=== PATIENT | male | born 1975 ===

== ENCOUNTER 2017-03-17 14:52 | Inpatient (IN) | payer OTHER ==
[2017-03-17 14:52] VITALS: BMI 38.8
[2017-03-17] MEDS ORDERED: Piperacillin/Tazobact 3.375 GM in Sodium Chloride 0.9% 100 ML IVPB STA (15:12)
[2017-03-17] MEDS ORDERED: Sodium Chloride 0.9% 1,000 ML IV STA ×2 (15:12→16:28)
--- NOTE | 2017-03-17 15:25 | ED PDOC ---
Lower Extremity Pain/Injury Time Seen by Provider: 03/17/17 15:01 Chief Complaint (Nursing): Lower Extremity Problem/Injury Chief Complaint (Provider): Left foot pain History Per: Patient History/Exam Limitations: no limitations Onset/Duration Of Symptoms: Worse Since (yesterday) Current Symptoms Are (Timing): Still Present Additional Complaint(s): Gucci is a 42 y/o male with a past medical history of diabetes and hypertension , who presents to the ED complaining of left foot pain, worsening since yesterday. Reports that he has had a wound to the bottom left foot for the past year but today noticed it became erythematous with associated swelling. Patient [facility] to be [facility] and has had multiple surgeries on his foot related to complications with diabetes. Admits that the last 2 weeks he has not had his diabetes medication because he ran out. Pain from the left foot radiates up to his left groin. Also complaining of polyuria and polydipsia, generalized weakness, fatigue, and excessive sleepiness. No associated fever, chills, or recent trauma. PMD: Unknown Past Medical History Reviewed: Historical Data, Nursing Documentation, Vital Signs Vital Signs: Last Vital Signs Temp 98.6 F 03/17/17 14:54 Pulse 89 03/17/17 14:54 Resp 19 03/17/17 14:54 BP 151/88 H 03/17/17 14:54 Pulse Ox 100 03/17/17 14:54 - Medical History PMH: Diabetes (type II, diabetic neuropathy w/in b/l feet, diabetic foot ulcers) , HTN, Hypercholesterolemia Denies: AMI-STEMI, Arthritis, CHF, COPD, CVA, Hepatitis, HIV, Hypothyroidism , Chronic Kidney Disease, Rheumatoid Arthritis, Seizures, Sexually Transmitted Disease Other PMH: diabetic neuropathy - Surgical History Surgical History: Denies: CABG Other surgeries: Foot surgery - Family History Family History: States: Diabetes, Hypertension - Social History Current smoker - smoking cessation education provided: No Alcohol: None Drugs: Denies - Immunization History Hx Tetanus Toxoid Vaccination: Yes - Home Medications Home Medications: Ambulatory Orders Medication Instructions Recorded MetFORMIN [glucoPHAGE] 1,000 mg PO BID 04/24/14 Glipizide 10 mg PO DAILY #30 tab 04/29/14 Atorvastatin [Lipitor] 20 mg PO DAILY 02/10/15 Lisinopril [Zestril] 5 mg PO DAILY 02/10/15 - Allergies Allergies/Adverse Reactions: Allergies Allergy/AdvReac Type Severity Reaction Status Date / Time No Known Allergies Allergy Verified 01/26/15 13:33 Review of Systems ROS Statement: Except As Marked, All Systems Reviewed And Found Negative (As per HPI) Constitutional: Positive for: Weakness (generalized), Other (Fatigue, sleepiness ). Negative for: Fever, Chills Gastrointestinal: Positive for: Other (Polyuria and polydipsia) Musculoskeletal: Positive for: Foot Pain (Left foot, radiating up to left groin , with erythema and swelling) Physical Exam - Reviewed Nursing Documentation Reviewed: Yes Vital Signs Reviewed: Yes - Physical Exam Appears: Positive for: Non-toxic, No Acute Distress Head Exam: Positive for: ATRAUMATIC, NORMOCEPHALIC Skin: Positive for: Warm, Dry Eye Exam: Positive for: EOMI, PERRL ENT: Positive for: Other (tacky muc membranes) Neck: Positive for: Painless ROM, Supple Cardiovascular/Chest: Positive for: Regular Rate, Rhythm, Chest Non Tender. Negative for: Murmur Respiratory: Positive for: Normal Breath Sounds. Negative for: Wheezing, Respiratory Distress Gastrointestinal/Abdominal: Positive for: Bowel Sounds, Soft. Negative for: Tenderness Back: Positive for: Normal Inspection. Negative for: Decreased ROM Extremity: Positive for: Calf Tenderness (LEFT), Swelling, Other (LEFT foot: open wound at plantar foot head of 5th metatarsal 1cm in depth, visible cartilage? (pale white tissue). Decreased light touch sentation bilateral feet.) Lymphatic: Negative for: Adenopathy Neurologic/Psych: Positive for: Alert. Negative for: Motor/Sensory Deficits - Laboratory Results Result Diagrams: 03/17/17 15:29 03/17/17 15:29 - ECG O2 Sat by Pulse Oximetry: 100 (RA) Pulse Ox Interpretation: Normal Medical Decision Making Medical Decision Making: Initial Impression: Diabetic foot ulceration, Hyperglycemia Differential also includes but not limited to: sepsis, DKA, electrolyte abnormality, osteomyelitis. Time: 15:02 Initial Plan: --CMP --Magnesium --Osmolality serum --Phosphorous --CBC --PTT --Prothrombin time --Blood and wound culture --Accucheck --VBG --NS IV 1000 ml at 1000 mls/hr --Vancomycin 1 gm IV --Zosyn IV --EKG --CXR one view --X-Ray Left Foot Pain --Pending reevaluation and disposition Labs demonstrate hyperglycemia with normal AG and VBG ph >7.30, elevated lactic acid, minimally elevated osmolality, normal WBC. IV insulin and additional IVF ordered. Does not meet sepsis criteria, but does have concerning glucose levels that require pt to be hospitalized and monitored. [facility] resident [facility] Pod[facility] resident [facility] pt findings. Time: 16:33 --Patient will be admitted to Inpatient Telemetry for Dehydration, Left foot diabetic foot ulceration and cellulitis, and Uncontrolled diabetes, under the care of Dr. Luz Maria Zapata Scribe Attestation: Documented by Cristina Jeffery, acting as a scribe for Natalia Henley MD Provider Scribe Attestation: All medical record entries made by the Scribe were at my direction and personally dictated by me. I have reviewed the chart and agree that the record accurately reflects my personal performance of the history, physical exam, medical decision making, and the department course for this patient. I have also personally directed, reviewed, and agree with the discharge instructions and disposition. Disposition - Clinical Impression Clinical Impression: Diabetic foot ulcer, Cellulitis of foot, Uncontrolled diabetes mellitus - Patient ED Disposition Is Patient to be Admitted: Yes - Disposition Disposition Time: 16:00 Condition: GUARDED - Pt Status Changed To: Hospital Disposition Of: Inpatient - Admit Certification Admit to Inpatient:: After my assessment, the patient will require hospitalization for at least two midnights. This is because of the severity of symptoms shown, intensity of services needed, and/or the medical risk in this patient being treated as an outpatient. - POA Present On Arrival: Poor Glycemic Control
[2017-03-17] MEDS ORDERED: Piperacillin/Tazobact 3.375 gm Inj IVPB ONE (15:27)
[2017-03-17 15:38] LABS: BASO # 0.1 K/uL (0.0-0.2); BASO % 0.8 % (0.0-2.0); EOS # 0.2 K/uL (0.0-0.7); HEMATOCRIT 41.3 % (35.0-51.0); LYMPH # 1.8 K/uL (1.0-4.3); LYMPH % 23.6 % (20.0-40.0); MEAN CELL VOLUME 84.9 fl (80.0-94.0); MEAN CORPUSCULAR HEMOGLOBIN 28.2 pg (27.0-31.0); MEAN CORPUSCULAR HGB CONC 33.2 g/dL (33.0-37.0); MEAN PLATELET VOLUME 10.9 fl (7.2-11.7); MONO # 0.5 K/uL (0.0-0.8); MONO % 7.2 % (0.0-10.0); NEUT % 65.4 % (50.0-75.0); NRBC % 0.2 % (0.0-0.0); RED CELL DISTRIBUTION WIDTH 13.6 % (11.5-14.5); WHITE BLOOD COUNT 7.6 K/uL (4.8-10.8)
[2017-03-17 15:48] LABS: VENOUS BLOOD GAS BASE EXCESS 2.4 mmol/L (0.0-2.0); VENOUS BLOOD GAS PCO2 60 mmHg (40-60); VENOUS BLOOD PH 7.31 (7.32-7.43)
[2017-03-17 15:49] LABS: PARTIAL THROMBOPLASTIN TIME 31.4 Seconds (25.6-37.1)
[2017-03-17 16:00] LABS: ALB/GLOB RATIO 1.1 (1.0-2.1); ALKALINE PHOSPHATASE 98 U/L (38-126); ALT/SGPT 117 U/L (21-72); AST/SGOT 58 U/L (17-59); BILIRUBIN,TOTAL 0.5 mg/dl (0.2-1.3); BLOOD UREA NITROGEN 17 mg/dl (9-20); CALCIUM 9.2 mg/dL (8.4-10.2); CARBON DIOXIDE 26 mmol/L (22-30); CHLORIDE 96 mmol/L (98-107); GFR AFRICAN-AMERICAN > 60; MAGNESIUM 1.5 MG/DL (1.6-2.3); PHOSPHOROUS 3.9 mg/dl (2.5-4.5); POTASSIUM 4.8 MMOL/L (3.6-5.0); SODIUM 134 mmol/l (132-148); TOTAL PROTEIN 7.5 G/DL (6.3-8.2)
[2017-03-17 16:10] LABS: GLUCOSE,RANDOM 614 mg/dL (75-110)
[2017-03-17] MEDS ORDERED: Insulin Regular 100 units/ml SC STA (16:11)
[2017-03-17] MEDS ORDERED: Insulin Regular 100 units/ml IVP STA ×2 (16:12→16:28)
[2017-03-17] MEDS ORDERED: Insulin Regular 100 units/ml ONE (16:30)
[2017-03-17] MEDS ORDERED: Vancomycin 1 g Inj ONE (16:56)
[2017-03-17] MEDS ORDERED: Magnesium Sulfate 2 gm/50 ml 2 GM/50 ML BAG IVPB ONE (17:10)
[2017-03-17 17:24] LABS: ABG ALLEN TEST YES; ARTERIAL BLOOD GAS HCO3 25.7 mmol/L (21-28); ARTERIAL BLOOD GAS PO2 80 mm/Hg (80-100)
--- NOTE | 2017-03-17 18:26 | CP.PCM.CON ---
History of Present Illness - History of Present Illness History of Present Illness: Podiatry consult note for Dr. Washington 42 y/o male with PMHx of DM, HTN, and hypercholestrolemia seen at bedside in ED for increased swelling and pain to his left foot. Patient states that he has had a wound on the bottom of the left foot for the past year but it has been open and getting worst for about 3 weeks now. 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 Patient states that he cleans the wound daily and changes the dressing. Patient states that he sees Dr. Gilmore but has not seen him over a year now. Patient states that the pain from his left foot is radiating up the leg. Patient denies of any other pedal complains at this time. Patient admits that he has not taken his diabetes medications for past couple of weeks because he ran out of them. Patient denies of any recent F/N/V/C/SOB/CP today. 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 Allergies: denies SHx: denies of smoking, drinking or any illicit drug usage Review of Systems - Constitutional Constitutional: As Per HPI Past Patient History - Infectious Disease Hx of Infectious Diseases: None - Tetanus Immunizations Tetanus Immunization: Unknown - Past Medical History & Family History Past Medical History?: Yes - Past Social History Alcohol: None Drugs: Denies - CARDIAC Hx Congestive Heart Failure: No Hx Hypercholesterolemia: Yes Hx Hypertension: Yes - PULMONARY Hx Chronic Obstructive Pulmonary Disease (COPD): No - NEUROLOGICAL Hx Seizures: No - HEENT Hx HEENT Problems: No - RENAL Hx Chronic Kidney Disease: No - ENDOCRINE/METABOLIC Hx Hypothyroidism: No - HEMATOLOGICAL/ONCOLOGICAL Hx Human Immunodeficiency Virus (HIV): No - INTEGUMENTARY Hx Dermatological Problems: No Hx Cellulitis: Yes - MUSCULOSKELETAL/RHEUMATOLOGICAL Hx Arthritis: No Hx Rheumatoid Arthritis: No - GASTROINTESTINAL Hx Gastrointestinal Disorders: No - GENITOURINARY/GYNECOLOGICAL Hx Sexually Transmitted Disorders: No - PSYCHIATRIC Hx Psychophysiologic Disorder: No Hx Substance Use: No - SURGICAL HISTORY Hx Coronary Artery Bypass Graft: No - ANESTHESIA Hx Anesthesia: Yes Hx Anesthesia Reactions: No Hx Malignant Hyperthermia: No Meds Allergies/Adverse Reactions: Allergies Allergy/AdvReac Type Severity Reaction Status Date / Time No Known Allergies Allergy Verified 01/26/15 13:33 Physical Exam - Constitutional Appears: Well, Non-toxic, No Acute Distress - Extremities Exam Additional comments: Bilateral LE exam" VASC: DP/PT pulses are palpable 2/4 b/l, PACU NURSE: < 3 sec to all digits, TG: warm to cool on right and warm to warm on left, non-pitting edema noted on the left foot DERM: Wound present measuring approximately 3.0 x 2.5 x 0.3 cm on the plantar lateral aspect submet head 5 on the left, wound base is approx. 70% granular and 30% fibrotic with haile-wound hyperkeratotic rim, minimal serous drainage noted from the wound bed, no foul odor, no probe to bone, no purulent drainage, no undermining, periwound erythema extending from lateral aspect of the left foot to the dorso-lateral aspect of the left foot NEURO: Protective sensation mildly diminished ORTHO: tenderness on palpation of the haile-wound area, 4th digit amputation on the left, rigit contracture of the digits noted on the right - Neurological Exam Neurological exam: Alert, Oriented x3 - Psychiatric Exam Psychiatric exam: Normal Affect, Normal Mood Results - Vital Signs Recent Vital Signs: Last Vital Signs Temp 98.9 F 03/17/17 17:59 Pulse 66 03/17/17 17:59 Resp 16 03/17/17 17:59 BP 143/80 03/17/17 17:59 Pulse Ox 95 03/17/17 17:59 - Labs Result Diagrams: 03/17/17 15:29 03/17/17 15:29 Labs: Laboratory Results - last 24 hr 03/17/17 17:15 pCO2 42 pO2 80 HCO3 25.7 ABG pH 7.40 ABG Total CO2 27.3 ABG O2 Saturation 96.1 ABG Base Excess 1.0 Vinicio Test Yes ABG Potassium 3.9 A-a O2 Difference 17.0 Sodium 132.0 Chloride 106.0 Glucose 363 H Lactate 2.2 H FiO2 21.0 Arterial Blood Potassium 3.9 Assessment & Plan - Assessment and Plan (Free Text) Assessment: 42 y/o male seen at bedside in ED for an 1). open wound 2). Cellulitis 3). 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 Washington Labs and vitals reviewed (afebrile; WBC @ 7.6, glucose level @ 614 mg/dL) Wound site cleaned using saline and dressed using syntal, DSD Cultures taken in ED X-rays taken/reviewed -diffuse radiodensity with radiolucency with mirtha fragmentation noted at the level of the midfoot possibly concerning charcot changes Patient to remain on strict non-weight bearing to left lower extremity while in the hospital Patient is to be admitted to control hyperglycemia Patient will be followed by podiatry while in-house - Thank you for the podiatry consult - Date & Time Date: 03/17/17 Time: 18:41
--- NOTE | 2017-03-17 19:27 | CP.PCM.HP ---
<Carline Llanos - Last Filed: 03/17/17 22:57> History of Present Illness - History of Present Illness History of Present Illness: 42 yo, m, PMhx/o DM, HTN, hypercholestrolemia present to ED c/o left foot ulcer noticed 2 weeks ago, associated with left leg pain started last night radiated up to the groin and redness of the foot dorsal area noticed today in the morning. He states he has had a ulcer on his foot the last year but it healed and now it opened again and got worse for the last 2 weeks. PAtient states that he sees Dr. Toro but has not seen him over a year. He also reports polyuria, polydipsia for the last week. He denies recent truma, fever, abdominal pain, headache, dizziness, confussion, chest pain, SOB. Patient has not been taking his diabetes medications for the last 2 weeks because his joi care 1 year ago. Last visit to [facility] 09/2015. PMD: Dr marni Johnson. 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 70% granular and 30% fibrotic with haile- wound hyperkeratotic rim, minimal serous drainage noted from the wound bed, no foul odor, no probe to bone, no purulent drainage, no undermining, periwound erythema extending from lateral aspect of the left foot to the dorso-lateral aspect of the left foot Labs CBc normal no leukocytosis. Blood sugar 614 AVG: PH 7.4 normal, serum osmolality 318. anion gap normal .lactate 2.8=> 1.7 , no SIRS criteria, no septic Imaging Left Foot:diffuse radiodensity with radiolucency with mirtha fragmentation noted at the level of the midfoot possibly concerning charcot changes Meds s/p Vanco 1 gm insulin 10 u Iv NS 2 liters Present on Admission - Present on Admission Any Indicators Present on Admission: No History of DVT/PE: No History of Uncontrolled Diabetes: No Urinary Catheter: No Decubitus Ulcer Present: No Review of Systems - Musculoskeletal Additional comments: left foot ulcer, left leg pain, left foot redness Past Patient History - Infectious Disease Hx of Infectious Diseases: None - Tetanus Immunizations Tetanus Immunization: Unknown - Past Medical History & Family History Past Medical History?: Yes - Past Social History Alcohol: None Drugs: Denies - CARDIAC Hx Congestive Heart Failure: No Hx Hypercholesterolemia: Yes Hx Hypertension: Yes - PULMONARY Hx Chronic Obstructive Pulmonary Disease (COPD): No - NEUROLOGICAL Hx Seizures: No - HEENT Hx HEENT Problems: No - RENAL Hx Chronic Kidney Disease: No - ENDOCRINE/METABOLIC Hx Hypothyroidism: No - HEMATOLOGICAL/ONCOLOGICAL Hx Human Immunodeficiency Virus (HIV): No - INTEGUMENTARY Hx Dermatological Problems: No Hx Cellulitis: Yes - MUSCULOSKELETAL/RHEUMATOLOGICAL Hx Arthritis: No Hx Rheumatoid Arthritis: No - GASTROINTESTINAL Hx Gastrointestinal Disorders: No - GENITOURINARY/GYNECOLOGICAL Hx Sexually Transmitted Disorders: No - PSYCHIATRIC Hx Psychophysiologic Disorder: No Hx Substance Use: No - SURGICAL HISTORY Hx Coronary Artery Bypass Graft: No - ANESTHESIA Hx Anesthesia: Yes Hx Anesthesia Reactions: No Hx Malignant Hyperthermia: No Meds Allergies/Adverse Reactions: Allergies Allergy/AdvReac Type Severity Reaction Status Date / Time No Known Allergies Allergy Verified 01/26/15 13:33 Physical Exam - Constitutional Appears: Non-toxic, No Acute Distress - Head Exam Head Exam: ATRAUMATIC, NORMOCEPHALIC - Eye Exam Eye Exam: Normal appearance - Respiratory Exam Respiratory Exam: Clear to Auscultation Bilateral. absent: Rales, Rhonchi, Wheezes - Cardiovascular Exam Cardiovascular Exam: REGULAR RHYTHM, +S1, +S2 - GI/Abdominal Exam GI & Abdominal Exam: Normal Bowel Sounds, Soft. absent: Tenderness - Extremities Exam Additional comments: left DP PT pulses faint - Expanded Lower Extremities Exam Left Foot/Toe exam: amputation ( fith toe amputation), erythema (dorsal surface foot) , swelling, tenderness - Neurological Exam Neurological exam: Alert, Oriented x3 - Psychiatric Exam Psychiatric exam: Normal Affect, Normal Mood Results - Vital Signs Recent Vital Signs: Last Vital Signs Temp 98.9 F 03/17/17 17:59 Pulse 66 03/17/17 17:59 Resp 16 03/17/17 17:59 BP 143/80 03/17/17 17:59 Pulse Ox 95 03/17/17 17:59 - Labs Result Diagrams: 03/17/17 15:29 03/17/17 15:29 Labs: Laboratory Results - last 24 hr 03/17/17 17:15 pCO2 42 pO2 80 HCO3 25.7 ABG pH 7.40 ABG Total CO2 27.3 ABG O2 Saturation 96.1 ABG Base Excess 1.0 Vinicio Test Yes ABG Potassium 3.9 A-a O2 Difference 17.0 Sodium 132.0 Chloride 106.0 Glucose 363 H Lactate 2.2 H FiO2 21.0 Arterial Blood Potassium 3.9 Assessment & Plan - Assessment and Plan (Free Text) Plan: 42 yo, m, PMhx/o DM, HTN, hypercholesterolemia present to ED c/o left foot ulcer noticed 2 weeks ago,associated with pain and erythema, admitted for left foot ulceration, cellulitis and uncotrolled diabetes. Assessment/Plan 1) Left foot ulcer with secondary cellulitis -vancomycin IV Q12h -Zosyn IV q6h -Podiatry consult appreciated Xr left foot: Left Foot:diffuse radiodensity with radiolucency with mirtha fragmentation noted at the level of the midfoot possibly concerning charcot changes -wound care done by podiatry 2) Type 2 DM uncontrolled -s/p ED insulin regular 10 u IV -Insulin sliding protocol -iv fluids NS 120 ml/h -hypoglycemic protocol -f/u [id number] -Diabetic diet - Metformin 1000 mg BID Home meds hold -Glipizide 5 mg BID 3) HTN controlled -lisinopril 10 mg po daily (by [facility]) 4) Hypercholesterolemia -f/u lipid panel -Atorvastatin 20 mg po daily (by [facility]) Hold ALT 117 5) DVT prophylaxis Lovenox 40 mg sc daily <Luz Maria Zapata - Last Filed: 03/18/17 07:21> Physical Exam - Skin Additional comments: CHART REVIEWED. CASE DISCUSSED AT LENGTH WITH RESIDENT. AGREE WITH INITIAL TREATMENT AND PLAN. Results - Vital Signs Recent Vital Signs: Last Vital Signs Temp 97.6 F 03/18/17 05:10 Pulse 54 L 03/18/17 05:10 Resp 20 03/18/17 05:10 BP 129/72 03/18/17 05:10 Pulse Ox 96 03/18/17 05:10 - Labs Result Diagrams: 03/18/17 04:25 03/18/17 04:25 Labs: Laboratory Results - last 24 hr 03/17/17 03/17/17 03/17/17 17:15 19:40 20:27 WBC RBC Hgb Hct MCV MCH MCHC RDW Plt Count pCO2 42 pO2 80 42 HCO3 25.7 ABG pH 7.40 ABG Total CO2 27.3 ABG O2 Saturation 96.1 ABG Base Excess 1.0 Vinicio Test Yes ABG Potassium 3.9 VBG pH 7.39 VBG pCO2 44 VBG HCO3 25.3 VBG Total CO2 28.0 VBG O2 Sat (Calc) 82.5 H VBG Base Excess 1.2 VBG Potassium 3.7 A-a O2 Difference 17.0 53.0 Sodium 132.0 132.0 Chloride 106.0 104.0 Glucose 363 H 314 H Lactate 2.2 H 1.7 FiO2 21.0 21.0 Crit Value Called To Erica hollis Crit Value Called By 23 Crit Value Read Back Y Blood Gas Notified Time 1946 Potassium Carbon Dioxide Anion Gap BUN Creatinine Est GFR ( Amer) Est GFR (Non-Af Amer) POC Glucose (mg/dL) 300 H Random Glucose Calcium Phosphorus Magnesium Total Bilirubin AST ALT Alkaline Phosphatase Total Protein Albumin Globulin Albumin/Globulin Ratio Triglycerides Cholesterol LDL Cholesterol Direct HDL Cholesterol Arterial Blood Potassium 3.9 Venous Blood Potassium 3.7 03/17/17 03/18/17 03/18/17 21:14 04:25 04:25 WBC 7.9 RBC 4.35 L Hgb 11.9 L Hct 36.9 MCV 84.7 MCH 27.4 MCHC 32.4 L RDW 13.7 Plt Count 187 pCO2 pO2 HCO3 ABG pH ABG Total CO2 ABG O2 Saturation ABG Base Excess Vinicio Test ABG Potassium VBG pH VBG pCO2 VBG HCO3 VBG Total CO2 VBG O2 Sat (Calc) VBG Base Excess VBG Potassium A-a O2 Difference Sodium 139 Chloride 103 Glucose Lactate FiO2 Crit Value Called To Crit Value Called By Crit Value Read Back Blood Gas Notified Time Potassium 4.2 Carbon Dioxide 28 Anion Gap 12 BUN 8 L Creatinine 0.6 L Est GFR ( Amer) > 60 Est GFR (Non-Af Amer) > 60 POC Glucose (mg/dL) 261 H Random Glucose 244 H Calcium 8.5 Phosphorus 3.2 Magnesium 1.7 Total Bilirubin 0.6 AST 58 ALT 100 H Alkaline Phosphatase 75 Total Protein 6.4 Albumin 3.3 L Globulin 3.1 Albumin/Globulin Ratio 1.1 Triglycerides 262 H D Cholesterol 141 LDL Cholesterol Direct 74 HDL Cholesterol 25 L Arterial Blood Potassium Venous Blood Potassium 03/18/17 05:22 WBC RBC Hgb Hct MCV MCH MCHC RDW Plt Count pCO2 pO2 HCO3 ABG pH ABG Total CO2 ABG O2 Saturation ABG Base Excess Vinicio Test ABG Potassium VBG pH VBG pCO2 VBG HCO3 VBG Total CO2 VBG O2 Sat (Calc) VBG Base Excess VBG Potassium A-a O2 Difference Sodium Chloride Glucose Lactate FiO2 Crit Value Called To Crit Value Called By Crit Value Read Back Blood Gas Notified Time Potassium Carbon Dioxide Anion Gap BUN Creatinine Est GFR ( Amer) Est GFR (Non-Af Amer) POC Glucose (mg/dL) 245 H Random Glucose Calcium Phosphorus Magnesium Total Bilirubin AST ALT Alkaline Phosphatase Total Protein Albumin Globulin Albumin/Globulin Ratio Triglycerides Cholesterol LDL Cholesterol Direct HDL Cholesterol Arterial Blood Potassium Venous Blood Potassium
[2017-03-17 19:52] LABS: VENOUS BLOOD GAS BASE EXCESS 1.2 mmol/L (0.0-2.0); VENOUS BLOOD GAS PCO2 44 mmHg (40-60); VENOUS BLOOD PH 7.39 (7.32-7.43)
[2017-03-17] MEDS ORDERED: Dextrose 50% SYRINGE Inj (50 ml) IV PRN (20:10)
[2017-03-17] MEDS ORDERED: Glucagon Recombinant 1 mg Inj IM PRN (20:10)
[2017-03-17] MEDS ORDERED: Piperacillin/Tazobact 3.375 GM in Sodium Chloride 0.9% 100 ML IVPB SCH (21:00)
[2017-03-17] MEDS ORDERED: Insulin Lispro (humaLOG) 100 Units/ml Inj SC SCH (22:00)
[2017-03-17] MEDS: Sodium Chloride 0.9% 1,000 ML IV SCH (22:38)
[2017-03-17] MEDS: Piperacillin/Tazobact 3.375 GM in Sodium Chloride 0.9% 100 ML IVPB SCH (22:38)
[2017-03-18] MEDS: Piperacillin/Tazobact 3.375 GM in Sodium Chloride 0.9% 100 ML IVPB SCH ×4 (03:38→21:44)
[2017-03-18 05:15] LABS: HEMATOCRIT 36.9 % (35.0-51.0); MEAN CELL VOLUME 84.7 fl (80.0-94.0); MEAN CORPUSCULAR HEMOGLOBIN 27.4 pg (27.0-31.0); MEAN CORPUSCULAR HGB CONC 32.4 g/dL (33.0-37.0); RED CELL DISTRIBUTION WIDTH 13.7 % (11.5-14.5); WHITE BLOOD COUNT 7.9 K/uL (4.8-10.8)
[2017-03-18 05:23] LABS: ALB/GLOB RATIO 1.1 (1.0-2.1); ALKALINE PHOSPHATASE 75 U/L (38-126); ALT/SGPT 100 U/L (21-72); AST/SGOT 58 U/L (17-59); BILIRUBIN,TOTAL 0.6 mg/dl (0.2-1.3); BLOOD UREA NITROGEN 8 mg/dl (9-20); CALCIUM 8.5 mg/dL (8.4-10.2); CARBON DIOXIDE 28 mmol/L (22-30); CHLORIDE 103 mmol/L (98-107); CHOLESTEROL 141 mg/dL (0-199); GFR AFRICAN-AMERICAN > 60; GLUCOSE,RANDOM 244 mg/dL (75-110); MAGNESIUM 1.7 MG/DL (1.6-2.3); PHOSPHOROUS 3.2 mg/dl (2.5-4.5); POTASSIUM 4.2 MMOL/L (3.6-5.0); SODIUM 139 mmol/l (132-148); TOTAL PROTEIN 6.4 G/DL (6.3-8.2)
[2017-03-18] MEDS: Sodium Chloride 0.9% 1,000 ML IV SCH ×2 (05:35→14:11)
--- NOTE | 2017-03-18 08:23 | CP.PCM.PN ---
Subjective - Date & Time of Evaluation Date of Evaluation: 03/18/17 Time of Evaluation: 08:21 - Subjective Subjective: Podiatry consult note for Dr. Washington 42 y/o male with PMHx of DM, HTN, and hypercholestrolemia seen at bedside for increased swelling and pain to his left foot with plantar ulceration at level of left fifth met head. Patient states that the pain from his left foot is radiating up the leg but decreased from yesterday. Patient denies of any other pedal complains at this time. Patient admits that he has not taken his diabetes medications for past couple of weeks because he ran out of them. Patient denies of any recent F/N/V/C/SOB/CP today. Objective - Vital Signs/Intake and Output Vital Signs (last 24 hours): Temp Pulse Resp BP Pulse Ox 97.6 F 54 L 20 129/72 96 03/18/17 05:10 03/18/17 05:10 03/18/17 05:10 03/18/17 05:10 03/18/17 05:10 - Medications Medications: Current Medications Collagenase (Santyl) 1 applic TOP DAILY [facility] Dextrose (Dextrose 50% Inj) 0 ml IV STAT PRN; Protocol PRN Reason: Hyglycemia Protocol Dextrose (Glutose 15) 0 gm PO ONCE PRN; Protocol PRN Reason: Hypoglycemia Protocol Enoxaparin Sodium (Lovenox) 40 mg SC DAILY [facility] PRN Reason: Protocol Glucagon (Glucagen Diagnostic Kit) 0 mg IM STAT PRN; Protocol PRN Reason: Hypoglycemia Protocol Vancomycin HCl 1 gm/ Sodium (Chloride) 250 mls @ 166.667 mls/hr IVPB Q12 [facility] Last Admin: 03/18/17 05:38 Dose: 166.667 mls/hr Sodium Chloride (Sodium Chloride 0.9%) 1,000 mls @ 120 mls/hr IV .Q8H20M [facility] Stop: 03/18/17 20:17 Last Admin: 03/18/17 05:35 Dose: Not Given Piperacillin Sod/Tazobactam (Sod 3.375 gm/ Sodium Chloride) 100 mls @ 100 mls/ hr IVPB Q6H [facility] Last Admin: 03/18/17 03:38 Dose: 100 mls/hr Insulin Human Lispro (Humalog) 0 units SC ACHS [facility] PRN Reason: Protocol Last Admin: 03/17/17 22:32 Dose: Not Given - Labs Labs: 03/18/17 04:25 03/18/17 04:25 PT 11.5 Seconds (9.8-13.1) 03/17/17 15:29 INR 1.1 (0.9-1.2) 03/17/17 15:29 APTT 31.4 Seconds (25.6-37.1) 03/17/17 15:29 - Constitutional Appears: Well, Non-toxic, No Acute Distress - Extremities Exam Additional comments: Bilateral LE exam VASC: DP/PT pulses are palpable 2/4 b/l no bounding pulses noted, MANAGER 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 open wound 2). Cellulitis 3). 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 Washington Labs and vitals reviewed (afebrile; WBC 7.9, glucose 244) Wound site cleaned using saline and dressed using santyl, DSD Wound cx pending X-rays taken/reviewed -diffuse radiodensity with radiolucency with mirtha fragmentation noted at the level of the midfoot possibly concerning charcot changes Patient to remain on strict non-weight bearing to left lower extremity while in the hospital Patient advised of importance to remaining nonweight bearing MRI ordered to determine OM vs Charcot Podiatry will continue to follow while patient in house
--- NOTE | 2017-03-18 08:44 | CP.PCM.PN ---
<Umu Perla - Last Filed: 03/18/17 13:52> Subjective - Date & Time of Evaluation Date of Evaluation: 03/18/17 Time of Evaluation: 07:40 - Subjective Subjective: No acute overnight events. Patient seen and examined bedside with senior resident. No complaints offered. Pain and erythema of left foot improved. Patients ulceration started 3 weeks ago after stepping on glass while wearing open sandals. but states it has been on and off for the past year. He states he ran out of his diabetes medications about two weeks ago. He admits to polyuria, no polydipsia/polyphagia. He was still taking his Lisinopril 10 mg. Was seeing a PCP in [place]. Last visit to [facility] was 09/2016. Objective - Vital Signs/Intake and Output Vital Signs (last 24 hours): Temp Pulse Resp BP Pulse Ox 97.6 F 51 L 18 146/82 96 03/18/17 08:00 03/18/17 08:00 03/18/17 08:00 03/18/17 08:00 03/18/17 08:00 - Medications Medications: Current Medications Collagenase (Santyl) 1 applic TOP DAILY [facility] Dextrose (Dextrose 50% Inj) 0 ml IV STAT PRN; Protocol PRN Reason: Hyglycemia Protocol Dextrose (Glutose 15) 0 gm PO ONCE PRN; Protocol PRN Reason: Hypoglycemia Protocol Enoxaparin Sodium (Lovenox) 40 mg SC DAILY [facility] PRN Reason: Protocol Glucagon (Glucagen Diagnostic Kit) 0 mg IM STAT PRN; Protocol PRN Reason: Hypoglycemia Protocol Vancomycin HCl 1 gm/ Sodium (Chloride) 250 mls @ 166.667 mls/hr IVPB Q12 [facility] Last Admin: 03/18/17 05:38 Dose: 166.667 mls/hr Sodium Chloride (Sodium Chloride 0.9%) 1,000 mls @ 120 mls/hr IV .Q8H20M [facility] Stop: 03/18/17 20:17 Last Admin: 03/18/17 05:35 Dose: Not Given Piperacillin Sod/Tazobactam (Sod 3.375 gm/ Sodium Chloride) 100 mls @ 100 mls/ hr IVPB Q6H [facility] Last Admin: 03/18/17 03:38 Dose: 100 mls/hr Insulin Human Lispro (Humalog) 0 units SC ACHS [facility] PRN Reason: Protocol Last Admin: 03/17/17 22:32 Dose: Not Given - Labs Labs: 03/18/17 04:25 03/18/17 04:25 PT 11.5 Seconds (9.8-13.1) 03/17/17 15:29 INR 1.1 (0.9-1.2) 03/17/17 15:29 APTT 31.4 Seconds (25.6-37.1) 03/17/17 15:29 - Constitutional Appears: Well (obese male ), No Acute Distress - Head Exam Head Exam: NORMAL INSPECTION - Eye Exam Eye Exam: Normal appearance - ENT Exam ENT Exam: Mucous Membranes Moist - Neck Exam Neck Exam: Normal Inspection - Respiratory Exam Respiratory Exam: Decreased Breath Sounds, NORMAL BREATHING PATTERN - Cardiovascular Exam Cardiovascular Exam: REGULAR RHYTHM, +S1, +S2 - GI/Abdominal Exam GI & Abdominal Exam: Soft, Normal Bowel Sounds. absent: Distended, Guarding, Tenderness - Extremities Exam Extremities Exam: absent: Pedal Edema - Back Exam Back Exam: NORMAL INSPECTION - Neurological Exam Neurological Exam: Alert, Awake, CN II-XII Intact, Oriented x3 - Psychiatric Exam Psychiatric exam: Normal Affect, Normal Mood - Skin Skin Exam: Dry Additional comments: incisional scar noted, healed. approx 3x2 cm open wound on lateral aspect on head of 5th digit on the left foot , no malodor, no drainage, no bleeding. gross sensation intact. DP/PT pulses barely palpable, lower extremity warm to touch. Assessment and Plan - Assessment and Plan (Free Text) Assessment: 42 year old male with PMH of DM, HTN, HLD presents to ED complaining of left foot ulcer noticed 3 weeks ago with associated with pain and erythema, admitted for diabetic wound infection with open ulceration and cellulitis, and hyperglycemia 2' to uncontrolled DM. Continue with IV antibiotics. Glucose control. #. Diabetic wound infection, open ulceration and cellulitis patient is afebrile, no leukocytosis -vancomycin IV Q12H, Zosyn IV Q6H -vancomycin is not weight based dosing. will follow vanco trough and adjust accordingly. -Podiatry consult appreciated -xray reviewed, MRI recommended. will d/w Podiatry. ESR 39. -wound care done by podiatry #.Uncontrolled Diabetes -HGA1C: 13.0 -Insulin sliding protocol -hypoglycemic protocol -Diabetic diet, diabetes education. will monitor BG, will likely need insulin. -Metformin 1000 mg BID. Glipizide 5 mg resumed #. HTN -controlled, one episode of BP: 151/81, pt had not been given his BP meds -lisinopril 10 mg po daily resumed #. HLD -ASCVD risk: 11.7% Lipid Panel: T, Total Chol: 141, LDL: 74, HDL : 25 -Atorvastatin 20 mg po daily resumed #. DVT prophylaxis Lovenox 40 mg sc daily <Luz Maria Zapata - Last Filed: 03/19/17 08:07> Objective - Vital Signs/Intake and Output Vital Signs (last 24 hours): Temp Pulse Resp BP Pulse Ox 97.5 F L 52 L 18 142/84 97 03/19/17 07:50 03/19/17 07:50 03/19/17 07:50 03/19/17 07:50 03/19/17 07:50 - Medications Medications: Current Medications Atorvastatin Calcium (Lipitor) 20 mg PO HS [facility] Last Admin: 03/18/17 22:40 Dose: 20 mg Collagenase (Santyl) 1 applic TOP DAILY [facility] Dextrose (Dextrose 50% Inj) 0 ml IV STAT PRN; Protocol PRN Reason: Hyglycemia Protocol Dextrose (Glutose 15) 0 gm PO ONCE PRN; Protocol PRN Reason: Hypoglycemia Protocol Enoxaparin Sodium (Lovenox) 40 mg SC DAILY [facility] PRN Reason: Protocol Last Admin: 03/18/17 10:02 Dose: 40 mg Glipizide (Glucotrol) 10 mg PO ACB [facility] Glucagon (Glucagen Diagnostic Kit) 0 mg IM STAT PRN; Protocol PRN Reason: Hypoglycemia Protocol Vancomycin HCl 1 gm/ Sodium (Chloride) 250 mls @ 166.667 mls/hr IVPB Q12 [facility] Last Admin: 03/18/17 20:15 Dose: 166.667 mls/hr Piperacillin Sod/Tazobactam (Sod 3.375 gm/ Sodium Chloride) 100 mls @ 100 mls/ hr IVPB Q6H [facility] Last Admin: 03/19/17 03:37 Dose: 100 mls/hr Insulin Human Lispro (Humalog) 0 units SC ACHS [facility] PRN Reason: Protocol Last Admin: 03/19/17 06:59 Dose: 3 units Lisinopril (Zestril) 10 mg PO DAILY [facility] Last Admin: 03/18/17 14:09 Dose: 10 mg Metformin HCl (Glucophage) 1,000 mg PO BIDWM [facility] Last Admin: 03/18/17 17:53 Dose: 1,000 mg - Labs Labs: 03/18/17 04:25 03/18/17 04:25 PT 11.5 Seconds (9.8-13.1) 03/17/17 15:29 INR 1.1 (0.9-1.2) 03/17/17 15:29 APTT 31.4 Seconds (25.6-37.1) 03/17/17 15:29 - Skin Additional comments: ADDENDUM ATTENDING NOTE PATIENT SEEN AND EXAMINED. CASE DISCUSSED WITH RESIDENT. AGREE WITH FINDINGS AND PLAN. CONTINUE GLUCOSE TREATMENT, IV ANTIBIOTICS, PODIATRY ON CONSULT.
--- NOTE | 2017-03-18 09:14 | RAD ---
PROCEDURE: CHEST RADIOGRAPH, 1 VIEW HISTORY: wewakness hyperglycemia COMPARISON: Portable chest 07/30/2015 FINDINGS: LUNGS: Inspiratory volume appears improved. No interval infiltrate appreciated. PLEURA: No pneumothorax or pleural fluid seen. CARDIOVASCULAR: Somewhat prominent cardiac silhouette to be a function of frontal technical magnification. Clinically correlate for potential cardiomegaly. . OSSEOUS STRUCTURES: No significant abnormalities. VISUALIZED UPPER ABDOMEN: Normal. OTHER FINDINGS: None. IMPRESSION: No interval infiltrate appreciated. No pleural effusion identified.
--- NOTE | 2017-03-18 09:36 | RAD ---
PROCEDURE: Left Foot Radiographs. HISTORY: LEFT foot wound COMPARISON: Prior left foot radiographs 06/01/2016 FINDINGS: BONES: Surgically absent 4th digit is again appreciated as well as partial indication of the 4th metatarsal bone appear residual bone or heterotopic bone is seen distal to the osteotomy site at the 4th metatarsal bone once again. Partial amputation of the 3rd metatarsal bone is also again identified. Interval moderate foreshortening of the 1st metatarsal bone is appreciated at its proximal segment with tremendous osteophytosis and irregular cortical articular change involving the articulation with the medial cuneiform bone. The lateral portion the medial cuneiform 1st metatarsal joint space appears widened. Osteomyelitis is including the differential diagnosis here though this is not definite. Emphysema soft tissue changes are seen underlying the plane of the 5th metatarsophalangeal joint region suspicious for a soft tissue ulcer. No accompanying bony erosion or production to suggest osteomyelitis. Follow-up MRI is advised. JOINTS: Advanced degenerative changes seen at the 2nd metatarsophalangeal joint in appear stable. Gross degenerative changes are appreciated at the medial cuneiform 1st metatarsal joint. SOFT TISSUES: As above. OTHER FINDINGS: None. IMPRESSION: Gross degenerative pattern at the 1st metatarsal articulates with the cuneiform bone may be on an infectious basis instead of advanced osteoarthritis in such a short time frame compared to prior radiograph series of the left foot 06/01/2016. An ulcer is suspected in soft tissues superficial to the 5th metatarsophalangeal joint as well. Follow-up MRI is advised to exclude osteomyelitis particularly at the 1st metatarsal bone. Prior 4th digit/partial 4th metatarsal amputation again evident. End dictation of the distal portion of the 3rd metatarsal bones also evident.
[2017-03-18] MEDS: Enoxaparin 40 mg Syringe SC SCH (10:02)
[2017-03-18] MEDS: Insulin Lispro (humaLOG) 100 Units/ml Inj SC SCH ×3 (14:10→22:15)
--- NOTE | 2017-03-18 21:53 | CARD ---
APPROVED REPORT EKG Measurement Heart [id number] <Conclusion> Normal sinus rhythm Normal ECG
[2017-03-19] MEDS: Piperacillin/Tazobact 3.375 GM in Sodium Chloride 0.9% 100 ML IVPB SCH ×2 (03:37→09:15)
--- NOTE | 2017-03-19 06:44 | CP.PCM.PN ---
<Umu Perla - Last Filed: 03/19/17 10:51> Subjective - Date & Time of Evaluation Date of Evaluation: 03/19/17 Time of Evaluation: 07:31 - Subjective Subjective: No acute overnight events. No complaints offered. Pt states he was seen by podiatry this morning, foot was cleaned and wrapped. No malodor. Patients blood glucose remains elevated, >245-300s on current medications. Will increase Glipizide to 10mg. MRI pending. Case d/w Podiatry. Will d/c zosyn. Continue with Vanco. Objective - Vital Signs/Intake and Output Vital Signs (last 24 hours): Temp Pulse Resp BP Pulse Ox 98.2 F 53 L 20 129/70 96 03/19/17 04:56 03/19/17 04:56 03/19/17 04:56 03/19/17 04:56 03/19/17 04:56 Intake and Output: 03/18/17 03/19/17 18:59 06:59 Intake Total 2000 Output Total 1200 Balance 800 - Medications Medications: Current Medications Atorvastatin Calcium (Lipitor) 20 mg PO HS [facility] Last Admin: 03/18/17 22:40 Dose: 20 mg Collagenase (Santyl) 1 applic TOP DAILY [facility] Dextrose (Dextrose 50% Inj) 0 ml IV STAT PRN; Protocol PRN Reason: Hyglycemia Protocol Dextrose (Glutose 15) 0 gm PO ONCE PRN; Protocol PRN Reason: Hypoglycemia Protocol Enoxaparin Sodium (Lovenox) 40 mg SC DAILY [facility] PRN Reason: Protocol Last Admin: 03/18/17 10:02 Dose: 40 mg Glipizide (Glucotrol) 10 mg PO ACB [facility] Glucagon (Glucagen Diagnostic Kit) 0 mg IM STAT PRN; Protocol PRN Reason: Hypoglycemia Protocol Vancomycin HCl 1 gm/ Sodium (Chloride) 250 mls @ 166.667 mls/hr IVPB Q12 [facility] Last Admin: 03/18/17 20:15 Dose: 166.667 mls/hr Piperacillin Sod/Tazobactam (Sod 3.375 gm/ Sodium Chloride) 100 mls @ 100 mls/ hr IVPB Q6H [facility] Last Admin: 03/19/17 03:37 Dose: 100 mls/hr Insulin Human Lispro (Humalog) 0 units SC ACHS [facility] PRN Reason: Protocol Last Admin: 03/18/17 22:15 Dose: Not Given Lisinopril (Zestril) 10 mg PO DAILY [facility] Last Admin: 03/18/17 14:09 Dose: 10 mg Metformin HCl (Glucophage) 1,000 mg PO BIDWM [facility] Last Admin: 03/18/17 17:53 Dose: 1,000 mg - Labs Labs: 03/18/17 04:25 03/18/17 04:25 PT 11.5 Seconds (9.8-13.1) 03/17/17 15:29 INR 1.1 (0.9-1.2) 03/17/17 15:29 APTT 31.4 Seconds (25.6-37.1) 03/17/17 15:29 - Constitutional Appears: Well, Non-toxic, No Acute Distress - Head Exam Head Exam: ATRAUMATIC, NORMAL INSPECTION, NORMOCEPHALIC - Eye Exam Eye Exam: EOMI, Normal appearance, PERRL - ENT Exam ENT Exam: Mucous Membranes Moist, Normal Exam - Respiratory Exam Respiratory Exam: NORMAL BREATHING PATTERN - Cardiovascular Exam Cardiovascular Exam: Bradycardia, REGULAR RHYTHM, +S1, +S2 - GI/Abdominal Exam GI & Abdominal Exam: Soft, Normal Bowel Sounds. absent: Distended, Guarding, Tenderness - Extremities Exam Extremities Exam: absent: Pedal Edema Additional comments: left foot wrapped in kerlix, clean and dry - Neurological Exam Neurological Exam: Alert, Awake, CN II-XII Intact, Oriented x3 - Psychiatric Exam Psychiatric exam: Normal Affect, Normal Mood - Skin Skin Exam: Dry, Intact, Normal Color, Warm Assessment and Plan - Assessment and Plan (Free Text) Assessment: 42 year old male with PMH of DM, HTN, HLD presents to ED complaining of left foot ulcer noticed 3 weeks ago with associated with pain and erythema, admitted for diabetic wound infection with open ulceration and cellulitis, and hyperglycemia 2' to uncontrolled DM. Day 2 of IV antibiotics. continue vanco, d/c zosyn #. Diabetic wound infection, open ulceration and cellulitis -cultures +staph aureus, sensitivities reviewed. -vancomycin IV Q12H, zosyn d/c -vancomycin is not weight based dosing. will follow vanco trough and adjust accordingly. -Podiatry consult appreciated, wound care as per podiatry team -MRI pending report #.Uncontrolled Diabetes -HGA1C: 13.0 -Insulin sliding protocol, received 10 units coverage 03/18, monitor BG and coverage scale. will likely need insulin -hypoglycemic protocol -Diabetic diet, diabetes education. -Metformin 1000 mg BID. d/c glipizide 5mg, start glipizide 10mg #. HTN -controlled -lisinopril 10 mg po daily #. HLD -ASCVD risk: 11.7% Lipid Panel: T, Total Chol: 141, LDL: 74, HDL : 25 -Atorvastatin 20 mg po daily resumed #. DVT prophylaxis Lovenox 40 mg sc daily <Luz Maria Zapata - Last Filed: 03/19/17 12:41> Objective - Vital Signs/Intake and Output Vital Signs (last 24 hours): Temp Pulse Resp BP Pulse Ox 98.6 F 65 18 123/78 98 03/19/17 12:00 03/19/17 12:00 03/19/17 12:00 03/19/17 12:00 03/19/17 12:00 - Medications Medications: Current Medications Atorvastatin Calcium (Lipitor) 20 mg PO HS [facility] Last Admin: 03/18/17 22:40 Dose: 20 mg Collagenase (Santyl) 1 applic TOP DAILY [facility] Last Admin: 03/19/17 09:19 Dose: 1 applic Dextrose (Dextrose 50% Inj) 0 ml IV STAT PRN; Protocol PRN Reason: Hyglycemia Protocol Dextrose (Glutose 15) 0 gm PO ONCE PRN; Protocol PRN Reason: Hypoglycemia Protocol Enoxaparin Sodium (Lovenox) 40 mg SC DAILY [facility] PRN Reason: Protocol Last Admin: 03/19/17 09:20 Dose: 40 mg Glipizide (Glucotrol) 10 mg PO ACB [facility] Last Admin: 03/19/17 09:18 Dose: 10 mg Glucagon (Glucagen Diagnostic Kit) 0 mg IM STAT PRN; Protocol PRN Reason: Hypoglycemia Protocol Vancomycin HCl 1 gm/ Sodium (Chloride) 250 mls @ 166.667 mls/hr IVPB Q12 [facility] Last Admin: 03/19/17 09:16 Dose: 166.667 mls/hr Insulin Human Lispro (Humalog) 0 units SC ACHS [facility] PRN Reason: Protocol Last Admin: 03/19/17 06:59 Dose: 3 units Lisinopril (Zestril) 10 mg PO DAILY [facility] Last Admin: 03/19/17 09:19 Dose: 10 mg Metformin HCl (Glucophage) 1,000 mg PO BIDWM [facility] Last Admin: 03/19/17 09:19 Dose: 1,000 mg - Labs Labs: 03/18/17 04:25 03/18/17 04:25 PT 11.5 Seconds (9.8-13.1) 03/17/17 15:29 INR 1.1 (0.9-1.2) 03/17/17 15:29 APTT 31.4 Seconds (25.6-37.1) 03/17/17 15:29 - Skin Additional comments: ADDENDUM ATTENDING NOTE PATIENT SEEN AND EXAMINED. CASE DISCUSSED WITH RESIDENT. AGREE WIT FINDINGS AND PLAN
[2017-03-19] MEDS: Insulin Lispro (humaLOG) 100 Units/ml Inj SC SCH ×4 (06:59→21:46)
[2017-03-19] MEDS: Santyl Collagenase OINTMENT TOP SCH (09:19)
[2017-03-19] MEDS: Enoxaparin 40 mg Syringe SC SCH (09:20)
--- NOTE | 2017-03-19 10:56 | CP.PCM.PN ---
Subjective - Date & Time of Evaluation Date of Evaluation: 03/19/17 Time of Evaluation: 10:54 - Subjective Subjective: Podiatry- Dr. Washington 42 y/o male with PMHx of DM, HTN, and hypercholestrolemia seen at bedside for increased swelling and pain to his left foot with plantar ulceration at level of left fifth met head. Patient states that the pain from his left foot is decreased from yesterday and no longer radiating up the leg. Patient denies of any other pedal complains at this time. Patient denies of any recent F/N/V/C/SOB /CP today. Objective - Vital Signs/Intake and Output Vital Signs (last 24 hours): Temp Pulse Resp BP Pulse Ox 97.5 F L 64 18 142/84 97 03/19/17 07:50 03/19/17 09:19 03/19/17 07:50 03/19/17 09:19 03/19/17 07:50 - Medications Medications: Current Medications Atorvastatin Calcium (Lipitor) 20 mg PO HS [facility] Last Admin: 03/18/17 22:40 Dose: 20 mg Collagenase (Santyl) 1 applic TOP DAILY [facility] Last Admin: 03/19/17 09:19 Dose: 1 applic Dextrose (Dextrose 50% Inj) 0 ml IV STAT PRN; Protocol PRN Reason: Hyglycemia Protocol Dextrose (Glutose 15) 0 gm PO ONCE PRN; Protocol PRN Reason: Hypoglycemia Protocol Enoxaparin Sodium (Lovenox) 40 mg SC DAILY [facility] PRN Reason: Protocol Last Admin: 03/19/17 09:20 Dose: 40 mg Glipizide (Glucotrol) 10 mg PO ACB [facility] Last Admin: 03/19/17 09:18 Dose: 10 mg Glucagon (Glucagen Diagnostic Kit) 0 mg IM STAT PRN; Protocol PRN Reason: Hypoglycemia Protocol Vancomycin HCl 1 gm/ Sodium (Chloride) 250 mls @ 166.667 mls/hr IVPB Q12 [facility] Last Admin: 03/19/17 09:16 Dose: 166.667 mls/hr Insulin Human Lispro (Humalog) 0 units SC ACHS [facility] PRN Reason: Protocol Last Admin: 03/19/17 06:59 Dose: 3 units Lisinopril (Zestril) 10 mg PO DAILY [facility] Last Admin: 03/19/17 09:19 Dose: 10 mg Metformin HCl (Glucophage) 1,000 mg PO BIDWM [facility] Last Admin: 03/19/17 09:19 Dose: 1,000 mg - Labs Labs: 03/18/17 04:25 03/18/17 04:25 PT 11.5 Seconds (9.8-13.1) 03/17/17 15:29 INR 1.1 (0.9-1.2) 03/17/17 15:29 APTT 31.4 Seconds (25.6-37.1) 03/17/17 15:29 - Constitutional Appears: Well, Non-toxic, No Acute Distress - Extremities Exam Additional comments: Bilateral LE exam VASC: DP/PT pulses are palpable 2/4 b/l no bounding pulses noted, 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 open wound 2). Cellulitis 3). 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 Washington Labs and vitals reviewed Wound site cleaned using saline and dressed using santyl, DSD Wound cx: Staph aureus X-rays taken/reviewed -diffuse radiodensity with radiolucency with mirtha fragmentation noted at the level of the midfoot possibly concerning charcot changes Patient to remain on strict non-weight bearing to left lower extremity while in the hospital Patient advised of importance to remaining nonweight bearing MRI ordered to determine OM vs Charcot- read pending Podiatry will continue to follow while patient in house
--- NOTE | 2017-03-19 15:40 | MRI ---
PROCEDURE: MRI of the left foot without contrast HISTORY: r/o osteomyelitis vs. charcot changes COMPARISON: Comparison is made to the previous x-ray of the left foot dated 03/13/2017 TECHNIQUE: Axial coronal and sagittal MRI images of the left foot were obtained without IV contrast administration. FINDINGS: There is abnormal in hyperintense T2 and hypointense T1 bone marrow signal seen at the distal 5th metatarsal bone and proximal phalanx of the 5th toe. There are small foci of cortical erosion at these bones. Findings suspicious for osteomyelitis. There is large deformity at the proximal and base of the 1st metatarsal bone likely represent advanced arthritic/Charcot arthropathy. There are also foci of bone marrow edema at the distal portion of the calcaneus bone as well as in the tarsal bone mainly at the middle and lateral cuneiform bones also likely due to severe Charcot arthropathy. Advanced arthritic changes are also noted at the metatarsophalangeal joints. There is mild diffuse soft tissue edema. No evidence of abscess formation or discrete fluid collection this noncontrast study. There are arthritic changes and deformity also seen at the 2nd metatarsophalangeal joint. IMPRESSION: Findings suspicious for osteomyelitis involving the distal 5th metatarsal bone and proximal phalanx of the 5th toe. Patchy bone marrow edema and arthritic changes at the tarsal and tarsometatarsal joints suggestive of advanced Charcot arthropathy Hyperintense bone marrow edema and deformity at the base and proximal 1st metatarsal bone also likely due to advanced Charcot arthropathy.
[2017-03-20] MEDS: Insulin Lispro (humaLOG) 100 Units/ml Inj SC SCH ×4 (06:43→21:46)
--- NOTE | 2017-03-20 08:25 | CP.PCM.PN ---
<Umu Perla - Last Filed: 03/20/17 12:39> Subjective - Date & Time of Evaluation Date of Evaluation: 03/20/17 Time of Evaluation: 07:30 - Subjective Subjective: No overnight events. Patient offered no complaints. Would like to go home but amenable to staying if needed for treatment. Patients wound wrapped, not visualized. He is currently being treated with vancomycin for staph aureus, day#3. FSG remains elevated, will start insulin today. For PICC line today. Denies headaches, chest pain, dyspnea, abdominal pain, nausea, vomiting, diarrhea, pedal edema or pain in left foot. Objective - Vital Signs/Intake and Output Vital Signs (last 24 hours): Temp Pulse Resp BP Pulse Ox 97.8 F 64 18 148/80 99 03/20/17 08:00 03/20/17 08:00 03/20/17 08:00 03/20/17 08:00 03/20/17 08:00 - Medications Medications: Current Medications Atorvastatin Calcium (Lipitor) 20 mg PO HS [facility] Last Admin: 03/19/17 21:45 Dose: 20 mg Collagenase (Santyl) 1 applic TOP DAILY [facility] Last Admin: 03/19/17 09:19 Dose: 1 applic Dextrose (Dextrose 50% Inj) 0 ml IV STAT PRN; Protocol PRN Reason: Hyglycemia Protocol Dextrose (Glutose 15) 0 gm PO ONCE PRN; Protocol PRN Reason: Hypoglycemia Protocol Enoxaparin Sodium (Lovenox) 40 mg SC DAILY [facility] PRN Reason: Protocol Last Admin: 03/19/17 09:20 Dose: 40 mg Glipizide (Glucotrol) 10 mg PO BIDAC [facility] Last Admin: 03/19/17 16:53 Dose: 10 mg Glucagon (Glucagen Diagnostic Kit) 0 mg IM STAT PRN; Protocol PRN Reason: Hypoglycemia Protocol Vancomycin HCl 1,500 mg/ (Sodium Chloride) 500 mls @ 250 mls/hr IVPB Q8H [facility] Insulin Human Lispro (Humalog) 0 units SC ACHS [facility] PRN Reason: Protocol Last Admin: 03/20/17 06:43 Dose: 3 units Lisinopril (Zestril) 10 mg PO DAILY [facility] Last Admin: 03/19/17 09:19 Dose: 10 mg Metformin HCl (Glucophage) 1,000 mg PO BIDWM [facility] Last Admin: 03/19/17 16:54 Dose: 1,000 mg - Labs Labs: 03/18/17 04:25 03/18/17 04:25 PT 11.5 Seconds (9.8-13.1) 03/17/17 15:29 INR 1.1 (0.9-1.2) 03/17/17 15:29 APTT 31.4 Seconds (25.6-37.1) 03/17/17 15:29 - Constitutional Appears: Well, Non-toxic, No Acute Distress - Head Exam Head Exam: ATRAUMATIC, NORMAL INSPECTION, NORMOCEPHALIC - Eye Exam Eye Exam: EOMI, Normal appearance, PERRL - ENT Exam ENT Exam: Mucous Membranes Moist, Normal Exam - Respiratory Exam Respiratory Exam: NORMAL BREATHING PATTERN - Cardiovascular Exam Cardiovascular Exam: REGULAR RHYTHM, +S1, +S2 - GI/Abdominal Exam GI & Abdominal Exam: Soft, Normal Bowel Sounds. absent: Distended, Guarding, Tenderness - Extremities Exam Additional comments: left foot wrapped with kerlix, no malodor, wound not visualized. - Neurological Exam Neurological Exam: Alert, Awake, CN II-XII Intact, Oriented x3 - Psychiatric Exam Psychiatric exam: Normal Affect, Normal Mood - Skin Skin Exam: Dry, Intact, Normal Color Assessment and Plan - Assessment and Plan (Free Text) Assessment: 42 year old male with PMH of DM, HTN, HLD admitted for diabetic wound infection with open ulceration and cellulitis with +MRSA and hyperglycemia 2' to uncontrolled DM. MRI suspicious for OM, has advanced charcot arthopathy. Case discussed with Podiatry, will need to go to OR for 5th metatarsal head / proximal phalanx base resection. Will also need PICC line for extended antibiotic treatment. Day 3 of IV Vancomycin, dose increased today. Trough in AM. BG remains uncontrolled. Will start Insulin NPH 5 units QAM/QPM. Monitor blood sugar closely. If hypoglycemia occurs, can cut down dose of glipizide. Follow labs: CBC, BMP, Vanco trough in AM. Pending medical optimization for surgical clearance. #. Diabetic wound infection, open ulceration and cellulitis -PICC line ordered today. -cultures +staph aureus, sensitivities reviewed. -vancomycin IV Q12H, dose adjusted. recheck vanco trough, monitor renal function. -Podiatry consult appreciated: continue abx tx and for OR this week -MRI reviewed: Findings suspicious for osteomyelitis involving the distal 5th metatarsal bone and proximal phalanx of the 5th toe. Advanced charcot arthropathy. #.Uncontrolled Diabetes -HGA1C: 13.0 -start NPH insulin 5units qAM/qPM -continue Metformin 1000 mg BID. glipizide 10mg BID -Insulin sliding protocol -hypoglycemic protocol -Diabetic diet, diabetes education #. HTN -controlled with lisinopril 10 mg po daily #. HLD -ASCVD risk: 11.7% Lipid Panel: T, Total Chol: 141, LDL: 74, HDL : 25 -Atorvastatin 20 mg po daily #. DVT prophylaxis Lovenox 40 mg sc daily <Luz Maria Zapata - Last Filed: 03/22/17 08:57> Objective - Vital Signs/Intake and Output Vital Signs (last 24 hours): Temp Pulse Resp BP Pulse Ox 97.8 F 59 L 20 150/86 93 L 03/22/17 08:46 03/22/17 08:46 03/22/17 08:46 03/22/17 08:46 03/22/17 08:46 - Medications Medications: Current Medications Atorvastatin Calcium (Lipitor) 20 mg PO HS [facility] Last Admin: 03/21/17 22:31 Dose: 20 mg Collagenase (Santyl) 1 applic TOP DAILY [facility] Last Admin: 03/21/17 09:11 Dose: Not Given Dextrose (Dextrose 50% Inj) 0 ml IV STAT PRN; Protocol PRN Reason: Hyglycemia Protocol Dextrose (Glutose 15) 0 gm PO ONCE PRN; Protocol PRN Reason: Hypoglycemia Protocol Enoxaparin Sodium (Lovenox) 40 mg SC DAILY [facility] PRN Reason: Protocol Last Admin: 03/21/17 12:46 Dose: Not Given Glipizide (Glucotrol) 10 mg PO BIDAC [facility] Last Admin: 03/22/17 08:19 Dose: Not Given Glucagon (Glucagen Diagnostic Kit) 0 mg IM STAT PRN; Protocol PRN Reason: Hypoglycemia Protocol Vancomycin HCl 1,500 mg/ (Sodium Chloride) 500 mls @ 250 mls/hr IVPB Q8H [facility] Last Admin: 03/22/17 07:19 Dose: 250 mls/hr Cefazolin Sodium 2 gm/ Sodium (Chloride) 100 mls @ 100 mls/hr IVPB Q8 [facility] Last Admin: 03/22/17 01:50 Dose: 100 mls/hr Lactated Ringer's (Lactated Ringer's) 1,000 mls @ 125 mls/hr IV .Q8H [facility] Last Admin: 03/22/17 00:11 Dose: 125 mls/hr Insulin Human Lispro (Humalog) 0 units SC ACHS [facility] PRN Reason: Protocol Last Admin: 03/22/17 07:51 Dose: 4 units Insulin Human NPH (Humulin N) 7 units SC Q12 [facility] Last Admin: 03/21/17 22:28 Dose: 7 u Lisinopril (Zestril) 20 mg PO DAILY [facility] Metformin HCl (Glucophage) 1,000 mg PO BIDWM [facility] Last Admin: 03/22/17 08:19 Dose: Not Given - Labs Labs: 03/21/17 05:00 03/21/17 05:00 PT 11.6 Seconds (9.8-13.1) 03/21/17 05:00 INR 1.1 (0.9-1.2) 03/21/17 05:00 APTT 33.5 Seconds (25.6-37.1) 03/21/17 05:00 - Skin Additional comments: ADDENDUM ATTENDING NOTE PATIENT SEEN AND EXAMINED. CASE DISCUSSED WITH RESIDENT. AGREE WITH FINDINGS AND PLAN.
--- NOTE | 2017-03-20 08:53 | CP.PCM.PN ---
Subjective - Date & Time of Evaluation Date of Evaluation: 03/20/17 Time of Evaluation: 07:51 - Subjective Subjective: Podiatry- Dr. Irizarry 42 y/o male with PMHx of DM, HTN, and hypercholestrolemia seen at bedside for increased swelling and pain to his left foot with plantar ulceration at level of left fifth met head. Patient states that the pain from his left foot is minimal and the same as yesterday and no longer radiating up the leg. Patient denies of any other pedal complains at this time. Patient denies of any recent F /N/V/C/SOB/CP today. Objective - Vital Signs/Intake and Output Vital Signs (last 24 hours): Temp Pulse Resp BP Pulse Ox 97.8 F 64 18 148/80 99 03/20/17 08:00 03/20/17 08:00 03/20/17 08:00 03/20/17 08:00 03/20/17 08:00 - Medications Medications: Current Medications Atorvastatin Calcium (Lipitor) 20 mg PO HS [facility] Last Admin: 03/19/17 21:45 Dose: 20 mg Collagenase (Santyl) 1 applic TOP DAILY [facility] Last Admin: 03/19/17 09:19 Dose: 1 applic Dextrose (Dextrose 50% Inj) 0 ml IV STAT PRN; Protocol PRN Reason: Hyglycemia Protocol Dextrose (Glutose 15) 0 gm PO ONCE PRN; Protocol PRN Reason: Hypoglycemia Protocol Enoxaparin Sodium (Lovenox) 40 mg SC DAILY [facility] PRN Reason: Protocol Last Admin: 03/19/17 09:20 Dose: 40 mg Glipizide (Glucotrol) 10 mg PO BIDAC [facility] Last Admin: 03/19/17 16:53 Dose: 10 mg Glucagon (Glucagen Diagnostic Kit) 0 mg IM STAT PRN; Protocol PRN Reason: Hypoglycemia Protocol Vancomycin HCl 1,500 mg/ (Sodium Chloride) 500 mls @ 250 mls/hr IVPB Q8H [facility] Insulin Human Lispro (Humalog) 0 units SC ACHS [facility] PRN Reason: Protocol Last Admin: 03/20/17 06:43 Dose: 3 units Lisinopril (Zestril) 10 mg PO DAILY [facility] Last Admin: 03/19/17 09:19 Dose: 10 mg Metformin HCl (Glucophage) 1,000 mg PO BIDWM [facility] Last Admin: 03/19/17 16:54 Dose: 1,000 mg - Labs Labs: 03/18/17 04:25 03/18/17 04:25 PT 11.5 Seconds (9.8-13.1) 03/17/17 15:29 INR 1.1 (0.9-1.2) 03/17/17 15:29 APTT 31.4 Seconds (25.6-37.1) 03/17/17 15:29 - Constitutional Appears: Well, Non-toxic, No Acute Distress - Extremities Exam Additional comments: Bilateral LE exam VASC: DP/PT pulses are palpable 2/4 b/l no bounding pulses noted, [employer]OR: < 3 sec to all digits, TG: warm to cool on right and warm to warm on left, non-pitting edema noted on the left foot DERM: Wound present measuring approximately 3.0 x 2.5 x 0.3 cm on the plantar lateral aspect submet head 5 on the left, wound base is approx. 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 open wound 2). Cellulitis 3). charcot changes to the left foot Plan: Patient seen and evaluated at bedside Charts, labs and vitals reviewed Plan discussed with attending Dr. Irizarry Ulcer dressed with betadine DSD MRI of foot (+) for OM of left fifth metatarsal head and proximal phalanx base as well as diffused chronic charcot changes to midfoot Patient scheduled to undergo left fifth metatarsal head resection, fifth proximal phalanx base resection and removal of all nonviable tissue/bone on Thursday 03/[address] Martínez ordered PICC line to be placed via [facility] Patient to start IV abx per ID rec Family [facility] to medically optimize patient and clear for surgery Podiatry will continue to follow while patient is in house
[2017-03-20] MEDS ORDERED: Vancomycin 500 mg Inj IVPB SCH (09:00)
[2017-03-20] MEDS: Santyl Collagenase OINTMENT TOP SCH (09:25)
[2017-03-20] MEDS: Enoxaparin 40 mg Syringe SC SCH (09:25)
[2017-03-20] MEDS ORDERED: Lidocaine 1% Inj (20ml) ONE (12:36)
--- NOTE | 2017-03-20 12:45 | PCM.SURG1 ---
Surgeon's Initial Post Op Note - Surgeon's Notes Surgeon: Edson Buitrago MD Emr Implementation Specialist: NONE Type of Anesthesia: Local Pre-Operative Diagnosis: Poor venous access Operative Findings: US showed patent right basilic vein Post-Operative Diagnosis: Poor venous access Operation Performed: Single lumen picc placement right basilic vein, 39 cm. Tip in the SVC. Specimen/Specimens Removed: none Estimated Blood Loss: EBL {In ML}: 2 Blood Products Given: N/A Drains Used: No Drains Post-Op Condition: Fair Date of Surgery/Procedure: 03/20/17 Time of Surgery/Procedure: 12:40
--- NOTE | 2017-03-20 13:26 | CP.PCM.CON ---
History of Present Illness - History of Present Illness History of Present Illness: 42 y/o male with PMHx of DM, HTN, and hypercholestrolemia seen at bedside for increased swelling and pain to his left foot with plantar ulceration at level of left fifth met head. Review of Systems - Constitutional Constitutional: As Per HPI - EENT Eyes: absent: As Per HPI, Blind Spots, Blurred Vision, Change in Vision, Decreased Night Vision, Diplopia, Discharge, Dry Eye, Exophthalmos, Floaters, Irritation, Itchy Eyes, Loss of Peripheral Vision, Pain, Photophobia, Requires Corrective Lenses, Sees Flashes, Spots in Vision, Tunnel Vision, Other Visual Disturbances, Loss of Vision, Other Ears: absent: As Per HPI, Decreased Hearing, Ear Discharge, Ear Pain, Tinnitus, Abnormal Hearing, Disequilibrium, Dizziness, Other Nose/Mouth/Throat: absent: As Per HPI, Epistaxis, Nasal Congestion, Nasal Discharge, Nasal Obstruction, Nasal Trauma, Nose Pain, Post Nasal Drip, Sinus Pain, Sinus Pressure, Bleeding Gums, Change in Voice, Dental Pain, Dry Mouth, Dysphagia, Halitosis, Hoarsness, Lip Swelling, Mouth Lesions, Mouth Pain, Odynophagia, Sore Throat, Throat Swelling, Tongue Swelling, Facial Pain, Neck Pain, Neck Mass, Other - Cardiovascular Cardiovascular: absent: As Per HPI, Acrocyanosis, Chest Pain, Chest Pain at Rest , Chest Pain with Activity, Claudication, Diaphoresis, Dyspnea, Dyspnea on Exertion, Edema, Irregular Heart Rhythm, Pain Radiating to Arm/Neck/Jaw, Leg Edema, Leg Ulcers, Lightheadedness, Orthopnea, Palpitations, Paroxysmal Nocturnal Dyspnea, Pedal Edema, Radiating Pain, Rapid Heart Rate, Slow Heart Rate, Syncope, Other - Respiratory Respiratory: absent: As Per HPI, Cough, Dyspnea, Hemoptysis, Dyspnea on Exertion , Wheezing, Snoring, Stridor, Pain on Inspiration, Chest Congestion, Excessive Mucous Production, Change in Mucous Color, Pain with Coughing, Other - Gastrointestinal Gastrointestinal: absent: As Per HPI, Abdominal Pain, Belching, Bloating, Change in Bowel Habits, Change in Stool Character, Coffee Ground Emesis, Constipation, Cramping, Diarrhea, Dyspepsia, Dysphagia, Early Satiety, Excessive Flatus, Fecal Incontinence, Heartburn, Hematemesis, Hematochezia, Loose Stools, Melena, Nausea, Odynophagia, Temesmus, Vomiting, Other - Genitourinary Genitourinary: absent: As Per HPI, Change in Urinary Stream, Difficulty Urinating, Dysuria, Flank Pain, Hematuria, Pyuria, Nocturia, Urinary Incontinence, Urinary Frequency, Urinary Hesitance, Urinary Urgency, Voiding Freq/Small Amts, Freq UTI, Hx Renal/Bladder Calculi, Hx /Renal Surgery, Bladder Distension, Other - Musculoskeletal Musculoskeletal: absent: As Per HPI, Abnormal Gait, Arthralgias, Atrophy, Back Pain, Deformity, Joint Swelling, Limited Range of Motion, Loss of Height, Muscle Cramps, Muscle Weakness, Myalgias, Neck Pain, Numbness, Radiating Pain into Limb, Stiffness, Tingling, Other - Integumentary Integumentary: As Per HPI, Skin Pain, Wounds - Neurological Neurological: absent: As Per HPI, Abnormal Gait, Abnormal Hearing, Abnormal Movements, Abnormal Speech, Behavioral Changes, Burning Sensations, Confusion, Convulsions, Disequilibrium, Dizziness, Numbness, Focal Weakness, Frequent Falls , Headaches, Lack of Coordination, Loss of Vision, Memory Loss, Paresthesias, Radicular Pain, Restless Legs, Sensory Deficit, Syncope, Tingling, Tremor, Vertigo, Weakness, Other Visual Disturbances, Other - Psychiatric Psychiatric: absent: As Per HPI, Abnormal Sleep Pattern, Anhedonia, Anxiety, Auditory Hallucinations, Behavioral Changes, Change in Appetite, Change in Libido, Confusion, Depression, Difficulty Concentrating, Hallucinations, Homicidal Ideation, Hopelessness, Irritability, Memory Loss, Mood Swings, Panic Attacks, Paranoia, Suicidal Ideation, Visual Hallucinations, Tactile Hallucinations, Other - Endocrine Endocrine: absent: As Per HPI, Change in Body Appearance, Change in Libido, Cold Intolorance, Deepening of Voice, Excessive Sweating, Fatigue, Flushing, Heat Intolorance, Increase in Ring/Shoe/Hat Size, Palpitations, Polydipsia, Polyphagia, Polyuria, Other Past Patient History - Infectious Disease Hx of Infectious Diseases: None - Tetanus Immunizations Tetanus Immunization: Unknown - Past Medical History & Family History Past Medical History?: Yes - Past Social History Alcohol: None Drugs: Denies - CARDIAC Hx Congestive Heart Failure: No Hx Hypercholesterolemia: Yes Hx Hypertension: Yes - PULMONARY Hx Chronic Obstructive Pulmonary Disease (COPD): No - NEUROLOGICAL Hx Seizures: No - HEENT Hx HEENT Problems: No - RENAL Hx Chronic Kidney Disease: No - ENDOCRINE/METABOLIC Hx Hypothyroidism: No - HEMATOLOGICAL/ONCOLOGICAL Hx Human Immunodeficiency Virus (HIV): No - INTEGUMENTARY Hx Dermatological Problems: No Hx Cellulitis: Yes - MUSCULOSKELETAL/RHEUMATOLOGICAL Hx Arthritis: No Hx Rheumatoid Arthritis: No - GASTROINTESTINAL Hx Gastrointestinal Disorders: No - GENITOURINARY/GYNECOLOGICAL Hx Sexually Transmitted Disorders: No - PSYCHIATRIC Hx Psychophysiologic Disorder: No Hx Substance Use: No - SURGICAL HISTORY Hx Coronary Artery Bypass Graft: No - ANESTHESIA Hx Anesthesia: Yes Hx Anesthesia Reactions: No Hx Malignant Hyperthermia: No Meds Allergies/Adverse Reactions: Allergies Allergy/AdvReac Type Severity Reaction Status Date / Time No Known Allergies Allergy Verified 01/26/15 13:33 - Medications Medications: Current Medications Atorvastatin Calcium (Lipitor) 20 mg PO HS [facility] Last Admin: 03/19/17 21:45 Dose: 20 mg Collagenase (Santyl) 1 applic TOP DAILY [facility] [place] Last Admin: 03/20/17 09:25 Dose: 1 applic Dextrose (Dextrose 50% Inj) 0 ml IV STAT PRN; Protocol PRN Reason: Hyglycemia Protocol Dextrose (Glutose 15) 0 gm PO ONCE PRN; Protocol PRN Reason: Hypoglycemia Protocol Enoxaparin Sodium (Lovenox) 40 mg SC DAILY [facility] PRN Reason: Protocol Last Admin: 03/20/17 09:25 Dose: 40 mg Glipizide (Glucotrol) 10 mg PO BIDAC [facility] [place] Last Admin: 03/20/17 09:23 Dose: 10 mg Glucagon (Glucagen Diagnostic Kit) 0 mg IM STAT PRN; Protocol PRN Reason: Hypoglycemia Protocol Vancomycin HCl 1,500 mg/ (Sodium Chloride) 500 mls @ 250 mls/hr IVPB Q8H [facility] [place] Last Admin: 03/20/17 09:22 Dose: 250 mls/hr Insulin Human Lispro (Humalog) 0 units SC ACHS [facility] PRN Reason: Protocol Last Admin: 03/20/17 06:43 Dose: 3 units Insulin Human NPH (Humulin N) 5 units SC Q12 [facility] Lisinopril (Zestril) 10 mg PO DAILY [facility] [place] Last Admin: 03/20/17 09:23 Dose: 10 mg Metformin HCl (Glucophage) 1,000 mg PO BIDWM [facility] [place] Last Admin: 03/20/17 09:24 Dose: 1,000 mg Physical Exam - Constitutional Appears: Non-toxic - Head Exam Head Exam: ATRAUMATIC, NORMOCEPHALIC - Eye Exam Eye Exam: PERRL - ENT Exam ENT Exam: Mucous Membranes Dry, Normal External Ear Exam - Neck Exam Neck exam: Negative for: Lymphadenopathy - Respiratory Exam Respiratory Exam: Decreased Breath Sounds, Rhonchi - Cardiovascular Exam Cardiovascular Exam: REGULAR RHYTHM, +S1, +S2 - GI/Abdominal Exam GI & Abdominal Exam: Diminished Bowel Sounds, Soft. absent: Tenderness - Rectal Exam Rectal Exam: Deferred - Exam Exam: NORMAL INSPECTION - Extremities Exam Extremities exam: Negative for: calf tenderness Additional comments: Bilateral LE exam VASC: DP/PT pulses are palpable 2/4 b/l no bounding pulses noted, ACCESS NURSE: < 3 sec to all digits, TG: warm to cool on right and warm to warm on left, non-pitting edema noted on the left foot DERM: Wound present measuring approximately 3.0 x 2.5 x 0.3 cm on the plantar lateral aspect submet head 5 on the left, wound base is approx. 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, rigit contracture of the digits noted on the right - Back Exam Back exam: absent: CVA tenderness (L), CVA tenderness (R) - Neurological Exam Neurological exam: Alert, CN II-XII Intact, Oriented x3, Reflexes Normal - Psychiatric Exam Psychiatric exam: Normal Mood - Skin Skin Exam: Dry, Intact Results - Vital Signs Recent Vital Signs: Last Vital Signs Temp 97.8 F 03/20/17 12:48 Pulse 80 03/20/17 12:48 Resp 18 03/20/17 12:48 BP 178/88 H 03/20/17 12:48 Pulse Ox 99 03/20/17 12:48 - Labs Result Diagrams: 03/18/17 04:25 03/18/17 04:25 Labs: Laboratory Results - last 24 hr 03/19/17 03/19/1717 16:36 19:50 21:16 POC Glucose (mg/dL) 195 H 263 H Vancomycin Trough < 5.0 L 03/20/17 05:37 POC Glucose (mg/dL) 236 H Vancomycin Trough Assessment & Plan (1) Cellulitis of foot Status: Acute (2) Diabetic foot ulcer Status: Acute (3) Uncontrolled diabetes mellitus Status: Acute (4) Cellulitis Status: Acute Priority: High Onset Date: 04/24/14 (5) Diabetes Status: Acute Priority: Low - Assessment and Plan (Free Text) Assessment: 42 y/o male seen at bedside in ED for an 1). open wound 2). Cellulitis 3). charcot changes to the left foot MRI of foot (+) for OM of left fifth metatarsal head and proximal phalanx base as well as diffused chronic charcot changes to midfoot Patient scheduled to undergo left fifth metatarsal head resection, fifth proximal phalanx base resection and removal of all nonviable tissue/bone on Thursday 03/22 await OR cultures cont iv antibiotics
--- NOTE | 2017-03-20 14:58 | RAD ---
HISTORY: preop COMPARISON: Comparison chest dated 03/17/2017 TECHNIQUE: Chest PA and lateral FINDINGS: LUNGS: Previously noted crowded bronchovascular markings on due to poor inspiration low lung volumes improved. No focal consolidation. There may be some minor linear atelectasis and or scarring left CP angle region. PLEURA: No significant pleural effusion identified. No pneumothorax apparent. CARDIOVASCULAR: Normal. OSSEOUS STRUCTURES: No significant abnormalities. VISUALIZED UPPER ABDOMEN: Normal. OTHER FINDINGS: None. IMPRESSION: Previously noted crowded bronchovascular markings on due to poor inspiration low lung volumes improved. No focal consolidation. There may be some minor linear atelectasis and or scarring left CP angle region.
[2017-03-20] MEDS: ceFAZolin 2 GM in Sodium Chloride 0.9% 100 ML IVPB SCH (17:25)
[2017-03-20] MEDS ORDERED: Insulin NPH Human 100 Units/ml Inj SC SCH (21:00)
[2017-03-21] MEDS: ceFAZolin 2 GM in Sodium Chloride 0.9% 100 ML IVPB SCH ×3 (01:55→17:00)
--- NOTE | 2017-03-21 06:39 | CP.PCM.PN ---
Subjective - Date & Time of Evaluation Date of Evaluation: 03/21/17 Time of Evaluation: 07:05 - Subjective Subjective: No acute events overnight. Patient denies any pain of of his left foot or sacral area. Lying in bed sleeping comfortably. PICC line in right arm, clean dry and intact dressing. Left foot wrapped in dressing that is clean dry, no malodor. Remains hyperglyemic, increase NPH insulin. Patient denies any fever, chills, chest pain, cough, abdominal pain, nausea, vomiting, diarrhea, pedal edema. Patient scheduled for OR on 03/22. He is medically optimized for surgical procedure. NPO after midnight. Lovenox held. Objective - Vital Signs/Intake and Output Vital Signs (last 24 hours): Temp Pulse Resp BP Pulse Ox 97.6 F 58 L 18 149/79 97 03/21/17 04:52 03/21/17 04:52 03/21/17 04:52 03/21/17 04:52 03/21/17 04:52 - Medications Medications: Current Medications Atorvastatin Calcium (Lipitor) 20 mg PO HS [facility] Last Admin: 03/20/17 21:47 Dose: 20 mg Collagenase (Santyl) 1 applic TOP DAILY [facility] Last Admin: 03/20/17 09:25 Dose: 1 applic Dextrose (Dextrose 50% Inj) 0 ml IV STAT PRN; Protocol PRN Reason: Hyglycemia Protocol Dextrose (Glutose 15) 0 gm PO ONCE PRN; Protocol PRN Reason: Hypoglycemia Protocol Enoxaparin Sodium (Lovenox) 40 mg SC DAILY [facility] PRN Reason: Protocol Last Admin: 03/20/17 09:25 Dose: 40 mg Glipizide (Glucotrol) 10 mg PO BIDAC [facility] Last Admin: 03/20/17 17:26 Dose: 10 mg Glucagon (Glucagen Diagnostic Kit) 0 mg IM STAT PRN; Protocol PRN Reason: Hypoglycemia Protocol Vancomycin HCl 1,500 mg/ (Sodium Chloride) 500 mls @ 250 mls/hr IVPB Q8H [facility] Last Admin: 03/20/17 22:00 Dose: 250 mls/hr Cefazolin Sodium 2 gm/ Sodium (Chloride) 100 mls @ 100 mls/hr IVPB Q8 [facility] Last Admin: 03/21/17 01:55 Dose: 100 mls/hr Insulin Human Lispro (Humalog) 0 units SC ACHS [facility] PRN Reason: Protocol Last Admin: 03/20/17 21:46 Dose: Not Given Insulin Human NPH (Humulin N) 5 units SC Q12 [facility] Last Admin: 03/20/17 21:44 Dose: 5 units Lisinopril (Zestril) 10 mg PO DAILY [facility] Last Admin: 03/20/17 09:23 Dose: 10 mg Metformin HCl (Glucophage) 1,000 mg PO BIDWM [facility] Last Admin: 03/20/17 17:26 Dose: 1,000 mg - Labs Labs: 03/18/17 04:25 03/18/17 04:25 PT 11.5 Seconds (9.8-13.1) 03/17/17 15:29 INR 1.1 (0.9-1.2) 03/17/17 15: APTT 31.4 Seconds (25.6-37.1) 03/17/17 15:29 - Constitutional Appears: Well - Head Exam Head Exam: ATRAUMATIC, NORMAL INSPECTION, NORMOCEPHALIC - Eye Exam Eye Exam: EOMI, Normal appearance, PERRL - ENT Exam ENT Exam: Mucous Membranes Moist, Normal Exam - Respiratory Exam Respiratory Exam: Clear to Ausculation Bilateral, NORMAL BREATHING PATTERN - Cardiovascular Exam Cardiovascular Exam: REGULAR RHYTHM, +S1, +S2 - GI/Abdominal Exam GI & Abdominal Exam: Soft, Normal Bowel Sounds. absent: Distended, Guarding, Tenderness - Extremities Exam Extremities Exam: absent: Pedal Edema Additional comments: lateral left foot ulceration: 3x2 no purulence, erythema, malodor noted. dressing clean dry and intact - Neurological Exam Neurological Exam: Alert, Awake, CN II-XII Intact, Oriented x3 - Psychiatric Exam Psychiatric exam: Normal Affect, Normal Mood - Skin Skin Exam: Dry, Normal Color, Warm Assessment and Plan - Assessment and Plan (Free Text) Assessment: 42 year old male with PMH of DM, HTN, HLD admitted for diabetic wound infection with open ulceration and cellulitis with +staph aureus and hyperglycemia 2' to uncontrolled DM. MRI suspicious for OM, has advanced charcot arthopathy. Patient is s/p PICC line on 03/20/17. He is scheduled for OR for 5th metatarsal head / proximal phalanx base resection on 03/22. Day 4 of IV Vancomycin, repeat trough remains low, follow next trough in PM and adjust dosing accordingly. Day 2 on Ancef. BG remains uncontrolled. Increase Insulin NPH to 7 units Q12, monitor and adjust accordingly. If hypoglycemia occurs, can cut down dose of glipizide. Medically optimized for surgical procedure. #. Diabetic wound infection, open ulceration and cellulitis -cultures +staph aureus, sensitivities reviewed, antibiotics as above -MRI reviewed: Findings suspicious for osteomyelitis involving the distal 5th metatarsal bone and proximal phalanx of the 5th toe. Advanced charcot arthropathy. ID : Dr. Martínez Podiatry: Dr. Irizarry #.Uncontrolled Diabetes -HGA1C: 13.0 -start NPH insulin 7 units this AM, continue q12 -continue Metformin 1000 mg BID. glipizide 10mg BID -Insulin sliding protocol -hypoglycemic protocol -Diabetic diet, diabetes education #. HTN -BP increased yesterday during PICC line placement. -if remains elevated can increase lisinopril or add HCTZ -controlled with lisinopril 10 mg po daily #. HLD -ASCVD risk: 11.7% Lipid Panel: T, Total Chol: 141, LDL: 74, HDL : 25 -Atorvastatin 20 mg po daily #. DVT prophylaxis Lovenox 40 mg sc daily
[2017-03-21 06:57] LABS: HEMATOCRIT 42.6 % (35.0-51.0); MEAN CELL VOLUME 82.9 fl (80.0-94.0); MEAN CORPUSCULAR HGB CONC 33.8 g/dL (33.0-37.0); RED CELL DISTRIBUTION WIDTH 13.8 % (11.5-14.5); WHITE BLOOD COUNT 6.2 K/uL (4.8-10.8)
[2017-03-21 07:02] LABS: BLOOD UREA NITROGEN 9 mg/dl (9-20); CALCIUM 9.3 mg/dL (8.4-10.2); CARBON DIOXIDE 28 mmol/L (22-30); CHLORIDE 101 mmol/L (98-107); GFR AFRICAN-AMERICAN > 60; GLUCOSE,RANDOM 216 mg/dL (75-110); POTASSIUM 3.8 MMOL/L (3.6-5.0); SODIUM 139 mmol/l (132-148)
[2017-03-21 07:31] LABS: PARTIAL THROMBOPLASTIN TIME 33.5 Seconds (25.6-37.1)
--- NOTE | 2017-03-21 08:03 | CP.PCM.PN ---
Subjective - Date & Time of Evaluation Date of Evaluation: 03/21/17 Time of Evaluation: 08:00 - Subjective Subjective: Podiatry- Dr. Irizarry 42 y/o male with PMHx of DM, HTN, and hypercholestrolemia seen at bedside for increased swelling and pain to his left foot with plantar ulceration at level of left fifth met head. Patient states that the pain from his left foot is minimal and the same as yesterday and no longer radiating up the leg. He also states that he feels as thought the redness of his foot has decreased since yesterday. He says that the PICC line placement that occurred yesterday went well. Patient denies of any other pedal complains at this time. Patient denies of any recent F/N/V/C/SOB/CP today. Objective - Vital Signs/Intake and Output Vital Signs (last 24 hours): Temp Pulse Resp BP Pulse Ox 97.6 F 58 L 18 149/79 97 03/21/17 04:52 03/21/17 04:52 03/21/17 04:52 03/21/17 04:52 03/21/17 04:52 - Medications Medications: Current Medications Atorvastatin Calcium (Lipitor) 20 mg PO HS [facility] Last Admin: 03/20/17 21:47 Dose: 20 mg Collagenase (Santyl) 1 applic TOP DAILY [facility] Last Admin: 03/20/17 09:25 Dose: 1 applic Dextrose (Dextrose 50% Inj) 0 ml IV STAT PRN; Protocol PRN Reason: Hyglycemia Protocol Dextrose (Glutose 15) 0 gm PO ONCE PRN; Protocol PRN Reason: Hypoglycemia Protocol Enoxaparin Sodium (Lovenox) 40 mg SC DAILY [facility] PRN Reason: Protocol Last Admin: 03/20/17 09:25 Dose: 40 mg Glipizide (Glucotrol) 10 mg PO BIDAC [facility] Last Admin: 03/20/17 17:26 Dose: 10 mg Glucagon (Glucagen Diagnostic Kit) 0 mg IM STAT PRN; Protocol PRN Reason: Hypoglycemia Protocol Vancomycin HCl 1,500 mg/ (Sodium Chloride) 500 mls @ 250 mls/hr IVPB Q8H [facility] Last Admin: 03/20/17 22:00 Dose: 250 mls/hr Cefazolin Sodium 2 gm/ Sodium (Chloride) 100 mls @ 100 mls/hr IVPB Q8 [facility] Last Admin: 03/21/17 01:55 Dose: 100 mls/hr Insulin Human Lispro (Humalog) 0 units SC ACHS [facility] PRN Reason: Protocol Last Admin: 03/20/17 21:46 Dose: Not Given Insulin Human NPH (Humulin N) 7 units SC Q12 [facility] Lisinopril (Zestril) 10 mg PO DAILY [facility] Last Admin: 03/20/17 09:23 Dose: 10 mg Metformin HCl (Glucophage) 1,000 mg PO BIDWM [facility] Last Admin: 03/20/17 17:26 Dose: 1,000 mg - Labs Labs: 03/21/17 05:00 03/21/17 05:00 PT 11.6 Seconds (9.8-13.1) 03/21/17 05:00 INR 1.1 (0.9-1.2) 03/21/17 05:00 APTT 33.5 Seconds (25.6-37.1) 03/21/17 05:00 - Constitutional Appears: Well, Non-toxic, No Acute Distress - Extremities Exam Additional comments: Bilateral LE exam VASC: DP/PT pulses are palpable 2/4 b/l no bounding pulses noted, [employer]: < 3 sec to all digits, TG: warm to cool on right and warm to warm on left, non-pitting edema noted on the left foot DERM: Wound present measuring approximately 3.0 x 2.5 x 0.3 cm on the plantar lateral aspect submet head 5 on the left, wound base is approx. 70% granular and 30% fibrotic with haile-wound hyperkeratotic rim, minimal serous drainage noted from the wound bed, no foul odor, no probe to bone, no purulent drainage, no undermining, periwound erythema extending from lateral aspect of the left foot to the dorso-lateral aspect of the left foot decreased from yesterday NEURO: Protective sensation mildly diminished ORTHO: tenderness on palpation of the haile-wound area, 4th digit amputation on the left, rigit contracture of the digits noted on the right - Neurological Exam Neurological Exam: Alert, Awake, Oriented x3 - Psychiatric Exam Psychiatric exam: Normal Affect, Normal Mood Assessment and Plan - Assessment and Plan (Free Text) Assessment: 42 y/o male seen at bedside in ED for an 1). open wound 2). Cellulitis 3). charcot changes to the left foot Plan: Patient seen and evaluated at bedside Charts, labs and vitals reviewed Plan discussed with attending Dr. Irizarry Ulcer dressed with betadine DSD MRI of foot (+) for OM of left fifth metatarsal head and proximal phalanx base as well as diffused chronic charcot changes to midfoot Patient scheduled to undergo left fifth metatarsal head resection, fifth proximal phalanx base resection and removal of all nonviable tissue/bone on Thursday 03/22 PICC line placed yesterday; patient tolerated well Patient to start IV abx per ID rec Family med to medically optimize patient and clear for surgery Podiatry will continue to follow while patient is in house
[2017-03-21] MEDS: Insulin Lispro (humaLOG) 100 Units/ml Inj SC SCH ×4 (08:47→22:26)
[2017-03-21] MEDS: Insulin NPH Human 100 Units/ml Inj SC SCH ×2 (08:57→22:28)
[2017-03-21] MEDS: Santyl Collagenase OINTMENT TOP SCH (09:11)
[2017-03-21] MEDS: Enoxaparin 40 mg Syringe SC SCH (12:46)
[2017-03-22] MEDS: Lactated Ringer's 1,000 ML IV SCH ×3 (00:11→17:15)
[2017-03-22] MEDS: ceFAZolin 2 GM in Sodium Chloride 0.9% 100 ML IVPB SCH ×3 (01:50→17:14)
--- NOTE | 2017-03-22 07:20 | CP.PCM.PN ---
Subjective - Date & Time of Evaluation Date of Evaluation: 03/22/17 Time of Evaluation: 14:30 - Subjective Subjective: 42 y/o male seen at bedside prior to operative intervention for L foot OM of distal 5th metatarsal and proximal phalanx. Pt confirms NPO status past midnight last night. All questions answered to patient's satisfaction. Pt denies any F/C/N/V/SOB. Objective - Vital Signs/Intake and Output Vital Signs (last 24 hours): Temp Pulse Resp BP Pulse Ox 98 F 56 L 18 156/85 H 97 03/22/17 00:30 03/22/17 00:30 03/22/17 00:30 03/22/17 00:30 03/22/17 00:30 - Medications Medications: Current Medications Atorvastatin Calcium (Lipitor) 20 mg PO HS [facility] Last Admin: 03/21/17 22:31 Dose: 20 mg Collagenase (Santyl) 1 applic TOP DAILY [facility] Last Admin: 03/21/17 09:11 Dose: Not Given Dextrose (Dextrose 50% Inj) 0 ml IV STAT PRN; Protocol PRN Reason: Hyglycemia Protocol Dextrose (Glutose 15) 0 gm PO ONCE PRN; Protocol PRN Reason: Hypoglycemia Protocol Enoxaparin Sodium (Lovenox) 40 mg SC DAILY [facility] PRN Reason: Protocol Last Admin: 03/21/17 12:46 Dose: Not Given Glipizide (Glucotrol) 10 mg PO BIDAC [facility] Last Admin: 03/21/17 16:55 Dose: 10 mg Glucagon (Glucagen Diagnostic Kit) 0 mg IM STAT PRN; Protocol PRN Reason: Hypoglycemia Protocol Vancomycin HCl 1,500 mg/ (Sodium Chloride) 500 mls @ 250 mls/hr IVPB Q8H [facility] Last Admin: 03/21/17 23:01 Dose: 250 mls/hr Cefazolin Sodium 2 gm/ Sodium (Chloride) 100 mls @ 100 mls/hr IVPB Q8 [facility] Last Admin: 03/22/17 01:50 Dose: 100 mls/hr Lactated Ringer's (Lactated Ringer's) 1,000 mls @ 125 mls/hr IV .Q8H [facility] Last Admin: 03/22/17 00:11 Dose: 125 mls/hr Insulin Human Lispro (Humalog) 0 units SC ACHS [facility] PRN Reason: Protocol Last Admin: 03/21/17 22:26 Dose: Not Given Insulin Human NPH (Humulin N) 7 units SC Q12 [facility] Last Admin: 03/21/17 22:28 Dose: 7 u Lisinopril (Zestril) 20 mg PO DAILY [facility] Metformin HCl (Glucophage) 1,000 mg PO BIDWM [facility] Last Admin: 03/21/17 16:55 Dose: 1,000 mg - Labs Labs: 03/21/17 05:00 03/21/17 05:00 PT 11.6 Seconds (9.8-13.1) 03/21/17 05:00 INR 1.1 (0.9-1.2) 03/21/17 05:00 APTT 33.5 Seconds (25.6-37.1) 03/21/17 05:00 - Constitutional Appears: Well, Non-toxic, No Acute Distress - Extremities Exam Additional comments: Dressing to left foot clean, dry and intact - Neurological Exam Neurological Exam: Alert, Awake, Oriented x3 - Psychiatric Exam Psychiatric exam: Normal Affect, Normal Mood Assessment and Plan - Assessment and Plan (Free Text) Assessment: 42 y/o male seen at bedside for left foot 5th digit and metatarsal head osteomyelitis secondary to DM Plan: Pt seen and evaluated at bedside Pt to go to OR at 4pm for resection of 5th digit proximal phalanx and metatarsal head Pt confirms NPO status Pt's questions answered Pt will remain in house following surgery and podiatry will continue to follow
[2017-03-22] MEDS: Insulin Lispro (humaLOG) 100 Units/ml Inj SC SCH ×4 (07:51→21:35)
--- NOTE | 2017-03-22 09:23 | CP.PCM.PN ---
Subjective - Date & Time of Evaluation Date of Evaluation: 03/22/17 Time of Evaluation: 07:15 - Subjective Subjective: Patient was seen and examined in MedSurg floor today Patient alert, awake, and oriented X 3 patient feels well this morning, and denies chills, Cp, SOB, N/V, abdominal pain Pt is urinating w/o difficulty and having regular and nomrla BM Afebrile, still with slight elevated BP Objective - Vital Signs/Intake and Output Vital Signs (last 24 hours): Temp Pulse Resp BP Pulse Ox 97.8 F 59 L 20 150/86 93 L 03/22/17 08:46 03/22/17 08:46 03/22/17 08:46 03/22/17 08:46 03/22/17 08:46 - Medications Medications: Current Medications Atorvastatin Calcium (Lipitor) 20 mg PO HS [facility] Last Admin: 03/21/17 22:31 Dose: 20 mg Collagenase (Santyl) 1 applic TOP DAILY [facility] Last Admin: 03/21/17 09:11 Dose: Not Given Dextrose (Dextrose 50% Inj) 0 ml IV STAT PRN; Protocol PRN Reason: Hyglycemia Protocol Dextrose (Glutose 15) 0 gm PO ONCE PRN; Protocol PRN Reason: Hypoglycemia Protocol Enoxaparin Sodium (Lovenox) 40 mg SC DAILY [facility] PRN Reason: Protocol Last Admin: 03/21/17 12:46 Dose: Not Given Glipizide (Glucotrol) 10 mg PO BIDAC [facility] Last Admin: 03/22/17 08:19 Dose: Not Given Glucagon (Glucagen Diagnostic Kit) 0 mg IM STAT PRN; Protocol PRN Reason: Hypoglycemia Protocol Vancomycin HCl 1,500 mg/ (Sodium Chloride) 500 mls @ 250 mls/hr IVPB Q8H [facility] Last Admin: 03/22/17 07:19 Dose: 250 mls/hr Cefazolin Sodium 2 gm/ Sodium (Chloride) 100 mls @ 100 mls/hr IVPB Q8 [facility] Last Admin: 03/22/17 01:50 Dose: 100 mls/hr Lactated Ringer's (Lactated Ringer's) 1,000 mls @ 125 mls/hr IV .Q8H [facility] Last Admin: 03/22/17 00:11 Dose: 125 mls/hr Insulin Human Lispro (Humalog) 0 units SC ACHS [facility] PRN Reason: Protocol Last Admin: 03/22/17 07:51 Dose: 4 units Insulin Human NPH (Humulin N) 7 units SC Q12 [facility] Last Admin: 03/21/17 22:28 Dose: 7 u Lisinopril (Zestril) 20 mg PO DAILY [facility] Metformin HCl (Glucophage) 1,000 mg PO BIDWM [facility] Last Admin: 03/22/17 08:19 Dose: Not Given - Labs Labs: 03/21/17 05:00 03/21/17 05:00 PT 11.6 Seconds (9.8-13.1) 03/21/17 05:00 INR 1.1 (0.9-1.2) 03/21/17 05:00 APTT 33.5 Seconds (25.6-37.1) 03/21/17 05:00 - Constitutional Appears: No Acute Distress - ENT Exam ENT Exam: Mucous Membranes Moist - Respiratory Exam Respiratory Exam: Clear to Ausculation Bilateral, NORMAL BREATHING PATTERN - Cardiovascular Exam Cardiovascular Exam: REGULAR RHYTHM, +S1, +S2 - GI/Abdominal Exam GI & Abdominal Exam: Soft, Normal Bowel Sounds. absent: Tenderness - Extremities Exam Extremities Exam: Normal Inspection. absent: Calf Tenderness, Pedal Edema - Neurological Exam Neurological Exam: Alert, Awake, Oriented x3 - Skin Skin Exam: Dry, Intact, Normal Color Assessment and Plan - Assessment and Plan (Free Text) Assessment: 42 year old male with PMH of DM, HTN, HLD admitted for diabetic wound infection with open ulceration and cellulitis with +staph aureus and hyperglycemia 2' to uncontrolled DM. MRI suspicious for OM, has advanced charcot arthopathy. Plan: Diabetic wound infection, open ulceration and cellulitis s/p PICC line on 03/20/17 for alf IV abx Day 5 of IV Vancomycin, repeat trough on 03/21/17 was 14.1,c/w same abx dose Day 3 on Ancef NPO for OR today IV fluids while NPO OR for 5th metatarsal head / proximal phalanx base resection f/u ID, Dr. Martínez recommendations MRI suspicious for OM, has advanced charcot arthopathy. Uncontrolled Diabetes -HGA1C: 13.0 -c/w NPH insulin 7 units this AM, continue q12 -continue Metformin 1000 mg BID. glipizide 10mg BID -Insulin sliding protocol -hypoglycemic protocol -Diabetic diet, diabetes education HTN -BP still increased -if remains elevated can increase lisinopril or add HCTZ -Lisinopril increased to 20 mg daily f/u BP HLD -ASCVD risk: 11.7% Lipid Panel: T, Total Chol: 141, LDL: 74, HDL : 25 -Atorvastatin 20 mg po daily DVT prophylaxis Held Lovenox 40 mg sc due to OR today
[2017-03-22] MEDS: Santyl Collagenase OINTMENT TOP SCH (09:59)
--- NOTE | 2017-03-22 11:26 | VASCULAR ---
PROCEDURE: Date of procedure: 03/20/2017 Procedure: 1. Placement of a right arm PICC with ultrasound and fluoroscopic guidance, CPT 51403 2. PICC tip confirmation with spot radiograph and is in the superior vena cava Medications:3cc 1 percent lidocaine Total Fluoro time: 4 seconds Radiation: 2 mGy EBL: 2 cc HISTORY: Infection requiring long-term IV antibiotics TECHNIQUE: Following informed consent and procedure time-out, the patient was placed supine on the interventional table and the right arm prepped and draped in the usual sterile fashion. Ultrasound showed a patent and compressible right basilic vein. After the skin was anesthetized with lidocaine, the basilic vein was accessed with micro micropuncture technique using ultrasound guidance. A guidewire was then advanced under fluoroscopic guidance into the superior vena cava. An image documenting ultrasound guidance for vascular access was permanently saved. The length of the single-lumen 4 Kis[place]ili PICC was trimmed to 39 centimeters and advanced through a peel-away sheath. The PICC was position with tip of PICC confirm a spot radiograph the superior vena cava. The PICC was secured to the patient's skin. The PICC was flushed. A biopatch and sterile dressing was applied. IMPRESSION: Placement of a single-lumen 4 Kisw[place]ili PICC trimmed to 39 centimeters via right basilic vein. The tip of the PICC is confirmed with spot radiograph and is in the superior vena cava.
--- NOTE | 2017-03-22 11:54 | CP.PCM.PN ---
Subjective - Date & Time of Evaluation Date of Evaluation: 03/22/17 Time of Evaluation: 08:00 - Subjective Subjective: has large left 5th met ulcer- no pus left 4th toe amputation site noted decreaseed sensation iv rx renewed for or Objective - Vital Signs/Intake and Output Vital Signs (last 24 hours): Temp Pulse Resp BP Pulse Ox 97.8 F 59 L 20 150/86 93 L 03/22/17 08:46 03/22/17 08:46 03/22/17 08:46 03/22/17 08:46 03/22/17 08:46 - Medications Medications: Current Medications Atorvastatin Calcium (Lipitor) 20 mg PO HS [facility] Last Admin: 03/21/17 22:31 Dose: 20 mg Collagenase (Santyl) 1 applic TOP DAILY [facility] Last Admin: 03/22/17 09:59 Dose: Not Given Dextrose (Dextrose 50% Inj) 0 ml IV STAT PRN; Protocol PRN Reason: Hyglycemia Protocol Dextrose (Glutose 15) 0 gm PO ONCE PRN; Protocol PRN Reason: Hypoglycemia Protocol Enoxaparin Sodium (Lovenox) 40 mg SC DAILY [facility] PRN Reason: Protocol Last Admin: 03/21/17 12:46 Dose: Not Given Glipizide (Glucotrol) 10 mg PO BIDAC [facility] Last Admin: 03/22/17 08:19 Dose: Not Given Glucagon (Glucagen Diagnostic Kit) 0 mg IM STAT PRN; Protocol PRN Reason: Hypoglycemia Protocol Vancomycin HCl 1,500 mg/ (Sodium Chloride) 500 mls @ 250 mls/hr IVPB Q8H [facility] Last Admin: 03/22/17 07:19 Dose: 250 mls/hr Cefazolin Sodium 2 gm/ Sodium (Chloride) 100 mls @ 100 mls/hr IVPB Q8 [facility] Last Admin: 03/22/17 10:07 Dose: 100 mls/hr Lactated Ringer's (Lactated Ringer's) 1,000 mls @ 125 mls/hr IV .Q8H [facility] Last Admin: 03/22/17 10:08 Dose: 125 mls/hr Insulin Human Lispro (Humalog) 0 units SC ACHS [facility] PRN Reason: Protocol Last Admin: 03/22/17 07:51 Dose: 4 units Insulin Human NPH (Humulin N) 7 units SC Q12 [facility] Last Admin: 08/31/17 22:28 Dose: 7 u Lisinopril (Zestril) 20 mg PO DAILY [facility] Last Admin: 03/22/17 10:07 Dose: 20 mg Metformin HCl (Glucophage) 1,000 mg PO BIDWM [facility] Last Admin: 03/22/17 08:19 Dose: Not Given - Labs Labs: 03/21/17 05:00 03/21/17 05:00 PT 11.6 Seconds (9.8-13.1) 03/21/17 05:00 INR 1.1 (0.9-1.2) 03/21/17 05:00 APTT 33.5 Seconds (25.6-37.1) 03/21/17 05:00 Assessment and Plan (1) Cellulitis of foot Status: Acute (2) Diabetic foot ulcer Status: Acute (3) Uncontrolled diabetes mellitus Status: Acute (4) Cellulitis Status: Acute (5) Diabetes Status: Acute
[2017-03-22] MEDS ORDERED: Bupivacaine 0.5% Inj(30mL) IJ ONE (14:09)
[2017-03-22] MEDS ORDERED: Lidocaine 1% Inj (20ml) IJ ONE ×2 (14:09→16:41)
[2017-03-22] MEDS ORDERED: ceFAZolin 1 GM in Sodium Chloride 0.9% 100 ML IVPB ONE (14:09)
[2017-03-22] MEDS ORDERED: Sodium Chloride 0.9% 1,000 ML IV SCH ×2 (14:15→18:00)
[2017-03-22] MEDS ORDERED: Lidocaine 1% Inj (20ml) ONE (15:14)
[2017-03-22] MEDS ORDERED: Bupivacaine 0.5% Inj(30mL) ONE (15:15)
[2017-03-22] MEDS ORDERED: Midazolam 2 MG/2 ML VIAL ONE (16:22)
[2017-03-22] MEDS ORDERED: Propofol 10 mg/ml Inj (20 ML) ONE (16:22)
[2017-03-22] MEDS ORDERED: Sodium Chloride 0.9% 1,000 ML IV ONE (16:24)
[2017-03-22] MEDS ORDERED: Bupivacaine 0.5% 50 ML IJ ONE (16:41)
[2017-03-22] MEDS ORDERED: HYDROmorphone 0.5 mg/0.5 ml ISec IVP PRN (17:50)
--- NOTE | 2017-03-22 17:50 | PCM.SURG1 ---
Surgeon's Initial Post Op Note - Surgeon's Notes Surgeon: Dr. Christian Gilmore Insurance Account Specialist: Dr. Hannah PGY-1, Dr. Keith PGY-1, Dr. Cardenas PGY-2 Type of Anesthesia: IV Sedation, Local Anesthesia Administered By: Dr. Lucia Pre-Operative Diagnosis: left foot 5th digit proximal phalanx base and metatarsal head osteomyelitis Operative Findings: see operative report. I: 18cc 1:1 mix Lidocaine 1% plain and 0.5% Marcaine plain. M: 2-0 Vicryl, 4-0 Vicryl, 4-0 Prolene. Tourniquet time: 55 min Post-Operative Diagnosis: same Operation Performed: resection of 5th proximal phalangeal base and metatarsal head Specimen/Specimens Removed: left foot 5th metatarsal bone Estimated Blood Loss: EBL {In ML}: 5 Blood Products Given: N/A Drains Used: No Drains Post-Op Condition: Good Date of Surgery/Procedure: 03/22/17 Time of Surgery/Procedure: 16:45
[2017-03-22] MEDS ORDERED: Oxycodone/Acetaminophen 5/325 mg Tab PO PRN ×2 (17:52)
--- NOTE | 2017-03-22 18:52 | RAD ---
PROCEDURE: Left Foot Radiographs. HISTORY: s/p left foot surgery COMPARISON: 03/17/2017 FINDINGS: BONES: The patient is status post amputation of the distal aspect of the 5th metatarsal. There has been prior amputation of the distal aspect of the 4th and 3rd metatarsals. This is unchanged from prior examination. Postsurgical changes are seen in the soft tissues about the 5th digit with subcutaneous gas. There is extensive degenerative change noted about the 2nd metatarsal phalangeal articulation unchanged from prior. There is severe remodeling of the 1st CMC articulation with broadening of the base of the 1st metatarsal and apparent destructive change of the articular surface at the base of the 1st metatarsal suggestive of osteomyelitis. However, the medial cuneiform articular surface appears intact. JOINTS: As above SOFT TISSUES: As above OTHER FINDINGS: None. IMPRESSION: Interval surgical resection distal aspect 5th metatarsal. No other significant interval change. Additional findings as above.
--- NOTE | 2017-03-22 19:09 | CP.PCM.PN ---
Subjective - Date & Time of Evaluation Date of Evaluation: 03/22/17 Time of Evaluation: 18:30 - Subjective Subjective: Pt. with left foot osteomylitis seen s/p resection of 5th proximal phalangeal base and metatarsal head POD #0 in PACU. Pt. is AAOx3 in no distress. Pt. tolerated procedure well. Pt. states pain is well controlled. Pt. denies any fever, chills, nausea, vomiting, shortness of breath, or chest pain. Objective - Vital Signs/Intake and Output Vital Signs (last 24 hours): Temp Pulse Resp BP Pulse Ox 97.7 F 62 18 142/51 L 99 03/22/17 18:50 03/22/17 18:50 03/22/17 18:50 03/22/17 18:50 03/22/17 18:50 Intake and Output: 03/22/17 03/23/17 18:59 06:59 Intake Total 300 Balance 300 - Medications Medications: Current Medications Acetaminophen (Tylenol 325mg Tab) 650 mg PO Q4 PRN PRN Reason: Pain, Mild (1-3) Atorvastatin Calcium (Lipitor) 20 mg PO HS [facility] Last Admin: 03/21/17 22:31 Dose: 20 mg Collagenase (Santyl) 1 applic TOP DAILY [facility] Last Admin: 03/22/17 09:59 Dose: Not Given Dextrose (Dextrose 50% Inj) 0 ml IV STAT PRN; Protocol PRN Reason: Hyglycemia Protocol Dextrose (Glutose 15) 0 gm PO ONCE PRN; Protocol PRN Reason: Hypoglycemia Protocol Enoxaparin Sodium (Lovenox) 40 mg SC DAILY [facility] PRN Reason: Protocol Last Admin: 03/21/17 12:46 Dose: Not Given Glipizide (Glucotrol) 10 mg PO BIDAC [facility] Last Admin: 03/22/17 17:14 Dose: Not Given Glucagon (Glucagen Diagnostic Kit) 0 mg IM STAT PRN; Protocol PRN Reason: Hypoglycemia Protocol Hydromorphone HCl (Dilaudid) 0.5 mg IVP Q15M PRN PRN Reason: Pain, moderate (4-7) Vancomycin HCl 1,500 mg/ (Sodium Chloride) 500 mls @ 250 mls/hr IVPB Q8H [facility] Last Admin: 03/22/17 15:45 Dose: Not Given Cefazolin Sodium 2 gm/ Sodium (Chloride) 100 mls @ 100 mls/hr IVPB Q8 [facility] Last Admin: 03/22/17 17:14 Dose: Not Given Lactated Ringer's (Lactated Ringer's) 1,000 mls @ 125 mls/hr IV .Q8H [facility] Last Admin: 03/22/17 17:15 Dose: Not Given Sodium Chloride (Sodium Chloride 0.9%) 1,000 mls @ 1,000 mls/hr IV .Q1H [facility] Stop: 03/23/17 14:10 Sodium Chloride (Sodium Chloride 0.9%) 1,000 mls @ 100 mls/hr IV .Q10H [facility] Insulin Human Lispro (Humalog) 0 units SC ACHS [facility] PRN Reason: Protocol Last Admin: 03/22/17 17:15 Dose: Not Given Insulin Human NPH (Humulin N) 7 units SC Q12 [facility] Last Admin: 03/21/17 22:28 Dose: 7 u Lisinopril (Zestril) 20 mg PO DAILY [facility] Last Admin: 03/22/17 10:07 Dose: 20 mg Metformin HCl (Glucophage) 1,000 mg PO BIDWM [facility] Last Admin: 03/22/17 17:14 Dose: Not Given Oxycodone/Acetaminophen (Percocet 5/325 Mg Tab) 1 tab PO Q6 PRN PRN Reason: Pain, moderate (4-7) Stop: 03/25/17 17:53 Oxycodone/Acetaminophen (Percocet 5/325 Mg Tab) 2 tab PO Q6 PRN PRN Reason: Pain, severe (8-10) Stop: 03/25/17 17:53 - Labs Labs: 03/21/17 05:00 03/21/17 05:00 PT 11.6 Seconds (9.8-13.1) 03/21/17 05:00 INR 1.1 (0.9-1.2) 03/21/17 05:00 APTT 33.5 Seconds (25.6-37.1) 03/21/17 05:00 - Constitutional Appears: No Acute Distress - Eye Exam Eye Exam: Normal appearance. absent: Scleral icterus - ENT Exam ENT Exam: Mucous Membranes Moist - Neck Exam Neck Exam: Full ROM - Respiratory Exam Respiratory Exam: Clear to Ausculation Bilateral - Cardiovascular Exam Cardiovascular Exam: REGULAR RHYTHM, +S1, +S2 - GI/Abdominal Exam GI & Abdominal Exam: Soft, Tenderness - Extremities Exam Extremities Exam: Normal Capillary Refill, Normal Inspection Additional comments: Left foot dressing clean,dry, intact strength 5/5 full ROM Assessment and Plan - Assessment and Plan (Free Text) Assessment: 42 y.o. male s/p resection of 5th proximal phalangeal base and metatarsal head due to osteomyelitis. Continue current management. Will resume diet, lovenox and Insulin. PT evaluation.
[2017-03-22] MEDS: Insulin NPH Human 100 Units/ml Inj SC SCH (21:36)
[2017-03-22] MEDS ORDERED: Insulin NPH Human 100 Units/ml Inj SC SCH (22:00)
[2017-03-23] MEDS: ceFAZolin 2 GM in Sodium Chloride 0.9% 100 ML IVPB SCH ×3 (01:48→16:05)
[2017-03-23 06:04] LABS: HEMATOCRIT 38.8 % (35.0-51.0); MEAN CELL VOLUME 84.5 fl (80.0-94.0); MEAN CORPUSCULAR HEMOGLOBIN 27.2 pg (27.0-31.0); MEAN CORPUSCULAR HGB CONC 32.2 g/dL (33.0-37.0); RED CELL DISTRIBUTION WIDTH 13.5 % (11.5-14.5); WHITE BLOOD COUNT 7.1 K/uL (4.8-10.8)
--- NOTE | 2017-03-23 06:39 | OP ---
PROCEDURE DATE: 03/22/2017 PREOPERATIVE DIAGNOSIS: Left fifth digit proximal phalanx base and metatarsal head osteomyelitis. POSTOPERATIVE DIAGNOSIS: Left fifth digit proximal phalanx base and metatarsal head osteomyelitis. NAME OF PROCEDURE: Resection of the proximal phalanx base and metatarsal. SURGEON: Christian Toro DPM ASSISTANTS: 1. Jose C Hannah DPM, PGY1. 2. William Keith DPM, PGY1. 3. Dr. Cardenas, PGY2. TYPE OF ANESTHESIA: IV sedation with local. ANESTHESIA ADMINISTERED BY: Davis Lucia MD INDICATIONS: The patient is a 42-year-old male with the above diagnosis. The patient has exhausted all conservative treatment at this time and now request surgical intervention. The patient signed to consent. After careful explanation of risks, benefits, and complications and alternatives for these procedure. No guarantees were given nor implied. N.p.o. status was confirmed prior to placing the patient to the OR. DESCRIPTION OF PROCEDURE: The patient was brought into the operating room and placed on to a operating room table in a supine position. A time-out was performed for identification of the correct patient and procedure. The patient received a total of 18 mL of 1:1 mixture of 1% lidocaine plain and 0.5% Marcaine plain in the local block fashion to left portion. Next, tourniquet was applied to the left ankle and was started 250 mmHg pressure. Local anesthesia was achieved of the left foot and was then prepared and draped in normal sterile manner and the procedure begun. Esmarch was used to exsanguinate and tourniquet was inflated. Attention was driven to the patient's left foot with the using a #15-blade a linear incision was made just lateral to the fifth metatarsal head and distal shaft and shaved down to the bone. Care was taken to avoid any neurovascular structure. Next, utilizing the Berclair elevator all periosteum tissue was carefully resected off the fifth metatarsal head. At this time, utilizing a sagittal saw, the fifth metatarsal head was resected. All devitalized tissue and bone were then passed from the operative site. Base of the proximal phalanx at the fifth digit was also resected using a rongeur. At this time, the wound was then flushed with copious amounts sterile normal saline. Subcutaneous tissue was then reapproximated with 2-0 Vicryl to the incision site. Next, 4-0 Vicryl was used to perform subcutaneous closure. Next, 3-0 nylon was used to reapproximate the skin with simple suture technique. Surgical sites were then dressed with Xeroform, 4 x 4, gauze and Kerlix. Tourniquet was deflated for 55 minutes. POSTOPERATIVE CONDITIONS: The patient tolerated the anesthesia and procedure well. He was escorted to recovery room with vital signs stable and neurovascular status intact to the left foot. The patient will follow up with Dr. [facility] as an outpatient and discharged from the floor. Jose C Hannah DPM Christian Toro DPM
[2017-03-23 06:44] LABS: BLOOD UREA NITROGEN 10 mg/dl (9-20); CALCIUM 8.7 mg/dL (8.4-10.2); CARBON DIOXIDE 27 mmol/L (22-30); CHLORIDE 101 mmol/L (98-107); GFR AFRICAN-AMERICAN > 60; GLUCOSE,RANDOM 290 mg/dL (75-110); POTASSIUM 3.8 MMOL/L (3.6-5.0); SODIUM 138 mmol/l (132-148)
--- NOTE | 2017-03-23 08:36 | CP.PCM.PN ---
Objective - Vital Signs/Intake and Output Vital Signs (last 24 hours): Temp Pulse Resp BP Pulse Ox 98.7 F 61 19 142/71 96 03/23/17 07:52 03/23/17 07:52 03/23/17 07:52 03/23/17 07:52 03/23/17 07:52 - Medications Medications: Current Medications Acetaminophen (Tylenol 325mg Tab) 650 mg PO Q4 PRN PRN Reason: Pain, Mild (1-3) Atorvastatin Calcium (Lipitor) 20 mg PO HS [facility] Last Admin: 03/22/17 21:39 Dose: 20 mg Collagenase (Santyl) 1 applic TOP DAILY [facility] Last Admin: 03/22/17 09:59 Dose: Not Given Dextrose (Dextrose 50% Inj) 0 ml IV STAT PRN; Protocol PRN Reason: Hyglycemia Protocol Dextrose (Glutose 15) 0 gm PO ONCE PRN; Protocol PRN Reason: Hypoglycemia Protocol Enoxaparin Sodium (Lovenox) 40 mg SC DAILY [facility] PRN Reason: Protocol Glipizide (Glucotrol) 10 mg PO BIDAC [facility] Last Admin: 03/22/17 17:14 Dose: Not Given Glucagon (Glucagen Diagnostic Kit) 0 mg IM STAT PRN; Protocol PRN Reason: Hypoglycemia Protocol Hydromorphone HCl (Dilaudid) 0.5 mg IVP Q15M PRN PRN Reason: Pain, moderate (4-7) Vancomycin HCl 1,500 mg/ (Sodium Chloride) 500 mls @ 250 mls/hr IVPB Q8H [facility] Last Admin: 03/23/17 07:26 Dose: 250 mls/hr Cefazolin Sodium 2 gm/ Sodium (Chloride) 100 mls @ 100 mls/hr IVPB Q8 [facility] Last Admin: 03/23/17 01:48 Dose: 100 mls/hr Sodium Chloride (Sodium Chloride 0.9%) 1,000 mls @ 100 mls/hr IV .Q10H [facility] Insulin Human Lispro (Humalog) 0 units SC ACHS [facility] PRN Reason: Protocol Last Admin: 03/22/17 21:35 Dose: Not Given Insulin Human NPH (Humulin N) 7 units SC Q12 [facility] Last Admin: 03/22/17 21:36 Dose: 7 units Lisinopril (Zestril) 20 mg PO DAILY [facility] Last Admin: 03/22/17 10:07 Dose: 20 mg Metformin HCl (Glucophage) 1,000 mg PO BIDWM [facility] Last Admin: 03/22/17 17:14 Dose: Not Given Oxycodone/Acetaminophen (Percocet 5/325 Mg Tab) 1 tab PO Q6 PRN PRN Reason: Pain, moderate (4-7) Stop: 03/25/17 17:53 Last Admin: 03/22/17 23:52 Dose: 1 tab Oxycodone/Acetaminophen (Percocet 5/325 Mg Tab) 2 tab PO Q6 PRN PRN Reason: Pain, severe (8-10) Stop: 03/25/17 17:53 Last Admin: 03/23/17 06:09 Dose: 2 tab - Labs Labs: 03/23/17 06:01 03/23/17 06:01 PT 11.6 Seconds (9.8-13.1) 03/21/17 05:00 INR 1.1 (0.9-1.2) 03/21/17 05:00 APTT 33.5 Seconds (25.6-37.1) 03/21/17 05:00
[2017-03-23] MEDS: Insulin Lispro (humaLOG) 100 Units/ml Inj SC SCH ×4 (08:53→21:41)
[2017-03-23] MEDS: Insulin NPH Human 100 Units/ml Inj SC SCH ×2 (08:54→21:35)
[2017-03-23] MEDS: Enoxaparin 40 mg Syringe SC SCH (08:54)
[2017-03-23] MEDS: Santyl Collagenase OINTMENT TOP SCH (13:06)
--- NOTE | 2017-03-23 17:45 | CP.PCM.PN ---
Subjective - Date & Time of Evaluation Date of Evaluation: 03/23/17 Time of Evaluation: 08:55 - Subjective Subjective: Patient seen and examined at bedside this morning Patient feels well, still c/o intermittent left foot pain, however well controlled with medications Denies Cp, SOB, N/V, abdominal pain, diarrheas afebrile, BP improving Objective - Vital Signs/Intake and Output Vital Signs (last 24 hours): Temp Pulse Resp BP Pulse Ox 98.2 F 67 19 120/67 95 03/23/17 15:36 03/23/17 15:36 03/23/17 15:36 03/23/17 15:36 03/23/17 15:36 - Medications Medications: Current Medications Acetaminophen (Tylenol 325mg Tab) 650 mg PO Q4 PRN PRN Reason: Pain, Mild (1-3) Atorvastatin Calcium (Lipitor) 20 mg PO HS [facility] Last Admin: 03/22/17 21:39 Dose: 20 mg Collagenase (Santyl) 1 applic TOP DAILY [facility] Last Admin: 03/23/17 13:06 Dose: Not Given Dextrose (Dextrose 50% Inj) 0 ml IV STAT PRN; Protocol PRN Reason: Hyglycemia Protocol Dextrose (Glutose 15) 0 gm PO ONCE PRN; Protocol PRN Reason: Hypoglycemia Protocol Enoxaparin Sodium (Lovenox) 40 mg SC DAILY [facility] PRN Reason: Protocol Last Admin: 03/23/17 08:54 Dose: 40 mg Glipizide (Glucotrol) 10 mg PO BIDAC [facility] Last Admin: 03/23/17 16:30 Dose: 10 mg Glucagon (Glucagen Diagnostic Kit) 0 mg IM STAT PRN; Protocol PRN Reason: Hypoglycemia Protocol Hydromorphone HCl (Dilaudid) 0.5 mg IVP Q15M PRN PRN Reason: Pain, moderate (4-7) Vancomycin HCl 1,500 mg/ (Sodium Chloride) 500 mls @ 250 mls/hr IVPB Q8H [facility] Last Admin: 03/23/17 15:58 Dose: 250 mls/hr Cefazolin Sodium 2 gm/ Sodium (Chloride) 100 mls @ 100 mls/hr IVPB Q8 [facility] Last Admin: 03/23/17 16:05 Dose: 100 mls/hr Sodium Chloride (Sodium Chloride 0.9%) 1,000 mls @ 100 mls/hr IV .Q10H [facility] Insulin Human Lispro (Humalog) 0 units SC ACHS [facility] PRN Reason: Protocol Last Admin: 03/23/17 16:30 Dose: 2 units Insulin Human NPH (Humulin N) 7 units SC Q12 [facility] Last Admin: 03/23/17 08:54 Dose: 7 units Lisinopril (Zestril) 20 mg PO DAILY [facility] Last Admin: 03/23/17 08:55 Dose: 20 mg Metformin HCl (Glucophage) 1,000 mg PO BIDWM [facility] Last Admin: 03/23/17 16:30 Dose: 1,000 mg Oxycodone/Acetaminophen (Percocet 5/325 Mg Tab) 1 tab PO Q6 PRN PRN Reason: Pain, moderate (4-7) Stop: 03/25/17 17:53 Last Admin: 03/22/17 23:52 Dose: 1 tab Oxycodone/Acetaminophen (Percocet 5/325 Mg Tab) 2 tab PO Q6 PRN PRN Reason: Pain, severe (8-10) Stop: 03/25/17 17:53 Last Admin: 03/23/17 06:09 Dose: 2 tab - Labs Labs: 03/23/17 06:01 03/23/17 06:01 PT 11.6 Seconds (9.8-13.1) 03/21/17 05:00 INR 1.1 (0.9-1.2) 03/21/17 05:00 APTT 33.5 Seconds (25.6-37.1) 03/21/17 05:00 - Constitutional Appears: No Acute Distress - ENT Exam ENT Exam: Mucous Membranes Moist - Respiratory Exam Respiratory Exam: Clear to Ausculation Bilateral, NORMAL BREATHING PATTERN - Cardiovascular Exam Cardiovascular Exam: REGULAR RHYTHM, +S1, +S2 - GI/Abdominal Exam GI & Abdominal Exam: Soft, Normal Bowel Sounds. absent: Distended, Firm, Guarding, Rigid, Tenderness - Extremities Exam Extremities Exam: Normal Inspection. absent: Calf Tenderness, Pedal Edema - Neurological Exam Neurological Exam: Alert, Awake, Oriented x3 - Skin Skin Exam: Dry, Intact, Normal Color Assessment and Plan - Assessment and Plan (Free Text) Assessment: 42 year old male with PMH of DM, HTN, HLD admitted for diabetic wound infection with open ulceration and cellulitis with +staph aureus and hyperglycemia 2' to uncontrolled DM. 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 Podiatry team will set up appointment for outpatient f/u f/u ID, Dr. Martínez recommendations MRI suspicious for OM, has advanced charcot arthopathy. Uncontrolled Diabetes improving BSL -HGA1C: 13.0 -c/w NPH insulin 7 units this AM, continue q12 -continue Metformin 1000 mg BID. glipizide 10mg BID -Insulin sliding protocol -hypoglycemic protocol -Diabetic diet, diabetes education HTN -improving -c/w Lisinopril 20 mg daily f/u BP HLD -ASCVD risk: 11.7% Lipid Panel: T, Total Chol: 141, LDL: 74, HDL : 25 -Atorvastatin 20 mg po daily DVT prophylaxis Lovenox 40 mg sc
--- NOTE | 2017-03-23 18:59 | CP.PCM.PN ---
Subjective - Date & Time of Evaluation Date of Evaluation: 03/23/17 Time of Evaluation: 16:00 - Subjective Subjective: Podiatry Progress Note - Dr. Toro 42 year old male patient seen at bedside POD #1 left foot resection of 5th proximal phalangeal base and metatarsal head. Patient is seen resting comfortably, AAOx3 and NAD. Patient states he has mild pain to the surgical site , but only experiences it when ambulating. Patient states he has been weight bearing to his left heel only, and only ambulates to and from the bathroom with the assistance of crutches. Patient denies N/V/F/D/C/SOB/calf pain. No other pedal complaints at this time. Objective - Vital Signs/Intake and Output Vital Signs (last 24 hours): Temp Pulse Resp BP Pulse Ox 98.2 F 67 19 120/67 95 03/23/17 15:36 03/23/17 15:36 03/23/17 15:36 03/23/17 15:36 03/23/17 15:36 - Medications Medications: Current Medications Acetaminophen (Tylenol 325mg Tab) 650 mg PO Q4 PRN PRN Reason: Pain, Mild (1-3) Atorvastatin Calcium (Lipitor) 20 mg PO HS [facility] Last Admin: 03/22/17 21:39 Dose: 20 mg Collagenase (Santyl) 1 applic TOP DAILY [facility] Last Admin: 03/23/17 13:06 Dose: Not Given Dextrose (Dextrose 50% Inj) 0 ml IV STAT PRN; Protocol PRN Reason: Hyglycemia Protocol Dextrose (Glutose 15) 0 gm PO ONCE PRN; Protocol PRN Reason: Hypoglycemia Protocol Enoxaparin Sodium (Lovenox) 40 mg SC DAILY [facility] PRN Reason: Protocol Last Admin: 03/23/17 08:54 Dose: 40 mg Glipizide (Glucotrol) 10 mg PO BIDAC [facility] Last Admin: 03/23/17 16:30 Dose: 10 mg Glucagon (Glucagen Diagnostic Kit) 0 mg IM STAT PRN; Protocol PRN Reason: Hypoglycemia Protocol Hydromorphone HCl (Dilaudid) 0.5 mg IVP Q15M PRN PRN Reason: Pain, moderate (4-7) Vancomycin HCl 1,500 mg/ (Sodium Chloride) 500 mls @ 250 mls/hr IVPB Q8H [facility] Last Admin: 03/23/17 15:58 Dose: 250 mls/hr Cefazolin Sodium 2 gm/ Sodium (Chloride) 100 mls @ 100 mls/hr IVPB Q8 [facility] Last Admin: 03/23/17 16:05 Dose: 100 mls/hr Sodium Chloride (Sodium Chloride 0.9%) 1,000 mls @ 100 mls/hr IV .Q10H [facility] Insulin Human Lispro (Humalog) 0 units SC ACHS [facility] PRN Reason: Protocol Last Admin: 03/23/17 16:30 Dose: 2 units Insulin Human NPH (Humulin N) 7 units SC Q12 [facility] Last Admin: 03/23/17 08:54 Dose: 7 units Lisinopril (Zestril) 20 mg PO DAILY [facility] Last Admin: 03/23/17 08:55 Dose: 20 mg Metformin HCl (Glucophage) 1,000 mg PO BIDWM [facility] Last Admin: 03/23/17 16:30 Dose: 1,000 mg Oxycodone/Acetaminophen (Percocet 5/325 Mg Tab) 1 tab PO Q6 PRN PRN Reason: Pain, moderate (4-7) Stop: 03/25/17 17:53 Last Admin: 03/22/17 23:52 Dose: 1 tab Oxycodone/Acetaminophen (Percocet 5/325 Mg Tab) 2 tab PO Q6 PRN PRN Reason: Pain, severe (8-10) Stop: 03/25/17 17:53 Last Admin: 03/23/17 06:09 Dose: 2 tab - Labs Labs: 03/23/17 06:01 03/23/17 06:01 PT 11.6 Seconds (9.8-13.1) 03/21/17 05:00 INR 1.1 (0.9-1.2) 03/21/17 05:00 APTT 33.5 Seconds (25.6-37.1) 03/21/17 05:00 - Constitutional Appears: Well, Non-toxic, No Acute Distress - Extremities Exam Additional comments: LLE focused physical exam Dressing appears clean/dry/intact VASC: DP/PT pulses are palpable 2/4, [employer]: < 3 sec to all digits, TG: warm to warm; non-pitting edema noted to dorsum of forefoot DERM: Wound present measuring approximately 3.0 x 2.5 x 0.3 cm on the plantar lateral aspect submet head 5 on the left, wound base is approx. 70% granular and 30% fibrotic with haile-wound hyperkeratotic rim, no drainage noted from the wound bed, no foul odor, no probe to bone, no purulent drainage, no undermining , periwound erythema extending from lateral aspect of 5th metatarsal shaft to the base of the 5th digit, decreased from yesterday. Surgical incision noted to dorsal 5th metatarsal appears to be well-coapted with sutures intact and no wound dehiscence noted. NEURO: Protective sensation mildly diminished ORTHO: tenderness on palpation of the haile-wound area, 4th digit amputation on the left, rigit contracture of the digits noted on the right - Neurological Exam Neurological Exam: Alert, Awake, Oriented x3 - Psychiatric Exam Psychiatric exam: Normal Affect, Normal Mood Assessment and Plan - Assessment and Plan (Free Text) Assessment: 42 year old male POD#1 resection of 5th proximal phalangeal base and metatarsal head; left foot 5th digit proximal phalanx bas and metatarsal head osteomyelitis Plan: Patient seen and evaluated at bedside Discussed with attending, Dr. Toro Chart, vitals, labs reviewed = afebrile, WBC WNL @ 7.1 LLE dressed with DSD Continue abx per ID = Vancomycin, Cefazolin Per ID, patient will be discharged on IV Rocephin 2g daily, pending bone culture report F/U infusion center for outpatient IV abx Patient is stable to be discharged from podiatry standpoint Will schedule wound care appointment with Dr. Toro Podiatry will continue to follow while in house
[2017-03-24] MEDS: ceFAZolin 2 GM in Sodium Chloride 0.9% 100 ML IVPB SCH ×2 (00:21→09:20)
[2017-03-24 06:39] LABS: BLOOD UREA NITROGEN 9 mg/dl (9-20); CALCIUM 8.6 mg/dL (8.4-10.2); CARBON DIOXIDE 29 mmol/L (22-30); CHLORIDE 104 mmol/L (98-107); GFR AFRICAN-AMERICAN > 60; GLUCOSE,RANDOM 97 mg/dL (75-110); POTASSIUM 3.5 MMOL/L (3.6-5.0); SODIUM 142 mmol/l (132-148)
[2017-03-24] MEDS: Insulin Lispro (humaLOG) 100 Units/ml Inj SC SCH ×4 (09:21→21:26)
[2017-03-24] MEDS: Enoxaparin 40 mg Syringe SC SCH (09:22)
[2017-03-24] MEDS: Insulin NPH Human 100 Units/ml Inj SC SCH ×2 (09:22→21:25)
[2017-03-24] MEDS: Santyl Collagenase OINTMENT TOP SCH (09:23)
--- NOTE | 2017-03-24 09:26 | CP.PCM.PN ---
Subjective - Date & Time of Evaluation Date of Evaluation: 03/24/17 Time of Evaluation: 10:05 - Subjective Subjective: Podiatry Progress Note - Dr. Toro 42 year old male patient seen at bedside POD #2 left foot resection of 5th proximal phalangeal base and metatarsal head. Patient is seen resting comfortably, AAOx3 and NAD. Patient states he has mild pain to the surgical site , decreased since yesterday. Patient states he has been weight bearing to his left heel only, and only ambulates to and from the bathroom with the assistance of crutches. Patient denies N/V/F/D/C/SOB/calf pain. No other pedal complaints at this time. Objective - Vital Signs/Intake and Output Vital Signs (last 24 hours): Temp Pulse Resp BP Pulse Ox 97.9 F 62 18 173/88 H 94 L 03/24/17 07:44 03/24/17 07:44 03/24/17 07:44 03/24/17 07:44 03/24/17 07:44 - Medications Medications: Current Medications Acetaminophen (Tylenol 325mg Tab) 650 mg PO Q4 PRN PRN Reason: Pain, Mild (1-3) Atorvastatin Calcium (Lipitor) 20 mg PO HS [facility] Last Admin: 03/23/17 21:34 Dose: 20 mg Collagenase (Santyl) 1 applic TOP DAILY [facility] Last Admin: 03/24/17 09:23 Dose: Not Given Dextrose (Dextrose 50% Inj) 0 ml IV STAT PRN; Protocol PRN Reason: Hyglycemia Protocol Dextrose (Glutose 15) 0 gm PO ONCE PRN; Protocol PRN Reason: Hypoglycemia Protocol Enoxaparin Sodium (Lovenox) 40 mg SC DAILY [facility] PRN Reason: Protocol Last Admin: 03/24/17 09:22 Dose: 40 mg Glipizide (Glucotrol) 10 mg PO BIDAC [facility] Last Admin: 03/24/17 09:21 Dose: 10 mg Glucagon (Glucagen Diagnostic Kit) 0 mg IM STAT PRN; Protocol PRN Reason: Hypoglycemia Protocol Hydromorphone HCl (Dilaudid) 0.5 mg IVP Q15M PRN PRN Reason: Pain, moderate (4-7) Vancomycin HCl 1,500 mg/ (Sodium Chloride) 500 mls @ 250 mls/hr IVPB Q8H [facility] Last Admin: 03/24/17 07:04 Dose: 250 mls/hr Cefazolin Sodium 2 gm/ Sodium (Chloride) 100 mls @ 100 mls/hr IVPB Q8 [facility] Last Admin: 03/24/17 09:20 Dose: 100 mls/hr Sodium Chloride (Sodium Chloride 0.9%) 1,000 mls @ 100 mls/hr IV .Q10H [facility] Last Admin: 03/24/17 07:06 Dose: 100 mls/hr Insulin Human Lispro (Humalog) 0 units SC ACHS [facility] PRN Reason: Protocol Last Admin: 03/24/17 09:21 Dose: Not Given Insulin Human NPH (Humulin N) 7 units SC Q12 [facility] Last Admin: 03/24/17 09:22 Dose: 7 units Lisinopril (Zestril) 20 mg PO DAILY [facility] Last Admin: 03/23/17 08:55 Dose: 20 mg Metformin HCl (Glucophage) 1,000 mg PO BIDWM [facility] Last Admin: 03/24/17 09:21 Dose: 1,000 mg Oxycodone/Acetaminophen (Percocet 5/325 Mg Tab) 1 tab PO Q6 PRN PRN Reason: Pain, moderate (4-7) Stop: 03/25/17 17:53 Last Admin: 03/22/17 23:52 Dose: 1 tab Oxycodone/Acetaminophen (Percocet 5/325 Mg Tab) 2 tab PO Q6 PRN PRN Reason: Pain, severe (8-10) Stop: 03/25/17 17:53 Last Admin: 03/23/17 06:09 Dose: 2 tab - Labs Labs: 03/23/17 06:01 03/24/17 06:15 PT 11.6 Seconds (9.8-13.1) 03/21/17 05:00 INR 1.1 (0.9-1.2) 03/21/17 05:00 APTT 33.5 Seconds (25.6-37.1) 03/21/17 05:00 - Constitutional Appears: Well, Non-toxic, No Acute Distress - Extremities Exam Additional comments: LLE focused physical exam Dressing appears clean/dry/intact with no strikethrough noted VASC: DP/PT pulses are palpable 2/4, TEACHER MUSIC: < 3 sec to all digits, TG: warm to warm; non-pitting edema noted to dorsum of forefoot DERM: Wound present measuring approximately 3.0 x 2.5 x 0.3 cm on the plantar lateral aspect submet head 5 on the left, wound base is approx. 50% granular and 50% fibrotic with hyperkeratotic rim, serosanguinous drainage noted from the wound bed, no foul odor, no probe to bone, no purulent drainage, no undermining, mild periwound erythema extending from lateral aspect of dorsal 5th metatarsal shaft to the base of the 5th digit. Surgical incision noted to dorsal 5th metatarsal appears to be well-coapted with sutures intact and no wound dehiscence noted. NEURO: Protective sensation mildly diminished ORTHO: tenderness on palpation of the haile-wound area, 4th digit amputation on the left, contracture of the digits - Neurological Exam Neurological Exam: Alert, Awake, Oriented x3 - Psychiatric Exam Psychiatric exam: Normal Affect, Normal Mood Assessment and Plan - Assessment and Plan (Free Text) Assessment: 42 year old male POD#2 resection of 5th proximal phalangeal base and metatarsal head; left foot 5th digit proximal phalanx base and metatarsal head osteomyelitis Plan: Patient seen and evaluated at bedside Discussed with attending, Dr. Toro Chart, vitals, labs reviewed = afebrile LLE dressed with xeroform and DSD Continue abx per ID = Vancomycin, Cefazolin Per ID, patient will be discharged on IV Rocephin 2g daily, pending bone culture report Per family medicine, awaiting bone culture report prior to discharge on outpt IV abx Patient is stable to be discharged from podiatry standpoint Will schedule wound care appointment with Dr. Toro Podiatry will continue to follow while in house
--- NOTE | 2017-03-24 10:02 | CP.PCM.PN ---
Subjective - Date & Time of Evaluation Date of Evaluation: 03/24/17 Time of Evaluation: 07:30 - Subjective Subjective: Pt seen and examined at bedside. Appears comfortable, denies any overnight problems, complaints, or pain. Denies fevers/chills, n/v/d, chest pain, SOB, dyspnea, cough, or abdominal pain. Objective - Vital Signs/Intake and Output Vital Signs (last 24 hours): Temp Pulse Resp BP Pulse Ox 97.9 F 62 18 173/88 H 94 L 03/24/17 07:44 03/24/17 09:29 03/24/17 07:44 03/24/17 09:29 03/24/17 07:44 - Medications Medications: Current Medications Acetaminophen (Tylenol 325mg Tab) 650 mg PO Q4 PRN PRN Reason: Pain, Mild (1-3) Atorvastatin Calcium (Lipitor) 20 mg PO HS [facility] Last Admin: 03/23/17 21:34 Dose: 20 mg Collagenase (Santyl) 1 applic TOP DAILY [facility] Last Admin: 03/24/17 09:23 Dose: Not Given Dextrose (Dextrose 50% Inj) 0 ml IV STAT PRN; Protocol PRN Reason: Hyglycemia Protocol Dextrose (Glutose 15) 0 gm PO ONCE PRN; Protocol PRN Reason: Hypoglycemia Protocol Enoxaparin Sodium (Lovenox) 40 mg SC DAILY [facility] PRN Reason: Protocol Last Admin: 03/24/17 09:22 Dose: 40 mg Glipizide (Glucotrol) 10 mg PO BIDAC [facility] Last Admin: 03/24/17 09:21 Dose: 10 mg Glucagon (Glucagen Diagnostic Kit) 0 mg IM STAT PRN; Protocol PRN Reason: Hypoglycemia Protocol Hydromorphone HCl (Dilaudid) 0.5 mg IVP Q15M PRN PRN Reason: Pain, moderate (4-7) Vancomycin HCl 1,500 mg/ (Sodium Chloride) 500 mls @ 250 mls/hr IVPB Q8H [facility] Last Admin: 03/24/17 07:04 Dose: 250 mls/hr Cefazolin Sodium 2 gm/ Sodium (Chloride) 100 mls @ 100 mls/hr IVPB Q8 [facility] Last Admin: 03/24/17 09:20 Dose: 100 mls/hr Sodium Chloride (Sodium Chloride 0.9%) 1,000 mls @ 100 mls/hr IV .Q10H [facility] Last Admin: 03/24/17 07:06 Dose: 100 mls/hr Insulin Human Lispro (Humalog) 0 units SC ACHS [facility] PRN Reason: Protocol Last Admin: 03/24/17 09:21 Dose: Not Given Insulin Human NPH (Humulin N) 7 units SC Q12 [facility] Last Admin: 03/24/17 09:22 Dose: 7 units Lisinopril (Zestril) 20 mg PO DAILY [facility] Last Admin: 03/24/17 09:29 Dose: 20 mg Metformin HCl (Glucophage) 1,000 mg PO BIDWM [facility] Last Admin: 03/24/17 09:21 Dose: 1,000 mg Oxycodone/Acetaminophen (Percocet 5/325 Mg Tab) 1 tab PO Q6 PRN PRN Reason: Pain, moderate (4-7) Stop: 03/25/17 17:53 Last Admin: 03/22/17 23:52 Dose: 1 tab Oxycodone/Acetaminophen (Percocet 5/325 Mg Tab) 2 tab PO Q6 PRN PRN Reason: Pain, severe (8-10) Stop: 03/25/17 17:53 Last Admin: 03/23/17 06:09 Dose: 2 tab - Labs Labs: 03/23/17 06:01 03/24/17 06:15 PT 11.6 Seconds (9.8-13.1) 03/21/17 05:00 INR 1.1 (0.9-1.2) 03/21/17 05:00 APTT 33.5 Seconds (25.6-37.1) 03/21/17 05:00 - Constitutional Appears: Non-toxic, No Acute Distress - Head Exam Head Exam: ATRAUMATIC, NORMOCEPHALIC - Eye Exam Eye Exam: EOMI - Respiratory Exam Respiratory Exam: Clear to Ausculation Bilateral, NORMAL BREATHING PATTERN - Cardiovascular Exam Cardiovascular Exam: REGULAR RHYTHM, +S1, +S2 - GI/Abdominal Exam GI & Abdominal Exam: Soft, Normal Bowel Sounds. absent: Tenderness - Extremities Exam Extremities Exam: absent: Tenderness Additional comments: minimal edema of L foot - Neurological Exam Neurological Exam: Alert, Oriented x3 - Skin Skin Exam: Dry, Intact, Normal Color, Warm Assessment and Plan - Assessment and Plan (Free Text) Plan: 42 year old male with PMH of DM, HTN, HLD admitted for diabetic wound infection with open ulceration and cellulitis with +staph aureus and hyperglycemia 2' to uncontrolled DM. 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 IV abx Ceftriaxone 2g IVPB Daily; for 6 weeks w weekly CBC, CMP, ESR, CRP as per ID -Vancomycin Day 7 given; d/c'ed -Ancef Day 5 given; d/c'ed c/w wound care by Podiatry team, pt will f/u at podiatry clinic after DC will need daily appointments at infusion center 2) Uncontrolled Diabetes FS 180s-250s -HGA1C: 13.0 -c/w NPH 7 units Q12 -Metformin 1000 mg BID -Glipizide 10mg BID -Insulin sliding protocol -hypoglycemic protocol -Diabetic diet, diabetes education 3) HTN -improving -Lisinopril 20 mg daily -added Norvasc 5mg f/u BP 4) HLD -ASCVD risk: 11.7% Lipid Panel: T, Total Chol: 141, LDL: 74, HDL : 25 -Atorvastatin 20 mg po daily 5) DVT prophylaxis Lovenox 40 mg SC
--- NOTE | 2017-03-24 12:52 | CP.PCM.PN ---
Subjective - Date & Time of Evaluation Date of Evaluation: 03/24/17 Time of Evaluation: 08:00 - Subjective Subjective: iv rx in progress possible d/c home Objective - Vital Signs/Intake and Output Vital Signs (last 24 hours): Temp Pulse Resp BP Pulse Ox 97.9 F 62 18 173/88 H 94 L 03/24/17 07:44 03/24/17 09:29 03/24/17 07:44 03/24/17 09:29 03/24/17 07:44 - Medications Medications: Current Medications Acetaminophen (Tylenol 325mg Tab) 650 mg PO Q4 PRN PRN Reason: Pain, Mild (1-3) Atorvastatin Calcium (Lipitor) 20 mg PO HS [facility] Last Admin: 03/23/17 21:34 Dose: 20 mg Collagenase (Santyl) 1 applic TOP DAILY [facility] Last Admin: 03/24/17 09:23 Dose: Not Given Dextrose (Dextrose 50% Inj) 0 ml IV STAT PRN; Protocol PRN Reason: Hyglycemia Protocol Dextrose (Glutose 15) 0 gm PO ONCE PRN; Protocol PRN Reason: Hypoglycemia Protocol Enoxaparin Sodium (Lovenox) 40 mg SC DAILY [facility] PRN Reason: Protocol Last Admin: 03/24/17 09:22 Dose: 40 mg Glipizide (Glucotrol) 10 mg PO BIDAC [facility] Last Admin: 03/24/17 09:21 Dose: 10 mg Glucagon (Glucagen Diagnostic Kit) 0 mg IM STAT PRN; Protocol PRN Reason: Hypoglycemia Protocol Ceftriaxone Sodium 2 gm/ (Sodium Chloride) 100 mls @ 100 mls/hr IVPB DAILY [facility] Insulin Human Lispro (Humalog) 0 units SC ACHS [facility] PRN Reason: Protocol Last Admin: 03/24/17 11:33 Dose: 4 units Insulin Human NPH (Humulin N) 7 units SC Q12 [facility] Last Admin: 03/24/17 09:22 Dose: 7 units Lisinopril (Zestril) 20 mg PO DAILY [facility] Last Admin: 03/24/17 09:29 Dose: 20 mg Metformin HCl (Glucophage) 1,000 mg PO BIDWM [facility] Last Admin: 03/24/17 09:21 Dose: 1,000 mg Oxycodone/Acetaminophen (Percocet 5/325 Mg Tab) 1 tab PO Q6 PRN PRN Reason: Pain, moderate (4-7) Stop: 03/25/17 17:53 Last Admin: 03/22/17 23:52 Dose: 1 tab Oxycodone/Acetaminophen (Percocet 5/325 Mg Tab) 2 tab PO Q6 PRN PRN Reason: Pain, severe (8-10) Stop: 03/25/17 17:53 Last Admin: 03/23/17 06:09 Dose: 2 tab - Labs Labs: 03/23/17 06:01 03/24/17 06:15 PT 11.6 Seconds (9.8-13.1) 03/21/17 05:00 INR 1.1 (0.9-1.2) 03/21/17 05:00 APTT 33.5 Seconds (25.6-37.1) 03/21/17 05:00 - Constitutional Appears: Non-toxic, Chronically Ill - Head Exam Head Exam: NORMOCEPHALIC - Eye Exam Eye Exam: absent: Scleral icterus - ENT Exam ENT Exam: Mucous Membranes Dry - Neck Exam Neck Exam: absent: Lymphadenopathy - Respiratory Exam Respiratory Exam: Decreased Breath Sounds, Clear to Ausculation Bilateral - Cardiovascular Exam Cardiovascular Exam: REGULAR RHYTHM - GI/Abdominal Exam GI & Abdominal Exam: Distended, Soft Assessment and Plan (1) Cellulitis of foot Status: Acute (2) Diabetic foot ulcer Status: Acute (3) Uncontrolled diabetes mellitus Status: Acute (4) Cellulitis Status: Acute (5) Diabetes Status: Acute
[2017-03-24] MEDS: cefTRIAXone 2 GM in Sodium Chloride 0.9% 100 ML IVPB SCH (17:01)
[2017-03-25] MEDS: Insulin Lispro (humaLOG) 100 Units/ml Inj SC SCH ×4 (06:50→21:52)
[2017-03-25] MEDS: Enoxaparin 40 mg Syringe SC SCH (08:37)
[2017-03-25] MEDS: Insulin NPH Human 100 Units/ml Inj SC SCH ×2 (08:43→21:53)
[2017-03-25] MEDS: cefTRIAXone 2 GM in Sodium Chloride 0.9% 100 ML IVPB SCH (08:50)
--- NOTE | 2017-03-25 09:12 | CP.PCM.PN ---
Subjective - Date & Time of Evaluation Date of Evaluation: 03/25/17 Time of Evaluation: 08:05 - Subjective Subjective: Patient seen and examined this morning Pt feels well, pain is well controlled with meds Denies Cp, SOB, cough, chills, N/V, abdominal pain, diarrheas Tolerating PO, and tolerating ambulation Afebrile Objective - Vital Signs/Intake and Output Vital Signs (last 24 hours): Temp Pulse Resp BP Pulse Ox 98 F 60 20 153/80 H 96 03/25/17 08:20 03/25/17 08:51 03/25/17 08:42 03/25/17 08:51 03/25/17 08:20 - Medications Medications: Current Medications Acetaminophen (Tylenol 325mg Tab) 650 mg PO Q4 PRN PRN Reason: Pain, Mild (1-3) Amlodipine Besylate (Norvasc) 5 mg PO DAILY [facility] Last Admin: 03/25/17 08:51 Dose: 5 mg Atorvastatin Calcium (Lipitor) 20 mg PO HS [facility] Last Admin: 03/24/17 21:25 Dose: 20 mg Collagenase (Santyl) 1 applic TOP DAILY [facility] Last Admin: 03/24/17 09:23 Dose: Not Given Dextrose (Dextrose 50% Inj) 0 ml IV STAT PRN; Protocol PRN Reason: Hyglycemia Protocol Dextrose (Glutose 15) 0 gm PO ONCE PRN; Protocol PRN Reason: Hypoglycemia Protocol Enoxaparin Sodium (Lovenox) 40 mg SC DAILY [facility] PRN Reason: Protocol Last Admin: 03/25/17 08:37 Dose: 40 mg Glipizide (Glucotrol) 10 mg PO BIDAC [facility] Last Admin: 03/25/17 08:42 Dose: 10 mg Glucagon (Glucagen Diagnostic Kit) 0 mg IM STAT PRN; Protocol PRN Reason: Hypoglycemia Protocol Ceftriaxone Sodium 2 gm/ (Sodium Chloride) 100 mls @ 100 mls/hr IVPB DAILY [facility] Last Admin: 03/25/17 08:50 Dose: 100 mls/hr Insulin Human Lispro (Humalog) 0 units SC ACHS [facility] PRN Reason: Protocol Last Admin: 03/25/17 06:50 Dose: Not Given Insulin Human NPH (Humulin N) 7 units SC Q12 [facility] Last Admin: 03/25/17 08:43 Dose: 7 units Lisinopril (Zestril) 20 mg PO DAILY [facility] Last Admin: 03/25/17 08:41 Dose: 20 mg Metformin HCl (Glucophage) 1,000 mg PO BIDWM [facility] Last Admin: 03/25/17 08:42 Dose: 1,000 mg Oxycodone/Acetaminophen (Percocet 5/325 Mg Tab) 1 tab PO Q6 PRN PRN Reason: Pain, moderate (4-7) Stop: 03/25/17 17:53 Last Admin: 03/22/17 23:52 Dose: 1 tab Oxycodone/Acetaminophen (Percocet 5/325 Mg Tab) 2 tab PO Q6 PRN PRN Reason: Pain, severe (8-10) Stop: 03/25/17 17:53 Last Admin: 03/23/17 06:09 Dose: 2 tab - Labs Labs: 03/23/17 06:01 03/24/17 06:15 PT 11.6 Seconds (9.8-13.1) 03/21/17 05:00 INR 1.1 (0.9-1.2) 03/21/17 05:00 APTT 33.5 Seconds (25.6-37.1) 03/21/17 05:00 - Constitutional Appears: No Acute Distress - ENT Exam ENT Exam: Mucous Membranes Moist - Respiratory Exam Respiratory Exam: Clear to Ausculation Bilateral, NORMAL BREATHING PATTERN - Cardiovascular Exam Cardiovascular Exam: REGULAR RHYTHM, +S1, +S2 - GI/Abdominal Exam GI & Abdominal Exam: Soft, Normal Bowel Sounds. absent: Distended, Guarding, Rigid, Tenderness - Extremities Exam Extremities Exam: Normal Inspection. absent: Calf Tenderness, Pedal Edema - Neurological Exam Neurological Exam: Alert, Awake, Oriented x3 Assessment and Plan - Assessment and Plan (Free Text) Assessment: 42 year old male with PMH of DM, HTN, HLD admitted for diabetic wound infection with open ulceration and cellulitis with +staph aureus and hyperglycemia 2' to uncontrolled DM. 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 IV abx c/w Ceftriaxone 2g IVPB Daily; for 6 weeks w weekly CBC, CMP, ESR, CRP as per ID c/w wound care by Podiatry team, pt will f/u at podiatry clinic after DC will need daily appointments at infusion center waiting for case management coordinator to set up outpatient IV antibiotic x 6 weeks as per ID recommendations Uncontrolled Diabetes FS 180s-250s -HGA1C: 13.0 -c/w NPH 7 units Q12 -Metformin 1000 mg BID -Glipizide 10mg BID -Insulin sliding protocol -hypoglycemic protocol -Diabetic diet, diabetes education HTN -improving -c/w Lisinopril 20 mg PO daily -c/w Norvasc 5mg PO daily f/u BP HLD -ASCVD risk: 11.7% Lipid Panel: T, Total Chol: 141, LDL: 74, HDL : 25 -Atorvastatin 20 mg po daily DVT prophylaxis Lovenox 40 mg SC
[2017-03-25] MEDS: Santyl Collagenase OINTMENT TOP SCH (10:56)
--- NOTE | 2017-03-25 12:38 | CP.PCM.PN ---
Subjective - Date & Time of Evaluation Date of Evaluation: 03/25/17 Time of Evaluation: 10:15 - Subjective Subjective: Podiatry Progress Note - Dr. Toro 42 year old male patient seen at bedside POD #3 left foot resection of 5th proximal phalangeal base and metatarsal head. Patient is seen resting comfortably, AAOx3 and NAD. Patient states he has little pain to surgical site. Patient states he has been weight bearing to his left heel only, and only ambulates to and from the bathroom with the assistance of crutches. Patient states he has been ambulating more frequently. Patient denies N/V/F/D/C/SOB/ calf pain. No other pedal complaints at this time. Objective - Vital Signs/Intake and Output Vital Signs (last 24 hours): Temp Pulse Resp BP Pulse Ox 98 F 60 20 153/80 H 96 03/25/17 08:20 03/25/17 08:51 03/25/17 08:42 03/25/17 08:51 03/25/17 08:20 - Medications Medications: Current Medications Acetaminophen (Tylenol 325mg Tab) 650 mg PO Q4 PRN PRN Reason: Pain, Mild (1-3) Amlodipine Besylate (Norvasc) 5 mg PO DAILY [facility] Last Admin: 03/25/17 08:51 Dose: 5 mg Atorvastatin Calcium (Lipitor) 20 mg PO HS [facility] Last Admin: 03/24/17 21:25 Dose: 20 mg Collagenase (Santyl) 1 applic TOP DAILY [facility] Last Admin: 03/24/17 09:23 Dose: Not Given Dextrose (Dextrose 50% Inj) 0 ml IV STAT PRN; Protocol PRN Reason: Hyglycemia Protocol Dextrose (Glutose 15) 0 gm PO ONCE PRN; Protocol PRN Reason: Hypoglycemia Protocol Enoxaparin Sodium (Lovenox) 40 mg SC DAILY [facility] PRN Reason: Protocol Last Admin: 03/25/17 08:37 Dose: 40 mg Glipizide (Glucotrol) 10 mg PO BIDAC [facility] Last Admin: 03/25/17 08:42 Dose: 10 mg Glucagon (Glucagen Diagnostic Kit) 0 mg IM STAT PRN; Protocol PRN Reason: Hypoglycemia Protocol Ceftriaxone Sodium 2 gm/ (Sodium Chloride) 100 mls @ 100 mls/hr IVPB DAILY [facility] Last Admin: 03/25/17 08:50 Dose: 100 mls/hr Insulin Human Lispro (Humalog) 0 units SC ACHS [facility] PRN Reason: Protocol Last Admin: 03/25/17 06:50 Dose: Not Given Insulin Human NPH (Humulin N) 7 units SC Q12 [facility] Last Admin: 03/25/17 08:43 Dose: 7 units Lisinopril (Zestril) 20 mg PO DAILY [facility] Last Admin: 03/25/17 08:41 Dose: 20 mg Metformin HCl (Glucophage) 1,000 mg PO BIDWM [facility] Last Admin: 03/25/17 08:42 Dose: 1,000 mg Oxycodone/Acetaminophen (Percocet 5/325 Mg Tab) 1 tab PO Q6 PRN PRN Reason: Pain, moderate (4-7) Stop: 03/25/17 17:53 Last Admin: 03/22/17 23:52 Dose: 1 tab Oxycodone/Acetaminophen (Percocet 5/325 Mg Tab) 2 tab PO Q6 PRN PRN Reason: Pain, severe (8-10) Stop: 03/25/17 17:53 Last Admin: 03/23/17 06:09 Dose: 2 tab - Labs Labs: 03/23/17 06:01 03/24/17 06:15 PT 11.6 Seconds (9.8-13.1) 03/21/17 05:00 INR 1.1 (0.9-1.2) 03/21/17 05:00 APTT 33.5 Seconds (25.6-37.1) 03/21/17 05:00 - Constitutional Appears: Well, Non-toxic, No Acute Distress - Extremities Exam Additional comments: LLE focused physical exam Dressing appears clean/dry/intact with no strikethrough noted VASC: DP/PT pulses are palpable 2/4, [employer]ESPERSON [employer] NEEDS: < 3 sec to all digits, TG: warm to warm; non-pitting edema noted to dorsum of forefoot DERM: Wound present measuring approximately 3.0 x 2.5 x 0.3 cm on the plantar lateral aspect submet head 5 on the left, wound base is approx. 50% granular and 50% fibrotic with hyperkeratotic rim, mild serosanguinous drainage noted from the wound bed, no foul odor, no probe to bone, no purulent drainage, no undermining, mild periwound erythema extending from lateral aspect of dorsal 5th metatarsal shaft to the base of the 5th digit. Surgical incision noted to dorsal 5th metatarsal appears to be well-coapted with sutures intact and no wound dehiscence noted. NEURO: Protective sensation mildly diminished ORTHO: No tenderness on palpation of the haile-wound area, 4th digit amputation on the left, contracture of the digits - Neurological Exam Neurological Exam: Alert, Awake, Oriented x3 - Psychiatric Exam Psychiatric exam: Normal Affect, Normal Mood Assessment and Plan - Assessment and Plan (Free Text) Assessment: 42 year old male POD#3 resection of 5th proximal phalangeal base and metatarsal head; left foot 5th digit proximal phalanx base and metatarsal head osteomyelitis Plan: Patient seen and evaluated at bedside Discussed with attending, Dr. Toro Chart, vitals, labs reviewed = afebrile LLE dressed with xeroform and DSD Continue abx per ID = d/c Vancomycin, d/c Cefazolin; c/w Ceftriaxone 2g IVPB for 6 weeks Per family medicine, awaiting bone culture report prior to discharge Patient is stable to be discharged from podiatry standpoint Will schedule wound care appointment with Dr. Toro Podiatry will continue to follow while in house
[2017-03-25] MEDS ORDERED: Sodium Chloride 0.9% 1,000 ML IV SCH (15:30)
[2017-03-26] MEDS: Insulin Lispro (humaLOG) 100 Units/ml Inj SC SCH ×2 (06:53→12:15)
[2017-03-26 08:06] VITALS: BP 138/80; PULSE 55; RESP 18; TEMP 98.5; O2SAT 94
--- NOTE | 2017-03-26 08:12 | CP.PCM.PN ---
Subjective - Date & Time of Evaluation Date of Evaluation: 03/26/17 Time of Evaluation: 08:07 - Subjective Subjective: Podiatry Progress Note - Dr. Toro 42 y/o male patient seen at bedside 4 days s/p L foot resection of 5th proximal phalanx base and 5th metatarsal head. Patient is seen resting comfortably, AAOx3 and NAD. Patient denies having any significant pain in his left foot. Pt has been using crutches at all times when he is out of bed. Patient states he has been ambulating more frequently and is feeling more comfortable with the crutches, putting weight down only on his heel if necessary. Patient denies F/C/ N/V/D/SOB/calf pain. No other pedal complaints at this time. Objective - Vital Signs/Intake and Output Vital Signs (last 24 hours): Temp Pulse Resp BP Pulse Ox 98.5 F 55 L 18 138/80 94 L 03/26/17 08:06 03/26/17 08:06 03/26/17 08:06 03/26/17 08:06 03/26/17 08:06 - Medications Medications: Current Medications Acetaminophen (Tylenol 325mg Tab) 650 mg PO Q4 PRN PRN Reason: Pain, Mild (1-3) Amlodipine Besylate (Norvasc) 5 mg PO DAILY [facility] Last Admin: 03/25/17 08:51 Dose: 5 mg Atorvastatin Calcium (Lipitor) 20 mg PO HS [facility] Last Admin: 03/25/17 21:52 Dose: 20 mg Collagenase (Santyl) 1 applic TOP DAILY [facility] Last Admin: 03/25/17 10:56 Dose: 1 applic Dextrose (Dextrose 50% Inj) 0 ml IV STAT PRN; Protocol PRN Reason: Hyglycemia Protocol Dextrose (Glutose 15) 0 gm PO ONCE PRN; Protocol PRN Reason: Hypoglycemia Protocol Enoxaparin Sodium (Lovenox) 40 mg SC DAILY [facility] PRN Reason: Protocol Last Admin: 03/25/17 08:37 Dose: 40 mg Glipizide (Glucotrol) 10 mg PO BIDAC [facility] Last Admin: 03/26/17 06:52 Dose: 10 mg Glucagon (Glucagen Diagnostic Kit) 0 mg IM STAT PRN; Protocol PRN Reason: Hypoglycemia Protocol Ceftriaxone Sodium 2 gm/ (Sodium Chloride) 100 mls @ 100 mls/hr IVPB DAILY [facility] Last Admin: 03/25/17 08:50 Dose: 100 mls/hr Insulin Human Lispro (Humalog) 0 units SC ACHS [facility] PRN Reason: Protocol Last Admin: 03/26/17 06:53 Dose: Not Given Insulin Human NPH (Humulin N) 7 units SC Q12 [facility] Last Admin: 03/25/17 21:53 Dose: 7 units Lisinopril (Zestril) 20 mg PO DAILY [facility] Last Admin: 03/25/17 08:41 Dose: 20 mg Metformin HCl (Glucophage) 1,000 mg PO BIDWM [facility] Last Admin: 03/25/17 16:58 Dose: 1,000 mg - Labs Labs: 03/23/17 06:01 03/24/17 06:15 PT 11.6 Seconds (9.8-13.1) 03/21/17 05:00 INR 1.1 (0.9-1.2) 03/21/17 05:00 APTT 33.5 Seconds (25.6-37.1) 03/21/17 05:00 - Constitutional Appears: Well, Non-toxic, No Acute Distress - Extremities Exam Additional comments: LLE focused examination: Upon visit this morning, dressing is clean/dry/intact with no strikethrough noted VASC: DP/PT pulses are palpable 2/4. CFT< 3 sec to all digits. Temperature gradient warm to warm. Non-pitting edema noted to dorsum of forefoot DERM: Surgical incision noted to dorsolateral 5th metatarsal appears well- coapted with sutures intact and no wound dehiscence noted. Wound present to the plantar lateral aspect sub met 5 measuring approximately 3.0 x 2.5 x 0.3 cm. Wound base is approx. 50% granular and 50% fibrotic with hyperkeratotic rim. Mild serosanguinous drainage noted from the wound bed. No malodor, no probe to bone, no purulent drainage, no undermining. Mild periwound erythema extending from lateral aspect of dorsal 5th metatarsal shaft to the base of the 5th digit. NEURO: Protective sensation slightly diminished ORTHO: No tenderness on palpation of the haile-wound area or surgical site - Neurological Exam Neurological Exam: Alert, Awake, Oriented x3 - Psychiatric Exam Psychiatric exam: Normal Affect, Normal Mood Assessment and Plan - Assessment and Plan (Free Text) Assessment: 42 y/o male 4 days s/p L foot resection of 5th proximal phalangeal base and metatarsal head following 5th digit proximal phalanx base and metatarsal head osteomyelitis Plan: Patient seen and evaluated at bedside Discussed with attending, Dr. Toro Chart, vitals, labs reviewed = afebrile LLE dressed with xeroform and DSD Continue abx per ID - continue Ceftriaxone 2g IVPB for 6 weeks Per family medicine, awaiting bone culture report prior to discharge Patient stable for D/C from podiatry standpoint Will schedule wound care appointment with Dr. Toro Podiatry will continue to follow while in house
[2017-03-26] MEDS: Enoxaparin 40 mg Syringe SC SCH (08:18)
[2017-03-26] MEDS: Insulin NPH Human 100 Units/ml Inj SC SCH (08:20)
[2017-03-26] MEDS: cefTRIAXone 2 GM in Sodium Chloride 0.9% 100 ML IVPB SCH (08:21)
[2017-03-26] MEDS: Santyl Collagenase OINTMENT TOP SCH (08:22)
--- NOTE | 2017-03-26 13:36 | CP.PCM.DIS ---
Provider - Provider Date of Admission: 03/17/17 16:33 Attending physician: Luz Maria Zapata MD Consults: Podiatry consulted, Dr. Felix BRIDGES consulted, Dr. Martínez Time Spent in preparation of Discharge (in minutes): 30 Diagnosis - Discharge Diagnosis (1) Diabetic foot ulcer with osteomyelitis Status: Acute Priority: High Comment: c/w ceftriaaxone x 6 weeks. F/U with Podiatry clinic and PMD (2) Uncontrolled diabetes mellitus Status: Chronic Priority: High Comment: improving.C/W current treatment (3) HTN (hypertension) Status: Chronic Priority: Medium Comment: controlled (4) HLD (hyperlipidemia) Status: Chronic (5) PICC (peripherally inserted central catheter) in place Status: Acute Comment: Single lumen picc placement right basilic vein, 39 cm. Tip in the SVC as per IR doctor. Hospital Course - Lab Results Lab Results: Micro Results 03/17/17 17:43 Blood Blood Culture - Final NO GROWTH AFTER 5 DAYS 03/17/17 17:43 Blood Gram Stain - Final TEST NOT PERFORMED Most Recent Lab Values WBC 7.1 K/uL (4.8-10.8) 03/23/17 06:01 RBC 4.59 Mil/uL (4.40-5.90) 03/23/17 06:01 Hgb 12.5 g/dL (12.0-18.0) 03/23/17 06:01 Hct 38.8 % (35.0-51.0) 03/23/17 06:01 MCV 84.5 fl (80.0-94.0) 03/23/17 06:01 MCH 27.2 pg (27.0-31.0) 03/23/17 06:01 MCHC 32.2 g/dL (33.0-37.0) L 03/23/17 06:01 RDW 13.5 % (11.5-14.5) 03/23/17 06:01 Plt Count 190 K/uL (130-400) 03/23/17 06:01 MPV 10.9 fl (7.2-11.7) 03/17/17 15:29 Neut % (Auto) 65.4 % (50.0-75.0) 03/17/17 15:29 Lymph % (Auto) 23.6 % (20.0-40.0) 03/17/17 15:29 [place] % (Auto) 7.2 % (0.0-10.0) 03/17/17 15:29 Eos % (Auto) 3.0 % (0.0-4.0) 03/17/17 15:29 Baso % (Auto) 0.8 % (0.0-2.0) 03/17/17 15:29 Neut # 5.0 K/uL (1.8-7.0) 03/17/17 15:29 Lymph # 1.8 K/uL (1.0-4.3) 03/17/17 15:29 [place] # 0.5 K/uL (0.0-0.8) 03/17/17 15: Eos # 0.2 K/uL (0.0-0.7) 03/17/17 15: Baso # 0.1 K/uL (0.0-0.2) 03/17/17 15:29 ESR 39 mm/hr (0-15) H 03/18/17 10:00 PT 11.6 Seconds (9.8-13.1) 03/21/17 05:00 INR 1.1 (0.9-1.2) 03/21/17 05:00 APTT 33.5 Seconds (25.6-37.1) 03/21/17 05:00 pCO2 42 mm/Hg (35-45) 03/17/17 17:15 pO2 42 mm/Hg (30-55) 03/17/17 19:40 HCO3 25.7 mmol/L (21-28) 03/17/17 17:15 ABG pH 7.40 (7.35-7.45) 03/17/17 17:15 ABG Total CO2 27.3 mmol/L (22-28) 03/17/17 17:15 ABG O2 Saturation 96.1 % (95-98) 03/17/17 17:15 ABG Base Excess 1.0 mmol/L (-2.0-3.0) 03/17/17 17:15 Vinicio Test Yes 03/17/17 17:15 ABG Potassium 3.9 mmol/L (3.6-5.2) 03/17/17 17:15 VBG pH 7.39 (7.32-7.43) 03/17/17 19:40 VBG pCO2 44 mmHg (40-60) 03/17/17 19:40 VBG HCO3 25.3 mmol/L 03/17/17 19:40 VBG Total CO2 28.0 mmol/L (22-28) 03/17/17 19:40 VBG O2 Sat (Calc) 82.5 % (40-65) H 03/17/17 19:40 VBG Base Excess 1.2 mmol/L (0.0-2.0) 03/17/17 19:40 VBG Potassium 3.7 mmol/L (3.6-5.2) 03/17/17 19:40 A-a O2 Difference 53.0 mm/Hg 03/17/17 19:40 Sodium 132.0 mmol/L (132-148) 03/17/17 19:40 Chloride 104.0 mmol/L (98-107) 03/17/17 19:40 Glucose 314 mg/dL (75-110) H 03/17/17 19:40 Lactate 1.7 mmol/L (0.7-2.1) 03/17/17 19:40 FiO2 21.0 % 03/17/17 19:40 Crit Value Called To Erica hollis 03/17/17 19:40 Crit Value Called By 23 03/17/17 19:40 Crit Value Read Back Y 03/17/17 19:40 Blood Gas Notified Time 194603/17/17 19:40 Sodium 142 mmol/l (132-148) 03/24/17 06:15 Potassium 3.5 MMOL/L (3.6-5.0) L 03/24/17 06:15 Chloride 104 mmol/L (98-107) 03/24/17 06:15 Carbon Dioxide 29 mmol/L (22-30) 03/24/17 06:15 Anion Gap 13 (10-20) 03/24/17 06:15 BUN 9 mg/dl (9-20) 03/24/17 06:15 Creatinine 0.5 mg/dL (0.8-1.5) L 03/24/17 06:15 Est GFR ( Amer) > 60 03/24/17 06:15 Est GFR (Non-Af Amer) > 60 03/24/17 06:15 POC Glucose (mg/dL) 227 mg/dL (65-110) H 03/26/17 10:58 Random Glucose 97 mg/dL (75-110) 03/24/17 06:15 Hemoglobin A1c 13.0 % (4.2-6.5) H D 03/18/17 04:25 Serum Osmolality 318 mosm/kg (272-300) H 03/17/17 15:29 Calcium 8.6 mg/dL (8.4-10.2) 03/24/17 06:15 Phosphorus 3.2 mg/dl (2.5-4.5) 03/18/17 04:25 Magnesium 1.7 MG/DL (1.6-2.3) 03/18/17 04:25 Total Bilirubin 0.6 mg/dl (0.2-1.3) 03/18/17 04:25 AST 58 U/L (17-59) 03/18/17 04:25 ALT 100 U/L (21-72) H 03/18/17 04:25 Alkaline Phosphatase 75 U/L (38-126) 03/18/17 04:25 Total Protein 6.4 G/DL (6.3-8.2) 03/18/17 04:25 Albumin 3.3 g/dL (3.5-5.0) L 03/18/17 04:25 Globulin 3.1 gm/dL (2.2-3.9) 03/18/17 04:25 Albumin/Globulin Ratio 1.1 (1.0-2.1) 03/18/17 04:25 Triglycerides 262 mg/DL (0-149) H D 03/18/17 04:25 Cholesterol 141 mg/dL (0-199) 03/18/17 04:25 LDL Cholesterol Direct 74 mg/dL (0-129) 03/18/17 04:25 HDL Cholesterol 25 MG/DL (30-70) L 03/18/17 04:25 Arterial Blood Potassium 3.9 mmol/L (3.6-5.2) 03/17/17 17:15 Venous Blood Potassium 3.7 mmol/L (3.6-5.2) 03/17/17 19:40 Vancomycin Trough 9.1 ug/mL (5.0-10.0) 03/24/17 06:15 - Hospital Course Hospital Course: 42 yo, m, PMhx/o DM, HTN, hypercholesterolemia admitted initially for left foot ulceration, cellulitis and uncontrolled diabetes mellitus. During admission MRI was done and showed suspicious findings of OM, advanced charcot arthopathy. Patient is now s/p resection of left foot 5th proximal phalangeal base and metatarsal head on POD #4 (03/22/17). During admission ID was consulted for IV antibiotics recommendations for OM management. Initially patient - Date & Time of H&P Date of H&P: 03/17/17 Time of H&P: 13:00 Discharge Exam - Head Exam Head Exam: ATRAUMATIC, NORMOCEPHALIC - Eye Exam Eye Exam: Normal appearance - ENT Exam ENT Exam: Mucous Membranes Moist - Respiratory Exam Respiratory Exam: Clear to PA & Lateral, NORMAL BREATHING PATTERN - Cardiovascular Exam Cardiovascular Exam: REGULAR RHYTHM, +S1, +S2 - GI/Abdominal Exam GI & Abdominal Exam: Normal Bowel Sounds, Soft. absent: Distended, Guarding, Tenderness - Extremities Exam Extremities exam: normal inspection Additional comments: no calves tenderness, no edema in lower extremities noted - Neurological Exam Neurological exam: Alert, Normal Gait, Oriented x3 - Psychiatric Exam Psychiatric exam: Normal Affect, Normal Mood - Skin Skin Exam: Dry, Intact, Normal Color Discharge Plan - Discharge Medications Prescriptions: amLODIPine [Norvasc] 5 mg PO DAILY #30 tab Atorvastatin [Lipitor] 20 mg PO HS #30 tab Ceftriaxone Sodium [Ceftriaxone] 2 gm IV DAILY #42 vial.port GlipiZIDE [Glucotrol] 10 mg PO BIDAC #60 tab Insulin Human NPH [Humulin N] 7 units SC Q12 #1 vial Lisinopril [Zestril] 20 mg PO DAILY #30 tab - Follow Up Plan Condition: GOOD Disposition: HOME/ ROUTINE Patient education suggested?: Yes Instructions: Cellulitis (DC), Diabetic Foot Care (DC), Diabetes Mellitus Type 2 in Adults (DC), Peripherally Inserted Central Catheters and Midline Catheters (DC) Additional Instructions: terell en la clinica en [place] el 15 septiembre a las 3pm. Referrals: [facility] [place] [Outside] [facility] [Outside]
--- NOTE | 2017-03-26 20:39 | CP.PCM.DIS ---
Provider - Provider Date of Admission: 03/17/17 16:33 Attending physician: Luz Maria Zapata MD Consults: Podiatry consulted, Dr. Felix BRIDGES consulted, Dr. Martínez Time Spent in preparation of Discharge (in minutes): 30 Diagnosis - Discharge Diagnosis (1) Diabetic foot ulcer with osteomyelitis Status: Acute Priority: High Comment: c/w ceftriaxone x 6 weeks. F/U with Podiatry clinic and PMD (2) PICC (peripherally inserted central catheter) in place Status: Acute Comment: Single lumen picc placement right basilic vein, 39 cm. Tip in the SVC as per IR doctor. (3) Uncontrolled diabetes mellitus Status: Chronic Priority: High Comment: improving.C/W current treatment (4) HTN (hypertension) Status: Chronic Priority: Medium Comment: controlled (5) HLD (hyperlipidemia) Status: Chronic Hospital Course - Lab Results Lab Results: Micro Results 03/17/17 17:43 Blood Blood Culture - Final NO GROWTH AFTER 5 DAYS 03/17/17 17:43 Blood Gram Stain - Final TEST NOT PERFORMED Most Recent Lab Values WBC 7.1 K/uL (4.8-10.8) 03/23/17 06:01 RBC 4.59 Mil/uL (4.40-5.90) 03/23/17 06:01 Hgb 12.5 g/dL (12.0-18.0) 03/23/17 06:01 Hct 38.8 % (35.0-51.0) 03/23/17 06:01 MCV 84.5 fl (80.0-94.0) 03/23/17 06:01 MCH 27.2 pg (27.0-31.0) 03/23/17 06:01 MCHC 32.2 g/dL (33.0-37.0) L 03/23/17 06:01 RDW 13.5 % (11.5-14.5) 03/23/17 06:01 Plt Count 190 K/uL (130-400) 03/23/17 06:01 MPV 10.9 fl (7.2-11.7) 03/17/17 15:29 Neut % (Auto) 65.4 % (50.0-75.0) 03/17/17 15:29 Lymph % (Auto) 23.6 % (20.0-40.0) 03/17/17 15:29 [place] % (Auto) 7.2 % (0.0-10.0) 03/17/17 15:29 Eos % (Auto) 3.0 % (0.0-4.0) 03/17/17 15:29 Baso % (Auto) 0.8 % (0.0-2.0) 03/17/17 15:29 Neut # 5.0 K/uL (1.8-7.0) 03/17/17 15:29 Lymph # 1.8 K/uL (1.0-4.3) 03/17/17 15: [place] # 0.5 K/uL (0.0-0.8) 03/17/17 15: Eos # 0.2 K/uL (0.0-0.7) 03/17/17 15: Baso # 0.1 K/uL (0.0-0.2) 03/17/17 15: ESR 39 mm/hr (0-15) H 03/18/17 10:00 PT 11.6 Seconds (9.8-13.1) 03/21/17 05:00 INR 1.1 (0.9-1.2) 03/21/17 05:00 APTT 33.5 Seconds (25.6-37.1) 03/21/17 05:00 pCO2 42 mm/Hg (35-45) 03/17/17 17:15 pO2 42 mm/Hg (30-55) 03/17/17 19:40 HCO3 25.7 mmol/L (21-28) 03/17/17 17:15 ABG pH 7.40 (7.35-7.45) 03/17/17 17:15 ABG Total CO2 27.3 mmol/L (22-28) 03/17/17 17:15 ABG O2 Saturation 96.1 % (95-98) 03/17/17 17:15 ABG Base Excess 1.0 mmol/L (-2.0-3.0) 03/17/17 17:15 Vinicio Test Yes 03/17/17 17:15 ABG Potassium 3.9 mmol/L (3.6-5.2) 03/17/17 17:15 VBG pH 7.39 (7.32-7.43) 03/17/17 19:40 VBG pCO2 44 mmHg (40-60) 03/17/17 19:40 VBG HCO3 25.3 mmol/L 03/17/17 19:40 VBG Total CO2 28.0 mmol/L (22-28) 03/17/17 19:40 VBG O2 Sat (Calc) 82.5 % (40-65) H 03/17/17 19:40 VBG Base Excess 1.2 mmol/L (0.0-2.0) 03/17/17 19:40 VBG Potassium 3.7 mmol/L (3.6-5.2) 03/17/17 19:40 A-a O2 Difference 53.0 mm/Hg 03/17/17 19:40 Sodium 132.0 mmol/L (132-148) 03/17/17 19:40 Chloride 104.0 mmol/L (98-107) 03/17/17 19:40 Glucose 314 mg/dL (75-110) H 03/17/17 19:40 Lactate 1.7 mmol/L (0.7-2.1) 03/17/17 19:40 FiO2 21.0 % 03/17/17 19:40 Crit Value Called To Erica hollis 03/17/17 19:40 Crit Value Called By 23 03/17/17 19:40 Crit Value Read Back Y 03/17/17 19:40 Blood Gas Notified Time 194603/17/17 19:40 Sodium 142 mmol/l (132-148) 03/24/17 06:15 Potassium 3.5 MMOL/L (3.6-5.0) L 03/24/17 06:15 Chloride 104 mmol/L (98-107) 03/24/17 06:15 Carbon Dioxide 29 mmol/L (22-30) 03/24/17 06:15 Anion Gap 13 (10-20) 03/24/17 06:15 BUN 9 mg/dl (9-20) 03/24/17 06:15 Creatinine 0.5 mg/dL (0.8-1.5) L 03/24/17 06:15 Est GFR ( Amer) > 60 03/24/17 06:15 Est GFR (Non-Af Amer) > 60 03/24/17 06:15 POC Glucose (mg/dL) 227 mg/dL (65-110) H 03/26/17 10:58 Random Glucose 97 mg/dL (75-110) 03/24/17 06:15 Hemoglobin A1c 13.0 % (4.2-6.5) H D 03/18/17 04:25 Serum Osmolality 318 mosm/kg (272-300) H 03/17/17 15:29 Calcium 8.6 mg/dL (8.4-10.2) 03/24/17 06:15 Phosphorus 3.2 mg/dl (2.5-4.5) 03/18/17 04:25 Magnesium 1.7 MG/DL (1.6-2.3) 03/18/17 04:25 Total Bilirubin 0.6 mg/dl (0.2-1.3) 03/18/17 04:25 AST 58 U/L (17-59) 03/18/17 04:25 ALT 100 U/L (21-72) H 03/18/17 04:25 Alkaline Phosphatase 75 U/L (38-126) 03/18/17 04:25 Total Protein 6.4 G/DL (6.3-8.2) 03/18/17 04:25 Albumin 3.3 g/dL (3.5-5.0) L 03/18/17 04:25 Globulin 3.1 gm/dL (2.2-3.9) 03/18/17 04:25 Albumin/Globulin Ratio 1.1 (1.0-2.1) 03/18/17 04:25 Triglycerides 262 mg/DL (0-149) H D 03/18/17 04:25 Cholesterol 141 mg/dL (0-199) 03/18/17 04:25 LDL Cholesterol Direct 74 mg/dL (0-129) 03/18/17 04:25 HDL Cholesterol 25 MG/DL (30-70) L 03/18/17 04:25 Arterial Blood Potassium 3.9 mmol/L (3.6-5.2) 03/17/17 17:15 Venous Blood Potassium 3.7 mmol/L (3.6-5.2) 03/17/17 19:40 Vancomycin Trough 9.1 ug/mL (5.0-10.0) 03/24/17 06:15 - Hospital Course Hospital Course: 42 yo, m, PMhx/o DM, HTN, hypercholesterolemia admitted initially for left foot ulceration, cellulitis and uncontrolled diabetes mellitus. During admission MRI was done and showed suspicious findings of OM, advanced charcot arthopathy. Patient is now s/p resection of left foot 5th proximal phalangeal base and metatarsal head on POD #4 (03/22/17). During admission ID was consulted for IV antibiotics recommendations for OM management. Initially patient was managed with Vancomycin and Ancef as per ID recommendation. PICC line was placed in right arm by IR doctor. Patient tolerated surgery and PICCline placement well, and without reported complications. Patient is going to be discharge today in IV Ceftriaxone 2 GM daily for 6 weeks as per ID. [employer] site manager set up infusion center for IV abx. Also during admission daily wound care was provided by Podiatry team, and they will make an appointment for Podiatry clinic for f/u as outpatient. Patient was noted to have uncontrolled DM, with elevated HgbA1C, home meds were re-assumed, frequency was adjusted, and insulin NPH was started. BSL improved and no hypoglycemic events were reported. Patient will f/u with PMD at [facility] on 04/05/17 and with Podiatry clinic for schedule wound care. Home medications amLODIPine [Norvasc] 5 mg PO DAILY Atorvastatin [Lipitor] 20 mg PO HS Ceftriaxone Sodium [Ceftriaxone] 2 gm IV DAILY for 6 weeks GlipiZIDE [Glucotrol] 10 mg PO BID AC Insulin Human NPH [Humulin N] 7 units SC Q12 Lisinopril [Zestril] 20 mg PO DAILY Tylenol 650 mg Q 4-6 hours PRN Metformin 1000 mg PO BID PICC line to be removed after last dose of IV antibiotic. Prescription given Prescription for weekly labs given as ID recommendation: CBC, CMP, CPR, ESR Prescription with alcohol pads, insulin syringes, lancets, and strips given - Date & Time of H&P Date of H&P: 03/17/17 Time of H&P: 19:25 Discharge Exam - Head Exam Head Exam: ATRAUMATIC, NORMOCEPHALIC - Additional Findings Additional findings: Head Exam Head Exam: ATRAUMATIC, NORMOCEPHALIC - Eye Exam Eye Exam: Normal appearance - ENT Exam ENT Exam: Mucous Membranes Moist - Respiratory Exam Respiratory Exam: Clear to PA & Lateral, NORMAL BREATHING PATTERN - Cardiovascular Exam Cardiovascular Exam: REGULAR RHYTHM, +S1, +S2 - GI/Abdominal Exam GI & Abdominal Exam: Normal Bowel Sounds, Soft. absent: Distended, Guarding, Tenderness - Extremities Exam Extremities exam: normal inspection Additional comments: no calves tenderness, no edema in lower extremities noted - Neurological Exam Neurological exam: Alert, Normal Gait, Oriented x3 - Psychiatric Exam Psychiatric exam: Normal Affect, Normal Mood - Skin Skin Exam: Dry, Intact, Normal Color Discharge Plan - Discharge Medications Prescriptions: amLODIPine [Norvasc] 5 mg PO DAILY #30 tab Atorvastatin [Lipitor] 20 mg PO HS #30 tab Ceftriaxone Sodium [Ceftriaxone] 2 gm IV DAILY #42 vial.port GlipiZIDE [Glucotrol] 10 mg PO BIDAC #60 tab Insulin Human NPH [Humulin N] 7 units SC Q12 #1 vial Lisinopril [Zestril] 20 mg PO DAILY #30 tab - Follow Up Plan Condition: GOOD Disposition: HOME/ ROUTINE Instructions: Cellulitis (DC), Diabetic Foot Care (DC), Diabetes Mellitus Type 2 in Adults (DC), Peripherally Inserted Central Catheters and Midline Catheters (DC) Additional Instructions: terell en la clinica en [place] el 15 septiembre a las 3pm. Referrals: [facility] [place] [Outside] [facility] [Outside]
== END 2017-03-26 15:18 | disposition home or self-care (01) | DRG 565 ==
LOC: H.ER 14:52 → H.ERHOLD 16:33 → H.TEL 21:11 → H.MEDSURG1 03-21 20:14 → UNDODISIN 03-25 16:40
PROVIDERS: ADMIT Emergency Medicine; ATTEND Emergency Medicine
PROC: 02HV33Z Insertion of Infusion Device into Superior Vena Cava, Percutaneous Approach (ICD-10-PCS; 2017-03-20)
PROC: B518ZZA Fluoroscopy of Superior Vena Cava, Guidance (ICD-10-PCS; 2017-03-20)
PROC: B548ZZA Ultrasonography of Superior Vena Cava, Guidance (ICD-10-PCS; 2017-03-20)
PROC: 0QBP0ZZ Excision of Left Metatarsal, Open Approach (ICD-10-PCS; principal; 2017-03-22 15:00)
DX: E11.69 Type 2 diabetes mellitus with other specified complication (principal); M86.172 Other acute osteomyelitis, left ankle and foot; E11.621 Type 2 diabetes mellitus with foot ulcer; E11.40 Type 2 diabetes mellitus with diabetic neuropathy, unspecified; L03.116 Cellulitis of left lower limb; L97.529 Non-pressure chronic ulcer of other part of left foot with unspecified severity; E86.0 Dehydration; E11.65 Type 2 diabetes mellitus with hyperglycemia; E78.00 Pure hypercholesterolemia, unspecified; E78.5 Hyperlipidemia, unspecified; I10 Essential (primary) hypertension; Z79.84 Long term (current) use of oral hypoglycemic drugs; Z79.899 Other long term (current) drug therapy

== ENCOUNTER 2017-06-03 17:54 | Inpatient (IN) | payer OTHER, SELFPAY ==
[2017-06-03 17:54] VITALS: BMI 41.5
[2017-06-03] MEDS ORDERED: Piperacillin/Tazobact 3.375 GM in Sodium Chloride 0.9% 100 ML IVPB STA (18:38)
--- NOTE | 2017-06-03 18:58 | ED PDOC ---
HPI: General Adult Time Seen by Provider: 06/03/17 18:10 Chief Complaint (Nursing): Lower Extremity Problem/Injury History Per: Patient Additional Complaint(s): Pt. states this morning he developed atraumatic pain and swelling to the R 4th toe. Also reports feeling febrile. Pt. states he does have a hx of DM. Denies trauma, numbness, tingling. 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 Irizarry Past Medical History Vital Signs: Last Vital Signs Temp 100.4 F H 06/03/17 17:58 Pulse 98 H 06/03/17 17:58 Resp 16 06/03/17 17:58 BP 129/91 H 06/03/17 17:58 Pulse Ox 99 06/03/17 19:41 - Medical History PMH: Diabetes (type II, diabetic neuropathy w/in b/l feet, diabetic foot ulcers) , HTN, Hypercholesterolemia Denies: Arthritis, CHF, COPD, CVA, Hepatitis, HIV, Hypothyroidism, Chronic Kidney Disease, Rheumatoid Arthritis, Seizures, Sexually Transmitted Disease - Surgical History Surgical History: Denies: CABG - Family History Family History: States: Diabetes, Hypertension - Immunization History Hx Tetanus Toxoid Vaccination: Yes - Home Medications Home Medications: Ambulatory Orders Medication Instructions Recorded MetFORMIN [glucoPHAGE] 1,000 mg PO BID 04/24/14 Acetaminophen [Tylenol 325mg tab] 650 mg PO Q4 PRN tab 03/26/17 Atorvastatin [Lipitor] 20 mg PO HS #30 tab 03/26/17 Ceftriaxone Sodium [Ceftriaxone] 2 gm IV DAILY #42 vial.port 03/26/17 GlipiZIDE [Glucotrol] 10 mg PO BIDAC #60 tab 03/26/17 Insulin Human NPH [Humulin N] 7 units SC Q12 #1 vial 03/26/17 Lisinopril [Zestril] 20 mg PO DAILY #30 tab 03/26/17 amLODIPine [Norvasc] 5 mg PO DAILY #30 tab 03/26/17 - Allergies Allergies/Adverse Reactions: Allergies Allergy/AdvReac Type Severity Reaction Status Date / Time No Known Allergies Allergy Verified 04/08/17 10:35 Review of Systems ROS Statement: Except As Marked, All Systems Reviewed And Found Negative Physical Exam - Reviewed Nursing Documentation Reviewed: Yes Vital Signs Reviewed: Yes - Physical Exam Appears: Positive for: Well, Non-toxic, No Acute Distress Head Exam: Positive for: ATRAUMATIC, NORMAL INSPECTION, NORMOCEPHALIC Skin: Positive for: Normal Color, Warm. Negative for: Rash Eye Exam: Positive for: EOMI, Normal appearance, PERRL ENT: Positive for: Normal ENT Inspection Neck: Positive for: Normal, Painless ROM Cardiovascular/Chest: Positive for: Regular Rate, Rhythm Respiratory: Positive for: CNT, Normal Breath Sounds Pulses-Dorsalis Pedis (L): 2+ Pulses-Dorsalis Pedis (R): 2+ Gastrointestinal/Abdominal: Positive for: Normal Exam, Bowel Sounds, Soft. Negative for: Tenderness Back: Positive for: Normal Inspection Extremity: Positive for: Normal ROM, Other (R 4th toe moderately swollen with fluctuance and ecchymosis noted) Neurologic/Psych: Positive for: Alert, Oriented - Laboratory Results Result Diagrams: 06/03/17 19:22 06/03/17 19:22 - ECG O2 Sat by Pulse Oximetry: 99 - Progress ED Course And Treament: Labs ordered. Zosyn IV, vancomycin IV, blood culture x 2 ordered. Foot x-ray ordered. 1905 VBG: elevated lactated 3 hr repeat VBG ordered. Podiatry called but pending call back. 0 Case d/w Dr. Hernandez, FP resident, and arrangements made for admission. Disposition - Clinical Impression Clinical Impression: Cellulitis, toe - Patient ED Disposition Is Patient to be Admitted: Transfer of Care (Signed out to Quyen GOMEZ pending podiatry consult) - Disposition Disposition: Routine/Home Disposition Time: 20:00 Condition: STABLE Forms: [employer] (I[place]ic)
[2017-06-03 19:09] LABS: VENOUS BLOOD GAS BASE EXCESS 3.7 mmol/L (0.0-2.0); VENOUS BLOOD GAS PCO2 54 mmHg (40-60); VENOUS BLOOD PH 7.36 (7.32-7.43)
[2017-06-03 19:26] LABS: BASO % 0.3 % (0.0-2.0); EOS # 0.3 K/uL (0.0-0.7); EOS % 2.6 % (0.0-4.0); HEMATOCRIT 41.3 % (35.0-51.0); LYMPH # 2.3 K/uL (1.0-4.3); LYMPH % 21.2 % (20.0-40.0); MEAN CELL VOLUME 84.3 fl (80.0-94.0); MEAN CORPUSCULAR HEMOGLOBIN 27.4 pg (27.0-31.0); MEAN CORPUSCULAR HGB CONC 32.5 g/dL (33.0-37.0); MEAN PLATELET VOLUME 9.4 fl (7.2-11.7); MONO # 0.7 K/uL (0.0-0.8); MONO % 6.7 % (0.0-10.0); NEUT # 7.5 K/uL (1.8-7.0); NEUT % 69.2 % (50.0-75.0); NRBC % 0.1 % (0.0-0.0); RED CELL DISTRIBUTION WIDTH 14.6 % (11.5-14.5); WHITE BLOOD COUNT 10.9 K/uL (4.8-10.8)
[2017-06-03] MEDS ORDERED: Sodium Chloride 0.9% 1,000 ML IV STA (19:27)
[2017-06-03 19:40] LABS: ALB/GLOB RATIO 1.3 (1.0-2.1); ALKALINE PHOSPHATASE 77 U/L (38-126); ALT/SGPT 46 U/L (21-72); AST/SGOT 26 U/L (17-59); BILIRUBIN,TOTAL 0.4 mg/dl (0.2-1.3); BLOOD UREA NITROGEN 16 mg/dl (9-20); CALCIUM 9.2 mg/dL (8.4-10.2); CARBON DIOXIDE 28 mmol/L (22-30); CHLORIDE 102 mmol/L (98-107); GFR AFRICAN-AMERICAN > 60; GLUCOSE,RANDOM 176 mg/dL (75-110); POTASSIUM 4.1 MMOL/L (3.6-5.0); SODIUM 144 mmol/l (132-148); TOTAL PROTEIN 8.1 G/DL (6.3-8.2)
--- NOTE | 2017-06-03 20:22 | ED PDOC ---
- Laboratory Results Result Diagrams: 06/03/17 19:22 06/03/17 19:22 - ECG ECG: Positive for: Viewed By Me (reviewed by ED attending) ECG Rhythm: Positive for: Sinus Rhythm O2 Sat by Pulse Oximetry: 99 - Radiology X-Ray: Viewed By Me X-Ray Interpretation: No Acute Disease - Other Rad xray right foot X-Ray: Viewed By Me X-Ray Interpretation: no acute findings - Progress ED Course And Treament: Case endorsed to curriculum writer from January GOMEZ pending podiatry consult for admission 22:50 Patient evaluated by podiatry resident on-call, agrees with plan to continue Zosyn, and Vanco and will admit for possible I&D. Disposition - Clinical Impression Clinical Impression: Cellulitis and abscess of toe of right foot - POA Present On Arrival: None - Disposition Disposition: Admitted as In-Patient Disposition Time: 20:00 Condition: FAIR
[2017-06-03] MEDS ORDERED: Glucagon Recombinant 1 mg Inj IM PRN (21:39)
[2017-06-03] MEDS ORDERED: Dextrose 50% SYRINGE Inj (50 ml) IV PRN (21:39)
--- NOTE | 2017-06-03 21:48 | CP.PCM.HP ---
History of Present Illness - History of Present Illness History of Present Illness: 42 y/o M with PMHx of DM type 2, HTN, Hypercholesterolemia, recently admitted and treated for left diabetic foot ulcer infection with osteomyelitis, s/p L foot resection of 5th proximal phalangeal base and metatarsal head (following 5th digit proximal phalanx base and metatarsal head osteomyelitis), was discharged on 03/26/17, completed 6 weeks of IV antibiotic ( Ceftriaxone) after discharge, who presents to ED c/o right third toe swelling since last night, getting worse today and associated with redness, and pain with ambulation and weight bearing in right foot. Patient states that yesterday morning he started feeling pain in his right thigh close to his groin area, and he felt a lump to palpation, and at night he noticed that his right middle toe was swollen. Reports subjective fevers and chills since today morning, and mild nausea without any vomit episode. Denies other complains. Patient was recent seen by PMD, Dr. Fair, at [facility] on 05/20/17 who modified his DM regimen. Patient states that he was having hypoglycemic episodes in NPH 5 units AM and PM, Glipizide 10 mg BID, metf 1000 mg BID PMD: [facility], Dr. Fair Blunger Machine Operator: Dr. 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 Solitary painful, superficial right inguinal lymph node. Right calf tender to palpation. labs: CBC, CMP, VBG images: CXR, Foot x ray Podiatry consulted by ED Tx: acetaminophen x fever once, Vanco 1 gm once IV, Zosyn 3.375 gm IV once Present on Admission - Present on Admission Any Indicators Present on Admission: No History of DVT/PE: No History of Uncontrolled Diabetes: Yes Urinary Catheter: No Decubitus Ulcer Present: No Review of Systems - Review of Systems All systems: reviewed and no additional remarkable complaints except (as per HPI ) Past Patient History - Infectious Disease Hx of Infectious Diseases: None - Tetanus Immunizations Tetanus Immunization: Unknown - Past Medical History & Family History Past Medical History?: Yes - Past Social History Smoking Status: Never Smoked - CARDIAC Hx Congestive Heart Failure: No Hx Hypercholesterolemia: Yes Hx Hypertension: Yes - PULMONARY Hx Chronic Obstructive Pulmonary Disease (COPD): No - NEUROLOGICAL Hx Seizures: No - HEENT Hx HEENT Problems: No - RENAL Hx Chronic Kidney Disease: No - ENDOCRINE/METABOLIC Hx Hypothyroidism: No - HEMATOLOGICAL/ONCOLOGICAL Hx Human Immunodeficiency Virus (HIV): No - INTEGUMENTARY Hx Cellulitis: Yes - MUSCULOSKELETAL/RHEUMATOLOGICAL Hx Arthritis: No Hx Rheumatoid Arthritis: No - GASTROINTESTINAL Hx Gastrointestinal Disorders: No - GENITOURINARY/GYNECOLOGICAL Hx Sexually Transmitted Disorders: No - PSYCHIATRIC Hx Psychophysiologic Disorder: No Hx Emotional Abuse: No Hx Physical Abuse: No Hx Substance Use: No - SURGICAL HISTORY Hx Coronary Artery Bypass Graft: No - ANESTHESIA Hx Anesthesia: Yes Hx Anesthesia Reactions: No Hx Malignant Hyperthermia: No Meds Allergies/Adverse Reactions: Allergies Allergy/AdvReac Type Severity Reaction Status Date / Time No Known Allergies Allergy Verified 06/03/17 20:06 Physical Exam - Constitutional Appears: Non-toxic, No Acute Distress - ENT Exam ENT Exam: Mucous Membranes Moist - Respiratory Exam Respiratory Exam: Clear to Auscultation Bilateral, NORMAL BREATHING PATTERN. absent: Rales, Rhonchi, Wheezes, Stridor - Cardiovascular Exam Cardiovascular Exam: REGULAR RHYTHM, RRR, +S1, +S2 - GI/Abdominal Exam GI & Abdominal Exam: Normal Bowel Sounds, Soft. absent: Guarding, Rigid, Tenderness - Extremities Exam Extremities exam: Positive for: calf tenderness (mild tender to palpation of right calf, left calf no tender to palpation). Negative for: pedal edema Additional comments: Right 3rd toe: swollen, erythematous, large blister filled with clear fluid, with associated purple discoloration and fluctuance. Solitary painful, superficial right inguinal lymph node. - Back Exam Back exam: NORMAL INSPECTION. absent: CVA tenderness (L), CVA tenderness (R) - Neurological Exam Neurological exam: Alert, Oriented x3 - Psychiatric Exam Psychiatric exam: Normal Affect, Normal Mood - Skin Skin Exam: Dry, Intact, Normal Color Results - Vital Signs Recent Vital Signs: Last Vital Signs Temp 100.4 F H 06/03/17 17:58 Pulse 98 H 06/03/17 17:58 Resp 16 06/03/17 17:58 BP 129/91 H 06/03/17 17:58 Pulse Ox 99 06/03/17 20:22 - Labs Result Diagrams: 06/03/17 19:22 06/03/17 19:22 Labs: Laboratory Results - last 24 hr 06/03/17 06/03/17 06/03/17 19:06 19:22 19:22 WBC 10.9 H D RBC 4.90 Hgb 13.4 Hct 41.3 MCV 84.3 MCH 27.4 MCHC 32.5 L RDW 14.6 H Plt Count 200 MPV 9.4 Neut % (Auto) 69.2 Lymph % (Auto) 21.2 [place] % (Auto) 6.7 Eos % (Auto) 2.6 Baso % (Auto) 0.3 Neut # 7.5 H Lymph # 2.3 [place] # 0.7 Eos # 0.3 Baso # 0.0 pO2 22 L VBG pH 7.36 VBG pCO2 54 VBG HCO3 26.1 VBG Total CO2 32.2 H VBG O2 Sat (Calc) 42.0 VBG Base Excess 3.7 H VBG Potassium 4.1 Sodium 140.0 144 Chloride 102.0 102 Glucose 189 H Lactate 2.4 H FiO2 21.0 Potassium 4.1 Carbon Dioxide 28 Anion Gap 18 BUN 16 Creatinine 0.6 L Est GFR ( Amer) > 60 Est GFR (Non-Af Amer) > 60 Random Glucose 176 H Calcium 9.2 Total Bilirubin 0.4 AST 26 ALT 46 Alkaline Phosphatase 77 Total Protein 8.1 Albumin 4.5 Globulin 3.6 Albumin/Globulin Ratio 1.3 Venous Blood Potassium 4.1 Assessment & Plan - Assessment and Plan (Free Text) Assessment: 42 y/o M with PMHx of DM type 2, HTN, Hypercholesterolemia, s/p resection of left foot 5th proximal phalangeal base and metatarsal head being admitted for right foot cellulitis and possible abscess. Plan: Right foot cellulitis -R/o Abscess -MedSurg unit -low grade fever on admission, slightly tachyc -mild leukocytosis 10.9 -c/w antibiotics IV: vanco and zosyn for empiric wide coverage -f/u lactic acid -f/u right foot x ray -f/u Blood Cx -f/u CBC in AM -Tylenol 650 mg Q6 PRN for fever -f/u Vein dupplex US of Dawna to chek for DVT ( c/o calf pain) -lactate in VBG was 2.4 -Podiatry consult appreciated,Awaiting for evaluation, f/u recommendations -consider ID consult as needed because recent long course of abx In prior admission wound cultures of left foot showed Staph Aureus, but not MRSA, and as per ID, Dr. Martínez, patient was discharged in Ceftriaxone 2 GM IV daily for 6 weeks, which was received at [facility] by PICC line as outpatient . Diabetes Mellitus type 2 -Continue with current modified DM treatment as per PMD. As per patient he was having hypoglycemic episodes on M regimen that he was discharged with. -C/w Metformin 100 mg BID PO -c/w Glipizide 5 mg before lunch -c/w NPH insulin 4 units SC at bedtime -accucheck ACHS -diabetic diet -Hypoglycemic protocol -last HgbA1C on 03/18/17 was 13.0 HTN -c/w Lisinopril 20 mg PO daily as per last admission -c/w amlodipine 5 mg PO daily as per last admission DVT prophylaxis Lovenox 40 mg SC - Date & Time Date: 06/03/17 Time: 19:50
[2017-06-03 22:26] LABS: VENOUS BLOOD GAS BASE EXCESS 3.5 mmol/L (0.0-2.0); VENOUS BLOOD GAS PCO2 47 mmHg (40-60)
--- NOTE | 2017-06-03 23:22 | CP.PCM.CON ---
History of Present Illness - History of Present Illness History of Present Illness: 42 year old male patient seen in ED complaining of painful, swollen right third digit. Patient states that he first noticed the changes in his digit yesterday afternoon. He is a known patient of Dr. Irizarry'teetee with a history of OM and bone resection. Patient is AAO x 3 and NAD resting comfortably in bed. Denies any further pedal complaints at this time. Denies N/V/F/C/CP/SOB Review of Systems - Review of Systems Review of Systems: ROS unremarkable outsdie of HPI Past Patient History - Infectious Disease Hx of Infectious Diseases: None - Tetanus Immunizations Tetanus Immunization: Unknown - Past Medical History & Family History Past Medical History?: Yes - Past Social History Smoking Status: Never Smoked - CARDIAC Hx Congestive Heart Failure: No Hx Hypercholesterolemia: Yes Hx Hypertension: Yes - PULMONARY Hx Chronic Obstructive Pulmonary Disease (COPD): No - NEUROLOGICAL Hx Seizures: No - HEENT Hx HEENT Problems: No - RENAL Hx Chronic Kidney Disease: No - ENDOCRINE/METABOLIC Hx Hypothyroidism: No - HEMATOLOGICAL/ONCOLOGICAL Hx Human Immunodeficiency Virus (HIV): No - INTEGUMENTARY Hx Cellulitis: Yes - MUSCULOSKELETAL/RHEUMATOLOGICAL Hx Arthritis: No Hx Rheumatoid Arthritis: No - GASTROINTESTINAL Hx Gastrointestinal Disorders: No - GENITOURINARY/GYNECOLOGICAL Hx Sexually Transmitted Disorders: No - PSYCHIATRIC Hx Psychophysiologic Disorder: No Hx Emotional Abuse: No Hx Physical Abuse: No Hx Substance Use: No - SURGICAL HISTORY Hx Coronary Artery Bypass Graft: No - ANESTHESIA Hx Anesthesia: Yes Hx Anesthesia Reactions: No Hx Malignant Hyperthermia: No Meds Allergies/Adverse Reactions: Allergies Allergy/AdvReac Type Severity Reaction Status Date / Time No Known Allergies Allergy Verified 06/03/17 20:06 - Medications Medications: Current Medications Acetaminophen (Tylenol 325mg Tab) 650 mg PO Q6 PRN PRN Reason: Fever >100.4 F Amlodipine Besylate (Norvasc) 5 mg PO DAILY [facility] Atorvastatin Calcium (Lipitor) 20 mg PO HS [facility] Dextrose (Dextrose 50% Inj) 0 ml IV STAT PRN; Protocol PRN Reason: Hypoglycemia Protocol Dextrose (Glutose 15) 0 gm PO ONCE PRN; Protocol PRN Reason: Hypoglycemia Protocol Enoxaparin Sodium (Lovenox) 40 mg SC DAILY [facility] PRN Reason: Protocol Glipizide (Glucotrol) 5 mg PO AC [facility] Glucagon (Glucagen Diagnostic Kit) 0 mg IM STAT PRN; Protocol PRN Reason: Hypoglycemia Protocol Insulin Human NPH (Humulin N) 4 units SC HS [facility] Lisinopril (Zestril) 20 mg PO DAILY [facility] Metformin HCl (Glucophage) 1,000 mg PO BID [facility] Physical Exam - Constitutional Appears: Well, Non-toxic, No Acute Distress - Extremities Exam Additional comments: LE focused exam: Vasc: DP/PT pulses palpable 2/4 b/l. Skin temperature warm to warm from proximal to distal. CFT < 3 seconds. Edematous right third digit noted Neuro: Epicrtic and protective sensation grossly diminished b/l Derm: Callus formation noted to distal right third digit. Right third digit is highly edematous with fluctuance noted distally. Deep purple coloration indicates possible hematoma vs. abscess formation in deep tissue. No open lesions, wounds, maceration, xerosis, abnormal growths noted MSK: Minimal POP to distal third digit of right foot - Neurological Exam Neurological exam: Alert, Oriented x3 - Psychiatric Exam Psychiatric exam: Normal Affect, Normal Mood Results - Vital Signs Recent Vital Signs: Last Vital Signs Temp 100.4 F H 06/03/17 17:58 Pulse 98 H 06/03/17 17:58 Resp 16 06/03/17 17:58 BP 129/91 H 06/03/17 17:58 Pulse Ox 99 06/03/17 23:11 - Labs Result Diagrams: 06/03/17 19:22 06/03/17 19:22 Labs: Laboratory Results - last 24 hr 06/03/17 06/03/17 06/03/17 19:06 19:22 19:22 WBC 10.9 H D RBC 4.90 Hgb 13.4 Hct 41.3 MCV 84.3 MCH 27.4 MCHC 32.5 L RDW 14.6 H Plt Count 200 MPV 9.4 Neut % (Auto) 69.2 Lymph % (Auto) 21.2 [place] % (Auto) 6.7 Eos % (Auto) 2.6 Baso % (Auto) 0.3 Neut # 7.5 H Lymph # 2.3 [place] # 0.7 Eos # 0.3 Baso # 0.0 pO2 22 L VBG pH 7.36 VBG pCO2 54 VBG HCO3 26.1 VBG Total CO2 32.2 H VBG O2 Sat (Calc) 42.0 VBG Base Excess 3.7 H VBG Potassium 4.1 Sodium 140.0 144 Chloride 102.0 102 Glucose 189 H Lactate 2.4 H FiO2 21.0 Potassium 4.1 Carbon Dioxide 28 Anion Gap 18 BUN 16 Creatinine 0.6 L Est GFR ( Amer) > 60 Est GFR (Non-Af Amer) > 60 Random Glucose 176 H Calcium 9.2 Total Bilirubin 0.4 AST 26 ALT 46 Alkaline Phosphatase 77 Total Protein 8.1 Albumin 4.5 Globulin 3.6 Albumin/Globulin Ratio 1.3 Venous Blood Potassium 4.1 06/03/17 22:23 WBC RBC Hgb Hct MCV MCH MCHC RDW Plt Count MPV Neut % (Auto) Lymph % (Auto) [place] % (Auto) Eos % (Auto) Baso % (Auto) Neut # Lymph # [place] # Eos # Baso # pO2 22 L VBG pH 7.40 VBG pCO2 47 VBG HCO3 26.0 VBG Total CO2 30.5 H VBG O2 Sat (Calc) 45.8 VBG Base Excess 3.5 H VBG Potassium 4.2 Sodium 140.0 Chloride 106.0 Glucose 212 H Lactate 1.2 FiO2 21.0 Potassium Carbon Dioxide Anion Gap BUN Creatinine Est GFR ( Amer) Est GFR (Non-Af Amer) Random Glucose Calcium Total Bilirubin AST ALT Alkaline Phosphatase Total Protein Albumin Globulin Albumin/Globulin Ratio Venous Blood Potassium 4.2 Assessment & Plan - Assessment and Plan (Free Text) Assessment: 42 year old male seen in ED for diabetic foot infection at right third digit Plan: Patient seen and evaluated in ED Charts, labs and vitals reviewed: WBC 10.9, temp: 100.4 on arrival Plan discussed with attending Dr. Irizarry Xrays reviewed: No signs of OM or gas at this time Patient to be admitted to hospital floors on vanc/zosyn Bedside I and D with cultures to be performed tomorrow Podiatry will continue to follow while patient in house - Date & Time Date: 06/03/17 Time: 23:33
[2017-06-03] MEDS ORDERED: Insulin Regular 100 units/ml ONE (23:51)
[2017-06-04] MEDS: Insulin NPH Human 100 Units/ml Inj SC SCH ×2 (00:12→21:59)
[2017-06-04] MEDS: Piperacillin/Tazobact 3.375 GM in Sodium Chloride 0.9% 100 ML IVPB SCH ×4 (04:28→21:56)
[2017-06-04 06:06] LABS: BASO % 0.2 % (0.0-2.0); EOS # 0.4 K/uL (0.0-0.7); EOS % 3.7 % (0.0-4.0); LYMPH # 3.2 K/uL (1.0-4.3); LYMPH % 30.2 % (20.0-40.0); MEAN CELL VOLUME 84.3 fl (80.0-94.0); MEAN CORPUSCULAR HEMOGLOBIN 27.5 pg (27.0-31.0); MEAN CORPUSCULAR HGB CONC 32.7 g/dL (33.0-37.0); MEAN PLATELET VOLUME 9.5 fl (7.2-11.7); MONO # 1.2 K/uL (0.0-0.8); MONO % 11.3 % (0.0-10.0); NEUT # 5.7 K/uL (1.8-7.0); NEUT % 54.6 % (50.0-75.0); RED CELL DISTRIBUTION WIDTH 14.9 % (11.5-14.5); WHITE BLOOD COUNT 10.5 K/uL (4.8-10.8)
--- NOTE | 2017-06-04 08:17 | CP.PCM.PN ---
Subjective - Date & Time of Evaluation Date of Evaluation: 06/04/17 Time of Evaluation: 08:10 - Subjective Subjective: Progress Note for Family Medicine- Dr. Choudhary 42 y.o M with PMHx of DM Type II, HTN, Hypercholesterolemia seen at bedside for swollen right 3rd digit. Patient is seen resting comfortably in bed, in NAD, and AAOx3. Patient reports that he is doing much better today. He reports no pain at the lower extremity or calf today. He denies acute events overnight. Reports he no longer has chills s/p medications given in the ED. He denies n/v/ sob/cp/chills/f. He denies calf tenderness bilaterally. Objective - Vital Signs/Intake and Output Vital Signs (last 24 hours): Temp Pulse Resp BP Pulse Ox 98.7 F 67 18 111/67 97 06/04/17 04:53 06/04/17 04:53 06/04/17 04:53 06/04/17 04:53 06/04/17 04:53 - Medications Medications: Current Medications Acetaminophen (Tylenol 325mg Tab) 650 mg PO Q6 PRN PRN Reason: Fever >100.4 F Amlodipine Besylate (Norvasc) 5 mg PO DAILY [facility] Atorvastatin Calcium (Lipitor) 20 mg PO HS [facility] Last Admin: 06/03/17 23:55 Dose: 20 mg Dextrose (Dextrose 50% Inj) 0 ml IV STAT PRN; Protocol PRN Reason: Hypoglycemia Protocol Dextrose (Glutose 15) 0 gm PO ONCE PRN; Protocol PRN Reason: Hypoglycemia Protocol Enoxaparin Sodium (Lovenox) 40 mg SC DAILY [facility] PRN Reason: Protocol Glipizide (Glucotrol) 5 mg PO AC [facility] Glucagon (Glucagen Diagnostic Kit) 0 mg IM STAT PRN; Protocol PRN Reason: Hypoglycemia Protocol Vancomycin HCl 1 gm/ Sodium (Chloride) 250 mls @ 166.667 mls/hr IVPB DAILY [facility] PRN Reason: Protocol Piperacillin Sod/Tazobactam (Sod 3.375 gm/ Sodium Chloride) 100 mls @ 100 mls/ hr IVPB Q6 [facility] PRN Reason: Protocol Last Admin: 06/04/17 04:28 Dose: 100 mls/hr Insulin Human NPH (Humulin N) 4 units SC [facility] Last Admin: 06/04/17 00:12 Dose: 4 units Lisinopril (Zestril) 20 mg PO DAILY [facility] Metformin HCl (Glucophage) 1,000 mg PO BID [facility] Last Admin: 06/03/17 23:55 Dose: 1,000 mg - Labs Labs: 06/04/17 04:25 06/03/17 19:22 - Constitutional Appears: Well, Non-toxic, No Acute Distress - Eye Exam Pupil Exam: Miosis - Respiratory Exam Respiratory Exam: NORMAL BREATHING PATTERN. absent: Accessory Muscle Use, Decreased Breath Sounds, Prolonged Expiratory Phase, Rales, Rhonchi, Wheezes, Respiratory Distress, Stridor - Cardiovascular Exam Cardiovascular Exam: REGULAR RHYTHM, RRR, +S1, +S2 - GI/Abdominal Exam GI & Abdominal Exam: Soft, Normal Bowel Sounds - Extremities Exam Extremities Exam: Normal Capillary Refill, Normal Inspection Additional comments: Vasc: DP and PT 2/4 bilaterally, CFT <3 seconds, temperature gradient WNL from proximal knees to distal toes, localized non-pitting edema noted to the 3rd R digit, no generalized lower extremity bilaterally Ortho: No pain with palpation to the right 3rd digit, elongated R 3rd digit; Very R mild tenderness to the calf with calf squeeze Neuro: protective sensation diminished, gross sensation intact Derm: no open lesions noted to the 3rd right digit, fluctuatance noted with fluid filled abscess noted to the 3rd R digit. Callus seen at the distal 3rd R digit. No increase warmth noted. No maceration between interspaces noted. No drainage, purulence, odor noted - Back Exam Back Exam: NORMAL INSPECTION - Neurological Exam Neurological Exam: Alert, Awake, Oriented x3 - Psychiatric Exam Psychiatric exam: Normal Affect, Normal Mood - Skin Skin Exam: Dry, Intact, Normal Color, Warm Assessment and Plan - Assessment and Plan (Free Text) Assessment: 42 y/o M with PMHx of DM type 2, HTN, Hypercholesterolemia, s/p resection of left foot 5th proximal phalangeal base and metatarsal for right 3rd digit abscess Plan: Right foot -lactate 1.2 today WNL (lactate 2.4 on 06/03/17) -WBC: 10.5 today (WBC 10.9 on 06/03/17) -c/w antibiotics IV: vanco and zosyn for empiric wide coverage -c/w Tylenol 650 mg Q6 PRN for fever -foot X-ray final results. Impression: no interval lytic changes are appreciated with resolution of prominent edema related to the 2nd digit. Increase density seen related to the distal phalanz 2nd digit as well as the distal 2nd metatarsal bone. No acute fracture subluxation or dislocation -venous duplex US report w/ Impression: no DVT, bilaterally inguinal lymphadenopathy, nonspecific, could be reactive, infectious or inflammatory in etiology. Neoplastic etiology such as lymphoma is also consideration. Clinical correlation and followup advised. -will consider ID consult as needed because recent long course of abx In prior admission wound cultures of left foot showed Staph Aureus, but not MRSA, and as per ID, Dr. Martínez, patient was discharged in Ceftriaxone 2 GM IV daily for 6 weeks, which was received at [facility] by PICC line as outpatient . -f/u Blood Cx -ordered ESR in the AM, will f/u -may need MRI right foot to r/o OM Diabetes Mellitus type 2 -continue with current modified DM treatment as per PMD. As per patient he was having hypoglycemic episodes on M regimen that he was discharged with. -c/w Metformin 100 mg BID PO -c/w Glipizide 5 mg before lunch -c/w NPH insulin 4 units SC at bedtime -accucheck ACHS -diabetic diet -hypoglycemic protocol -HgbA1C 13.0 (03/18/17) HTN -c/w Lisinopril 20 mg PO daily -c/w Amlodipine 5 mg PO daily DVT prophylaxis -Lovenox 40 mg SC
[2017-06-04] MEDS: Enoxaparin 40 mg Syringe SC SCH (08:27)
[2017-06-04] MEDS ORDERED: Lidocaine 2% Inj (20ml) IJ ONE (09:53)
[2017-06-04] MEDS ORDERED: Povidone Iodine Topical 10% Sol ONE (09:53)
--- NOTE | 2017-06-04 10:00 | US ---
PROCEDURE: Bilateral lower extremity venous duplex Doppler. HISTORY: Right calf pain COMPARISON: None available. TECHNIQUE: Bilateral common femoral, superficial femoral, popliteal and posterior tibial veins were evaluated. Flow was assessed with color Doppler, compressibility, assessment of phasic flow and augmentation response. FINDINGS: COMMON FEMORAL VEIN: Right CFV: Normal direction of flow, compressibility and augmentation response. Left CFV: Normal direction of flow, compressibility and augmentation response. SUPERFICIAL FEMORAL VEIN: Right SFV: Normal direction of flow, compressibility and augmentation response. Left SFV: Normal direction of flow, compressibility and augmentation response. POPLITEAL VEIN: Right Popliteal: Normal direction of flow, compressibility and augmentation response. Left Popliteal: Normal direction of flow, compressibility and augmentation response. POSTERIOR TIBIAL VEIN: Right PTV: Normal direction of flow, compressibility and augmentation response. Left PTV: Normal direction of flow, compressibility and augmentation response. OTHER FINDINGS: There are enlarged bilateral inguinal lymph nodes. IMPRESSION: No evidence of deep venous thrombosis. Bilateral inguinal lymphadenopathy, nonspecific and could be reactive, infectious or inflammatory in etiology. Neoplastic etiology such as lymphoma is also a consideration. Clinical correlation and follow-up is advised
[2017-06-04] MEDS ORDERED: Lidocaine 2% Inj (20ml) ONE (10:01)
--- NOTE | 2017-06-04 11:02 | CP.PCM.PN ---
Subjective - Date & Time of Evaluation Date of Evaluation: 06/04/17 Time of Evaluation: 11:00 - Subjective Subjective: 42 year old male seen at bedside for infected right third digit. Patient states that he has no pain in the area. He denies any acute overnight events. He is AAO x 3 and NAD, resting comfortably in bed. Denies any further pedal complaints at this time. Denies N/V/F/C/CP/SOB Objective - Vital Signs/Intake and Output Vital Signs (last 24 hours): Temp Pulse Resp BP Pulse Ox 98.7 F 69 20 110/68 96 06/04/17 08:00 06/04/17 08:27 06/04/17 08:00 06/04/17 08:27 06/04/17 08:00 - Medications Medications: Current Medications Acetaminophen (Tylenol 325mg Tab) 650 mg PO Q6 PRN PRN Reason: Fever >100.4 F Amlodipine Besylate (Norvasc) 5 mg PO DAILY [facility] Atorvastatin Calcium (Lipitor) 20 mg PO HS [facility] Last Admin: 06/03/17 23:55 Dose: 20 mg Dextrose (Dextrose 50% Inj) 0 ml IV STAT PRN; Protocol PRN Reason: Hypoglycemia Protocol Dextrose (Glutose 15) 0 gm PO ONCE PRN; Protocol PRN Reason: Hypoglycemia Protocol Enoxaparin Sodium (Lovenox) 40 mg SC DAILY [facility] PRN Reason: Protocol Last Admin: 06/04/17 08:27 Dose: 40 mg Glipizide (Glucotrol) 5 mg PO [facility] Glucagon (Glucagen Diagnostic Kit) 0 mg IM STAT PRN; Protocol PRN Reason: Hypoglycemia Protocol Vancomycin HCl 1 gm/ Sodium (Chloride) 250 mls @ 166.667 mls/hr IVPB DAILY [facility] PRN Reason: Protocol Last Admin: 06/04/17 10:02 Dose: 166.667 mls/hr Piperacillin Sod/Tazobactam (Sod 3.375 gm/ Sodium Chloride) 100 mls @ 100 mls/ hr IVPB Q6 [facility] PRN Reason: Protocol Last Admin: 06/04/17 10:03 Dose: 100 mls/hr Insulin Human NPH (Humulin N) 4 units SC HS [facility] Last Admin: 06/04/17 00:12 Dose: 4 units Lisinopril (Zestril) 20 mg PO DAILY [facility] Last Admin: 06/04/17 08:27 Dose: 20 mg Metformin HCl (Glucophage) 1,000 mg PO BID [facility] Last Admin: 06/04/17 08:26 Dose: 1,000 mg - Labs Labs: 06/04/17 04:25 06/03/17 19:22 - Constitutional Appears: Well, Non-toxic, No Acute Distress - Extremities Exam Additional comments: LE focused exam: Vasc: DP/PT pulses palpable 2/4 b/l. Skin temperature warm to warm from proximal to distal. CFT < 3 seconds. Edematous right third digit noted Neuro: Epicrtic and protective sensation grossly diminished b/l Derm: Callus formation noted to distal right third digit. Right third digit is highly edematous with fluctuance noted distally. Deep purple coloration indicates possible hematoma vs. abscess formation in deep tissue. No open lesions, wounds, maceration, xerosis, abnormal growths noted MSK: Minimal POP to distal third digit of right foot - Neurological Exam Neurological Exam: Alert, Awake, Oriented x3 - Psychiatric Exam Psychiatric exam: Normal Affect, Normal Mood Assessment and Plan - Assessment and Plan (Free Text) Assessment: 42 year old male seen in ED for diabetic foot infection at right third digit Plan: Patient seen and evaluated at bedside Charts, labs, vitals reviewed: WBC - 10.5, afebrile Plan discussed with attending Dr. Irizarry 3 cc of 1% lidocaine plain injected in V block fashion to anesthetize patients third digit of right foot Using a #11 blade, a stab incision was made on the medial aspect of the patient' s right third digit Approximately 3 cc of serosanguinous drainage was expressed from the area with < 1 cc of purulent drainage noted Cultures of the fluid were taken and sent to pathology The overlying skin was then deroofed revealing an approx. 0.2 cm x 0.3 cm ulceration at the DIPJ. No probe to bone, no tunneling, undermining, or tracking. Wound was dressed with bactroban, DSD Podiatry will continue to follow while patient in house
--- NOTE | 2017-06-04 11:32 | RAD ---
HISTORY: COMPARISON: 03/20/2017 TECHNIQUE: Chest PA and lateral FINDINGS: LINES AND TUBES: None. LUNG AND PLEURA: The lungs are well inflated and clear. HEART AND MEDIASTINUM: The heart is not enlarged. The hilar and mediastinal contours are within normal limits. SKELETAL STRUCTURES: The bony structures are within normal limits for the patient's age. VISUALIZED UPPER ABDOMEN: Normal. OTHER FINDINGS: None. IMPRESSION: No active pulmonary disease.
--- NOTE | 2017-06-04 12:09 | RAD ---
PROCEDURE: Right foot 3rd digit radiograph series HISTORY: pain COMPARISON: Right foot radiographs 02/01/2015. TECHNIQUE: Three views of the right foot stages been submitted for interpretation with a single AP view of the right foot. FINDINGS: The prior prominent edema related to the 2nd digit appears to have resolved and prior ostectomy at the distal segment of the 2nd metatarsal bone appears to have increased in length somewhat with mild hyper cortication appreciated. Lucency at the base of the proximal phalanx 2nd digit has resolved and now appears adequately dense. No suspicious lytic change identified throughout. Increased density seen at the distal phalanx 2nd digit of uncertain origin. Clinically correlate here. Deformity of the distal 3rd metatarsal bone is unchanged in appearance. IMPRESSION: No interval lytic changes are appreciated with resolution of prominent edema related to the 2nd digit. Increase density seen related to the distal phalanx 2nd digit as well as the distal 2nd metatarsal bone. No acute fracture subluxation or dislocation.
--- NOTE | 2017-06-04 18:46 | MRI ---
PROCEDURE: MRI Right Foot HISTORY: Osteomyelitis 3rd digit. COMPARISON: Prior foot radiographs 06/03/2017. TECHNIQUE: Multiecho multiplanar sequences were performed through the right foot without the use of intravenous contrast. FINDINGS: Only the forefoot and midfoot of been captured in this examination. BONES: Abnormal or signal is identified at the distal phalanx of the 3rd digit and likely the distal phalanx of the 2nd digit. Similar but limited abnormal signal changes seen at the head of the 2nd metatarsal bone suspicious for osteomyelitis in addition. The metatarsal findings may reflect postoperative change as this patient previously underwent ostectomy of the distal 2nd metatarsal bone, however, clinical correlation is advised. . MUSCLES: Normal. SOFT TISSUES: Soft tissue edema is seen surrounding the distal 3rd phalanx and is mildly present the distal 2nd phalanx. LISFRANC LIGAMENT: Normal. PLANTAR PLATE: Normal. EXTENSOR TENDONS: Normal. FLEXOR TENDONS: Normal. OTHER FINDINGS: None. IMPRESSION: Findings suggest osteomyelitis at the distal phalanges of the 2nd and 3rd digits and potentially at the head of the 2nd metatarsal bone though this may be postoperative in nature. Further clinical correlation is advised. No definite abscess.
[2017-06-05] MEDS: Piperacillin/Tazobact 3.375 GM in Sodium Chloride 0.9% 100 ML IVPB SCH ×4 (04:23→22:09)
--- NOTE | 2017-06-05 08:37 | CP.PCM.PN ---
Subjective - Date & Time of Evaluation Date of Evaluation: 06/05/17 Time of Evaluation: 08:00 - Subjective Subjective: Progress Note for Family Medicine- Dr. Choudhary 42 y.o M with PMHx of DM Type II, HTN, Hypercholesterolemia seen at bedside for 1 day s/p i&d of infected 3rd digit abscess. Patient is seen resting comfortably in bed, in NAD, AA0x3. Patient reports no pain to the LE. States he is feeling well. Denies nausea, vomitting, diarrhea, fever, chills, shortness of breath, chest pain. Denies calf pain or tenderness. Reports normal bowel movements and no urinary problems. No complains today. Objective - Vital Signs/Intake and Output Vital Signs (last 24 hours): Temp Pulse Resp BP Pulse Ox 97.9 F 66 18 124/76 95 06/05/17 07:56 06/05/17 07:56 06/05/17 07:56 06/05/17 07:56 06/05/17 07:56 - Medications Medications: Current Medications Acetaminophen (Tylenol 325mg Tab) 650 mg PO Q6 PRN PRN Reason: Fever >100.4 F Amlodipine Besylate (Norvasc) 5 mg PO DAILY [facility] Atorvastatin Calcium (Lipitor) 20 mg PO HS [facility] Last Admin: 06/04/17 21:58 Dose: 20 mg Dextrose (Dextrose 50% Inj) 0 ml IV STAT PRN; Protocol PRN Reason: Hypoglycemia Protocol Dextrose (Glutose 15) 0 gm PO ONCE PRN; Protocol PRN Reason: Hypoglycemia Protocol Enoxaparin Sodium (Lovenox) 40 mg SC DAILY N[facility]EL PRN Reason: Protocol Last Admin: 06/04/17 08:27 Dose: 40 mg Glipizide (Glucotrol) 5 mg PO AC [facility] Last Admin: 06/04/17 19:25 Dose: Not Given Glucagon (Glucagen Diagnostic Kit) 0 mg IM STAT PRN; Protocol PRN Reason: Hypoglycemia Protocol Piperacillin Sod/Tazobactam (Sod 3.375 gm/ Sodium Chloride) 100 mls @ 100 mls/ hr IVPB Q6 NIGEL PRN Reason: Protocol Last Admin: 06/05/17 04:23 Dose: 100 mls/hr Vancomycin HCl 1 gm/ Sodium (Chloride) 250 mls @ 166.667 mls/hr IVPB Q12 NIGEL PRN Reason: Protocol Last Admin: 06/04/17 20:41 Dose: 166.667 mls/hr Insulin Human NPH (Humulin N) 4 units SC HS [facility] Last Admin: 06/04/17 21:59 Dose: 4 units Lisinopril (Zestril) 20 mg PO DAILY [facility] Last Admin: 06/04/17 08:27 Dose: 20 mg Metformin HCl (Glucophage) 1,000 mg PO BID [facility] Last Admin: 06/04/17 19:24 Dose: 1,000 mg - Labs Labs: 06/04/17 04:25 06/03/17 19:22 - Constitutional Appears: Well, Non-toxic, No Acute Distress - ENT Exam ENT Exam: Mucous Membranes Moist - Neck Exam Neck Exam: Full ROM, Normal Inspection - Respiratory Exam Respiratory Exam: NORMAL BREATHING PATTERN. absent: Accessory Muscle Use, Chest Wall Tenderness, Decreased Breath Sounds, Rales, Rhonchi, Wheezes, Respiratory Distress, Stridor - Cardiovascular Exam Cardiovascular Exam: REGULAR RHYTHM, RRR, +S1, +S2 - GI/Abdominal Exam GI & Abdominal Exam: Soft, Normal Bowel Sounds. absent: Tenderness - Extremities Exam Extremities Exam: Normal Capillary Refill, Normal Inspection. absent: Calf Tenderness Additional comments: Vasc: DP and PT 2/4 bilaterally, CFT <3 seconds, temperature gradient WNL from proximal knees to distal toes Ortho: No pain with palpation to the right 3rd digit, elongated R 3rd digit; No pain with palpation to the calf. Neuro: protective sensation diminished, gross sensation intact Derm: Callus seen at the distal 3rd R digit. No increase warmth noted. No maceration between interspaces noted. No drainage, purulence, odor noted. No probe to bone, No drainage, purulence, odor noted. - Neurological Exam Neurological Exam: Alert, Awake, Oriented x3 - Psychiatric Exam Psychiatric exam: Normal Affect, Normal Mood - Skin Skin Exam: Normal Color, Warm Assessment and Plan - Assessment and Plan (Free Text) Assessment: 42 y/o M with PMHx of DM type 2, HTN, Hypercholesterolemia, resection of left foot 5th proximal phalangeal base 2/2 OM seen 1 day s/p i&d of infected 3rd digit abscess Plan: Right foot 3rd digit infection, possible OM -lactate WNL 1.2 on 06/04/17 WNL (lactate 2.4 on 06/03/17) -WBC 10.5 on 06/04/17 (WBC 10.9 on 06/03/17) -c/w antibiotics IV: vanco and zosyn for empiric wide coverage -f/u vanco trough -increase vancomycin to 1.5mg q 12 -c/w Tylenol 650 mg Q6 PRN for fever -foot X-ray final results. Impression: no interval lytic changes are appreciated with resolution of prominent edema related to the 2nd digit. Increase density seen related to the distal phalanx 2nd digit as well as the distal 2nd metatarsal bone. No acute fracture subluxation or dislocation -venous duplex US report w/ Impression: no DVT, bilaterally inguinal lymphadenopathy, nonspecific, could be reactive, infectious or inflammatory in etiology. Neoplastic etiology such as lymphoma is also consideration. Clinical correlation and followup advised. -f/u Blood Cx -ESR-37 -MRI results- finding suggest OM at the distal phalanges of 2nd and 3rd digits an potentially at the head of the 2nd metatarsal bone though this may be postoperative in nature. Further clinical correlation is advised. No definite abscess. -1 day s/p of right infected 3rd digit abscess bedside i&d, wound culture taken -wound culture pending- preliminary results gram positive cocci -Awaiting podiatry recommendations. -ID consulted- recommendations appreciated -Pt had history of long course abx -In prior admission wound cultures of left foot showed Staph Aureus, but not MRSA, and as per ID, Dr. Martínez, patient was discharged in Ceftriaxone 2 GM IV daily for 6 weeks, which was received at [facility] by PICC line as outpatient (completed Apr 2017) Diabetes Mellitus type 2 -continue with current modified DM treatment as per PMD. As per patient he was having hypoglycemic episodes on M regimen that he was discharged with. -c/w Metformin 100 mg BID PO -c/w Glipizide 5 mg before lunch -c/w NPH insulin 4 units SC at bedtime -accucheck ACHS -diabetic diet -hypoglycemic protocol -HgbA1C 13.0 (03/18/17) HTN -c/w Lisinopril 20 mg PO daily -c/w Amlodipine 5 mg PO daily Hypercholesterolemia -c/w atorvastatin DVT prophylaxis -Lovenox 40 mg SC
[2017-06-05] MEDS: Enoxaparin 40 mg Syringe SC SCH (10:30)
--- NOTE | 2017-06-05 11:29 | CP.PCM.CON ---
History of Present Illness - History of Present Illness History of Present Illness: 42 year old male patient seen in ED complaining of painful, swollen right third digit. Patient states that he first noticed the changes in his digit over the weekend. He has a history of OM and bone resection. . Denies any further pedal complaints at this time. Denies any fever or systemic symptoms Past Patient History - Infectious Disease Hx of Infectious Diseases: None - Tetanus Immunizations Tetanus Immunization: Unknown - Past Medical History & Family History Past Medical History?: Yes - Past Social History Smoking Status: Never Smoked - CARDIAC Hx Congestive Heart Failure: No Hx Hypercholesterolemia: Yes Hx Hypertension: Yes - PULMONARY Hx Chronic Obstructive Pulmonary Disease (COPD): No - NEUROLOGICAL Hx Seizures: No - HEENT Hx HEENT Problems: No - RENAL Hx Chronic Kidney Disease: No - ENDOCRINE/METABOLIC Hx Hypothyroidism: No - HEMATOLOGICAL/ONCOLOGICAL Hx Human Immunodeficiency Virus (HIV): No - INTEGUMENTARY Hx Cellulitis: Yes - MUSCULOSKELETAL/RHEUMATOLOGICAL Hx Arthritis: No Hx Rheumatoid Arthritis: No - GASTROINTESTINAL Hx Gastrointestinal Disorders: No - GENITOURINARY/GYNECOLOGICAL Hx Sexually Transmitted Disorders: No - PSYCHIATRIC Hx Psychophysiologic Disorder: No Hx Emotional Abuse: No Hx Physical Abuse: No Hx Substance Use: No - SURGICAL HISTORY Hx Coronary Artery Bypass Graft: No - ANESTHESIA Hx Anesthesia: Yes Hx Anesthesia Reactions: No Hx Malignant Hyperthermia: No Meds Allergies/Adverse Reactions: Allergies Allergy/AdvReac Type Severity Reaction Status Date / Time No Known Allergies Allergy Verified 06/03/17 20:06 - Medications Medications: Current Medications Acetaminophen (Tylenol 325mg Tab) 650 mg PO Q6 PRN PRN Reason: Fever >100.4 F Amlodipine Besylate (Norvasc) 5 mg PO DAILY [facility] Atorvastatin Calcium (Lipitor) 20 mg PO HS [facility] Last Admin: 06/04/17 21:58 Dose: 20 mg Dextrose (Dextrose 50% Inj) 0 ml IV STAT PRN; Protocol PRN Reason: Hypoglycemia Protocol Dextrose (Glutose 15) 0 gm PO ONCE PRN; Protocol PRN Reason: Hypoglycemia Protocol Enoxaparin Sodium (Lovenox) 40 mg SC DAILY [facility]EL PRN Reason: Protocol Last Admin: 06/05/17 10:30 Dose: 40 mg Glipizide (Glucotrol) 5 mg PO AC [facility] Last Admin: 06/05/17 10:30 Dose: 5 mg Glucagon (Glucagen Diagnostic Kit) 0 mg IM STAT PRN; Protocol PRN Reason: Hypoglycemia Protocol Piperacillin Sod/Tazobactam (Sod 3.375 gm/ Sodium Chloride) 100 mls @ 100 mls/ hr IVPB Q6 NIGEL PRN Reason: Protocol Last Admin: 06/05/17 10:29 Dose: 100 mls/hr Vancomycin HCl 1.5 gm/ Sodium (Chloride) 500 mls @ 250 mls/hr IVPB Q12 NIGEL PRN Reason: Protocol Insulin Human NPH (Humulin N) 4 units SC HS [facility] Last Admin: 06/04/17 21:59 Dose: 4 units Lisinopril (Zestril) 20 mg PO DAILY [facility] Last Admin: 06/05/17 10:30 Dose: 20 mg Metformin HCl (Glucophage) 1,000 mg PO BID [facility] Last Admin: 06/05/17 10:31 Dose: 1,000 mg Physical Exam - Extremities Exam Additional comments: right third digit with swelling tenderness eythema Results - Vital Signs Recent Vital Signs: Last Vital Signs Temp 97.9 F 06/05/17 07:56 Pulse 66 06/05/17 10:30 Resp 18 06/05/17 07:56 BP 124/76 06/05/17 10:30 Pulse Ox 95 06/05/17 07:56 - Labs Result Diagrams: 06/04/17 04:25 06/03/17 19:22 Labs: Laboratory Results - last 24 hr 06/04/17 06/04/17 06/04/17 11:46 15:58 21:58 ESR POC Glucose (mg/dL) 240 H 293 H 140 H Vancomycin Trough 06/05/17 06/05/17 06/05/17 04:30 05:37 09:00 ESR 37 H POC Glucose (mg/dL) 122 H Vancomycin Trough < 5.0 L Assessment & Plan - Assessment and Plan (Free Text) Assessment: Right third digit cellulitis, possible abscess for I and D Osteomyelitis possibility with MRI though it could be post op changes. ESR not very high to suggest osteomyelitis. Suggest Vancomycin and Zosyn until speciation and sensitivity available. Increase dose of Vanco to 1 g q 12h.
--- NOTE | 2017-06-05 11:40 | CP.PCM.PN ---
Subjective - Date & Time of Evaluation Date of Evaluation: 06/05/17 Time of Evaluation: 11:38 - Subjective Subjective: 42 year old male seen at bedside today for ulceration of right third digit. Patient denies pain to foot. Patient denies any acute overnight events. Denies any further pedal complaints at this time. Is AAO x 3 and NAD resting comfortably in bed. Objective - Vital Signs/Intake and Output Vital Signs (last 24 hours): Temp Pulse Resp BP Pulse Ox 97.9 F 66 18 124/76 95 06/05/17 07:56 06/05/17 10:30 06/05/17 07:56 06/05/17 10:30 06/05/17 07:56 - Medications Medications: Current Medications Acetaminophen (Tylenol 325mg Tab) 650 mg PO Q6 PRN PRN Reason: Fever >100.4 F Amlodipine Besylate (Norvasc) 5 mg PO DAILY [facility] Atorvastatin Calcium (Lipitor) 20 mg PO HS [facility] Last Admin: 06/04/17 21:58 Dose: 20 mg Dextrose (Dextrose 50% Inj) 0 ml IV STAT PRN; Protocol PRN Reason: Hypoglycemia Protocol Dextrose (Glutose 15) 0 gm PO ONCE PRN; Protocol PRN Reason: Hypoglycemia Protocol Enoxaparin Sodium (Lovenox) 40 mg SC DAILY [facility]IG[facility] PRN Reason: Protocol Last Admin: 06/05/17 10:30 Dose: 40 mg Glipizide (Glucotrol) 5 mg PO AC [facility] Last Admin: 06/05/17 10:30 Dose: 5 mg Glucagon (Glucagen Diagnostic Kit) 0 mg IM STAT PRN; Protocol PRN Reason: Hypoglycemia Protocol Piperacillin Sod/Tazobactam (Sod 3.375 gm/ Sodium Chloride) 100 mls @ 100 mls/ hr IVPB Q6 NIGEL PRN Reason: Protocol Last Admin: 06/05/17 10:29 Dose: 100 mls/hr Vancomycin HCl 1.5 gm/ Sodium (Chloride) 500 mls @ 250 mls/hr IVPB Q12 NIGEL PRN Reason: Protocol Insulin Human NPH (Humulin N) 4 units SC HS [facility] Last Admin: 06/04/17 21:59 Dose: 4 units Lisinopril (Zestril) 20 mg PO DAILY [facility] Last Admin: 06/05/17 10:30 Dose: 20 mg Metformin HCl (Glucophage) 1,000 mg PO BID [facility] Last Admin: 06/05/17 10:31 Dose: 1,000 mg - Labs Labs: 06/04/17 04:25 06/03/17 19:22 - Constitutional Appears: Well, Non-toxic, No Acute Distress - Extremities Exam Additional comments: LE focused exam: Vasc: DP/PT pulses palpable 2/4 b/l. Skin temperature warm to warm from proximal to distal. CFT < 3 seconds. Edematous right second and third digit noted Neuro: Epicrtic and protective sensation grossly diminished b/l Derm: Callus formation noted to distal right third digit with ulceration noted proximally at the DIPJ measuring approx. 0.2 cm x 0.3 cm. No probe to bone, no tunneling, undermining, or tracking. Deep purple coloration indicates possible hematoma vs. abscess formation in deep tissue. No open lesions, wounds, maceration, xerosis, abnormal growths noted. No open wounds noted to right second digit. Callosity noted at distal tip of toe MSK: Minimal POP to distal third digit of right foot - Neurological Exam Neurological Exam: Alert, Awake, Oriented x3 - Psychiatric Exam Psychiatric exam: Normal Affect, Normal Mood Assessment and Plan - Assessment and Plan (Free Text) Assessment: 42 year old male with possible OM of right second and third distal phalanges, ulceration right second digit Plan: Patient seen and evaluated at bedside Charts, labs, vitals reviewed ESR 37 MRI: Findings suggest OM of distal phalanges 2nd and 3rd digit and potentially at head of 2nd met (may be postoperative in nature). No definite abscess Awaiting final plan from Dr. Irizarry on whether or not surgical intervention is warranted COntinue IV abx Wound dressed with betadine wet to dry dressing and DSD. Podiatry will continue to follow while patient in house
--- NOTE | 2017-06-05 12:05 | CARD ---
APPROVED REPORT EKG Measurement Heart [id number] <Conclusion> Normal sinus rhythm Normal ECG
--- NOTE | 2017-06-05 14:11 | CP.PCM.DIS ---
Provider - Provider Date of Admission: 06/03/17 19:38 Attending physician: Aditi Choudhary MD Consults: Infectious Disease- Dr. Cunningham Podiatry- Dr. Irizarry Time Spent in preparation of Discharge (in minutes): 30 Diagnosis - Discharge Diagnosis (1) Cellulitis and abscess of toe of right foot Status: Acute (2) Diabetes Status: Chronic Priority: Low (3) HTN (hypertension) Status: Chronic Priority: Medium Hospital Course - Lab Results Lab Results: Micro Results 06/04/17 11:05 Toe Gram Stain - Final 06/04/17 11:05 Toe Wound Culture - Preliminary Gram Positive Cocci 06/03/17 18:55 Blood Blood Culture - Preliminary NO GROWTH AFTER 24 HOURS Most Recent Lab Values WBC 10.5 K/uL (4.8-10.8) 06/04/17 04:25 RBC 4.39 Mil/uL (4.40-5.90) L 06/04/17 04:25 Hgb 12.1 g/dL (12.0-18.0) 06/04/17 04:25 Hct 37.0 % (35.0-51.0) 06/04/17 04:25 MCV 84.3 fl (80.0-94.0) 06/04/17 04:25 MCH 27.5 pg (27.0-31.0) 06/04/17 04:25 MCHC 32.7 g/dL (33.0-37.0) L 06/04/17 04:25 RDW 14.9 % (11.5-14.5) H 06/04/17 04:25 Plt Count 178 K/uL (130-400) 06/04/17 04:25 MPV 9.5 fl (7.2-11.7) 06/04/17 04:25 Neut % (Auto) 54.6 % (50.0-75.0) 06/04/17 04:25 Lymph % (Auto) 30.2 % (20.0-40.0) 06/04/17 04:25 [place] % (Auto) 11.3 % (0.0-10.0) H 06/04/17 04:25 Eos % (Auto) 3.7 % (0.0-4.0) 06/04/17 04:25 Baso % (Auto) 0.2 % (0.0-2.0) 06/04/17 04:25 Neut # 5.7 K/uL (1.8-7.0) 06/04/17 04:25 Lymph # 3.2 K/uL (1.0-4.3) 06/04/17 04:25 [place] # 1.2 K/uL (0.0-0.8) H 06/04/17 04:25 Eos # 0.4 K/uL (0.0-0.7) 06/04/17 04:25 Baso # 0.0 K/uL (0.0-0.2) 06/04/17 04:25 ESR 37 mm/hr (0-15) H 06/05/17 04:30 pO2 22 mm/Hg (30-55) L 06/03/17 22:23 VBG pH 7.40 (7.32-7.43) 06/03/17 22:23 VBG pCO2 47 mmHg (40-60) 06/03/17 22:23 VBG HCO3 26.0 mmol/L 06/03/17 22:23 VBG Total CO2 30.5 mmol/L (22-28) H 06/03/17 22:23 VBG O2 Sat (Calc) 45.8 % (40-65) 06/03/17 22:23 VBG Base Excess 3.5 mmol/L (0.0-2.0) H 06/03/17 22:23 VBG Potassium 4.2 mmol/L (3.6-5.2) 06/03/17 22:23 Sodium 140.0 mmol/L (132-148) 06/03/17 22:23 Chloride 106.0 mmol/L (98-107) 06/03/17 22:23 Glucose 212 mg/dL (75-110) H 06/03/17 22:23 Lactate 1.2 mmol/L (0.7-2.1) 06/03/17 22:23 FiO2 21.0 % 06/03/17 22:23 Sodium 144 mmol/l (132-148) 06/03/17 19:22 Potassium 4.1 MMOL/L (3.6-5.0) 06/03/17 19:22 Chloride 102 mmol/L (98-107) 06/03/17 19:22 Carbon Dioxide 28 mmol/L (22-30) 06/03/17 19:22 Anion Gap 18 (10-20) 06/03/17 19:22 BUN 16 mg/dl (9-20) 06/03/17 19:22 Creatinine 0.6 mg/dL (0.8-1.5) L 06/03/17 19:22 Est GFR ( Amer) > 60 06/03/17 19:22 Est GFR (Non-Af Amer) > 60 06/03/17 19:22 POC Glucose (mg/dL) 272 mg/dL (65-110) H 06/05/17 12:26 Random Glucose 176 mg/dL (75-110) H 06/03/17 19:22 Calcium 9.2 mg/dL (8.4-10.2) 06/03/17 19:22 Total Bilirubin 0.4 mg/dl (0.2-1.3) 06/03/17 19:22 AST 26 U/L (17-59) 06/03/17 19:22 ALT 46 U/L (21-72) 06/03/17 19:22 Alkaline Phosphatase 77 U/L (38-126) 06/03/17 19:22 Total Protein 8.1 G/DL (6.3-8.2) 06/03/17 19:22 Albumin 4.5 g/dL (3.5-5.0) 06/03/17 19:22 Globulin 3.6 gm/dL (2.2-3.9) 06/03/17 19:22 Albumin/Globulin Ratio 1.3 (1.0-2.1) 06/03/17 19:22 Venous Blood Potassium 4.2 mmol/L (3.6-5.2) 06/03/17 22:23 Vancomycin Trough < 5.0 ug/mL (5.0-10.0) L 06/05/17 09:00 - Hospital Course Hospital Course: Discharge Summary is Family Medicine- Dr. Nik Villalobos 42 y/o with PMHx of DM Type 2, HTN, Hypercholesterolemia, resection of left foot 5th proximal phalangeal base 2/2 OM admitted for right 3rd digit abscess/ cellulites. During hospital stay, podiatry performed I&D of abscess. Pt given IV abx Vanco and Zosyn for empiric coverage. MRI findings suggest "suggest OM at the distal phalanges of 2nd and 3rd digits an potentially at the head of the 2nd metatarsal bone though this may be postoperative in nature. Further clinical correlation is advised. No definite abscess." ESR is 37. ID, Dr. Cunningham, recommended c/w in house abx IV abx Vancomycin and Zosyn. Per Dr. Irizarry, patient can be discharge with PO abx, will f/u with Dr. Irizarry on Saturday (06/07/17) for further workup. Patient clinically improved and decision was made to d/c patient with close f/u With PMD Dr. Mckeon and Dr. Irizarry as outpatient. Discharge Exam - Head Exam Head Exam: ATRAUMATIC, NORMAL INSPECTION, NORMOCEPHALIC - ENT Exam ENT Exam: Mucous Membranes Moist - Respiratory Exam Respiratory Exam: NORMAL BREATHING PATTERN, UNREMARKABLE. absent: Rales, Rhonchi, Wheezes, Respiratory Distress, Stridor - Cardiovascular Exam Cardiovascular Exam: REGULAR RHYTHM, RRR, +S1, +S2 - GI/Abdominal Exam GI & Abdominal Exam: Normal Bowel Sounds, Unremarkable - Extremities Exam Additional comments: Vasc: DP and PT 2/4 bilaterally, CFT <3 seconds, temperature gradient WNL from proximal knees to distal toes Ortho: No pain with palpation to the right 3rd digit, elongated R 3rd digit; No pain with palpation to the calf. Neuro: protective sensation diminished, gross sensation intact Derm: Callus seen at the distal 3rd R digit. No increase warmth noted. No maceration between interspaces noted. No drainage, purulence, odor noted. No probe to bone, no fluctuated, red discoloration noted to the lateral aspect of the right 3rd digit,erythema noted. - Neurological Exam Neurological exam: Alert, Oriented x3 - Psychiatric Exam Psychiatric exam: Normal Affect, Normal Mood - Skin Skin Exam: Intact, Normal Color, Warm Discharge Plan - Discharge Medications Prescriptions: Lisinopril [Zestril] 20 mg PO BID 30 Days #60 tab Lisinopril [Zestril] 20 mg PO BID #30 tab Sulfamethoxazole/Trimethoprim [Bactrim DS 800 mg-160 mg] 1 tab PO BID #28 tab - Follow Up Plan Condition: FAIR Disposition: HOME/ ROUTINE Patient education suggested?: Yes Instructions: Sulfamethoxazole/Trimethoprim (By mouth), Cellulitis (DC), Diabetic Foot Care (DC), Diabetes Mellitus Type 2 in Adults (DC) Additional Instructions: Per podiatry, patient will be discharge with PO abx Bactrim DS 14 days F/U with Dr. Irizarry in Wound care this Saturday Dr. Irizarry will clinically assess pt and correlate lab findings for further care Education and given ED precaution F/U with PMD Dr. Mckeon on 06/20/17@10AM F/U wound culture- pending Rx Bactrim DS Rx Lisinopril 20mg PO BID Rx BMP, to be taken on 06/19/17 prior to [facility] appt with Dr. Mckeon on 06/20/17 Medication reconciled. Medication List: Glipizide 5mg PO Daily Insulin Human Nph 4 units SC HS [facility] Metformin HCl 1,000 mg PO BID Amlodipine Besylate 5mg PO DAILY Atorvastatin Calcium 20mg PO HS [facility] Lisinopril 20mg PO BID [facility] Bactrim DS 1 tab PO BID
[2017-06-05] MEDS: Vancomycin 1.5 GM in Sodium Chloride 0.9% 500 ML IVPB SCH (21:57)
[2017-06-05] MEDS: Insulin NPH Human 100 Units/ml Inj SC SCH (22:06)
[2017-06-06] MEDS: Piperacillin/Tazobact 3.375 GM in Sodium Chloride 0.9% 100 ML IVPB SCH ×2 (04:22→15:22)
[2017-06-06 08:05] VITALS: PULSE 64
[2017-06-06] MEDS: Enoxaparin 40 mg Syringe SC SCH (09:27)
[2017-06-06 09:41] LABS: HEMATOCRIT 39.5 % (35.0-51.0); MEAN CELL VOLUME 83.8 fl (80.0-94.0); MEAN CORPUSCULAR HEMOGLOBIN 27.9 pg (27.0-31.0); MEAN CORPUSCULAR HGB CONC 33.4 g/dL (33.0-37.0); RED CELL DISTRIBUTION WIDTH 14.5 % (11.5-14.5); WHITE BLOOD COUNT 6.8 K/uL (4.8-10.8)
[2017-06-06] MEDS: Vancomycin 1.5 GM in Sodium Chloride 0.9% 500 ML IVPB SCH (11:39)
[2017-06-06 15:56] VITALS: BP 118/70; RESP 19; TEMP 97.9; O2SAT 94
== END 2017-06-06 16:47 | disposition home or self-care (01) | DRG 277 ==
LOC: H.ER 17:54 → H.ERHOLD 19:38 → H.TEL 06-04 01:06 → H.MEDSURG1 06-05 21:38
PROVIDERS: ADMIT Family Medicine Geriatric Medicine; ATTEND Family Medicine Geriatric Medicine
DX: L03.031 Cellulitis of right toe (principal); E11.649 Type 2 diabetes mellitus with hypoglycemia without coma; E11.40 Type 2 diabetes mellitus with diabetic neuropathy, unspecified; E11.628 Type 2 diabetes mellitus with other skin complications; L02.611 Cutaneous abscess of right foot; B95.61 Methicillin susceptible Staphylococcus aureus infection as the cause of diseases classified elsewhere; I10 Essential (primary) hypertension; E78.00 Pure hypercholesterolemia, unspecified; Z86.19 Personal history of other infectious and parasitic diseases; Z79.4 Long term (current) use of insulin

== ENCOUNTER 2017-08-31 12:00 | Emergency (ER) | payer OTHER ==
[2017-08-31 12:01] VITALS: BMI 41.5
[2017-08-31 12:35] VITALS: BP 126/81; PULSE 98; RESP 16; TEMP 99.1; O2SAT 100
[2017-08-31] MEDS ORDERED: Naproxen 500 MG TAB PO ONE (13:04)
[2017-08-31] MEDS ORDERED: Naproxen 500 MG TAB PO STA (13:08)
--- NOTE | 2017-08-31 13:11 | ED PDOC ---
Upper Extremity Pain/Injury Time Seen by Provider: 08/31/17 12:43 Chief Complaint (Nursing): Upper Extremity Problem/Injury Chief Complaint (Provider): Left Elbow Pain History Per: Patient History/Exam Limitations: no limitations Current Symptoms Are (Timing): Still Present Additional Complaint(s): Gucci is a 42 y/o male who presents to the ED complaining of pain in his left elbow with difficulty extending and flexing it. He denies fall. PMD: Ramiro Johnson Past Medical History Vital Signs: Last Vital Signs Temp 99.1 F 08/31/17 12:32 Pulse 98 H 08/31/17 12:32 Resp 16 08/31/17 12:32 BP 126/81 08/31/17 12:32 Pulse Ox 100 08/31/17 12:32 - Medical History PMH: Diabetes (type II, diabetic neuropathy w/in b/l feet, diabetic foot ulcers) , HTN, Hypercholesterolemia Denies: Arthritis, CHF, COPD, CVA, Hepatitis, HIV, Hypothyroidism, Chronic Kidney Disease, Rheumatoid Arthritis, Seizures, Sexually Transmitted Disease Other PMH: denies gout - Surgical History Surgical History: Denies: CABG - Family History Family History: States: Diabetes, Hypertension - Social History Alcohol: None - Immunization History Hx Tetanus Toxoid Vaccination: Yes - Home Medications Home Medications: Ambulatory Orders Medication Instructions Recorded Atorvastatin [Lipitor] 20 mg PO HS tab 06/06/17 GlipiZIDE [Glucotrol] 5 mg PO DAILY@1130 tab 06/06/17 Insulin Human NPH [Humulin N] 4 units SC HS vial 06/06/17 Lisinopril [Zestril] 20 mg PO BID 30 Days #60 tab 06/06/17 MetFORMIN [glucoPHAGE] 1,000 mg PO BID tab 06/06/17 Sulfamethoxazole/Trimethoprim 1 tab PO BID #28 tab 06/06/17 [Bactrim DS 800 mg-160 mg] amLODIPine [Norvasc] 5 mg PO DAILY tab 06/06/17 Naproxen 1 tab PO Q12 PRN #14 tab 08/31/17 - Allergies Allergies/Adverse Reactions: Allergies Allergy/AdvReac Type Severity Reaction Status Date / Time No Known Allergies Allergy Verified 08/31/17 12:32 Review of Systems ROS Statement: Except As Marked, All Systems Reviewed And Found Negative Musculoskeletal: Positive for: Arm Pain (left elbow, difficulty extending and flexing) Physical Exam - Reviewed Nursing Documentation Reviewed: Yes Vital Signs Reviewed: Yes - Physical Exam Appears: Positive for: Well, Non-toxic, No Acute Distress Cardiovascular/Chest: Positive for: Regular Rate, Rhythm. Negative for: Murmur Respiratory: Positive for: Normal Breath Sounds. Negative for: Respiratory Distress Extremity: Positive for: Tenderness (lateral left epicondyle). Negative for: Normal ROM (difficulty extending left arm completely), Other (effusion) Neurologic/Psych: Positive for: Alert, Oriented - ECG O2 Sat by Pulse Oximetry: 100 (RA) Pulse Ox Interpretation: Normal - Progress ED Course And Treament: xry of elbow: no fx Placed in sling Medical Decision Making Medical Decision Making: Time: 12:43 Initial Impression: Left Elbow Pain Initial Plan: --Naproxen 500 mg --XR Left 3 Views Scribe Attestation: Documented by Zion Alvarado, acting as a scribe for Karen Hannah PA-C Provider Scribe Attestation: All medical record entries made by the Scribe were at my direction and personally dictated by me. I have reviewed the chart and agree that the record accurately reflects my personal performance of the history, physical exam, medical decision making, and the department course for this patient. I have also personally directed, reviewed, and agree with the discharge instructions and disposition. Disposition - Clinical Impression Clinical Impression: Lateral epicondylitis - Patient ED Disposition Is Patient to be Admitted: No - Disposition Referrals: [facility] [Outside] Disposition: Routine/Home Disposition Time: 13:32 Condition: FAIR Prescriptions: Naproxen 1 tab PO Q12 PRN #14 tab PRN Reason: Pain, Moderate (4-7) Instructions: Tennis Elbow (ED) Print Language: DIVEHI
--- NOTE | 2017-09-02 11:10 | RAD ---
PROCEDURE: Radiographs of the left elbow. HISTORY: Elbow injury. COMPARISON: No prior. FINDINGS: BONES: Current study reveals no definitive evidence of acute displaced fracture nor dislocation. The osseous structures appear intact. Tiny bony densities seen within the soft tissues adjacent to the olecranon process which likely represents some all posttraumatic mineralization sequela. There is also mild dorsal soft tissue swelling overlying the olecranon. . Questionable tiny joint effusion. Recommend repeat radiographs 5-10 days as most fractures should become radiographically evident in this timeframe. Alternately, CT scan or MRI could be performed. Small bony protuberances seen arising from the lateral epicondyle. JOINTS: Joint spaces appear relatively preserved. SOFT TISSUES: Normal. JOINT EFFUSION: Questionable tiny joint effusion OTHER FINDINGS: None IMPRESSION: No definitive radiographic evidence of acute displaced fracture nor dislocation. Probable tiny posttraumatic mineralization foci within the dorsal soft tissues. Questionable tiny joint effusion. Consider repeat radiographs in 5-10 days as most fractures should become radiographically evident in this timeframe. Alternately, followup the CT scan or MRI could be performed. This report was placed in PA review folder for followup. A Becky adductor wall EMR so far except for 1 which does not have the report the at pain Becky at diastole MRIs except for 1 which does not have not be read report that
== END 2017-08-31 13:45 | disposition home or self-care (01) ==
LOC: H.ER 12:00
DX: M77.12 Lateral epicondylitis, left elbow (principal)

== ENCOUNTER 2017-10-03 12:07 | Emergency (ER) | payer OTHER ==
[2017-10-03 12:08] VITALS: BMI 41.5
[2017-10-03 12:15] VITALS: BP 133/81; PULSE 90; RESP 16; TEMP 98; O2SAT 100
--- NOTE | 2017-10-03 12:47 | CP.PCM.CON ---
History of Present Illness - History of Present Illness History of Present Illness: Podiatry Consult Note - Dr. Toro 42 year old male PMHx DM, HTN, HLD seen in ED for right 3rd digit redness and swelling. Patient well known to podiatry service. Patient states he first noticed the changes in his 3rd digit on Saturday, along with bloody drainage on his sock. Patient also reports a fever last night however no N/V/F/D/C/SOB currently. Patient denies any pain to his 3rd digit. Of note, patient was previously admitted for cellulitis, infected ulcerations to bilateral feet, and has hx of osteomyelitis. Denies numbness, burning, or tingling in his feet b/l. Offers no other complaints. Review of Systems - Review of Systems All systems: reviewed and no additional remarkable complaints except (as per HPI ) Past Patient History - Infectious Disease Hx of Infectious Diseases: None - Tetanus Immunizations Tetanus Immunization: Unknown - Past Medical History & Family History Past Medical History?: Yes - Past Social History Smoking Status: Never Smoked - CARDIAC Hx Congestive Heart Failure: No Hx Hypercholesterolemia: Yes Hx Hypertension: Yes - PULMONARY Hx Chronic Obstructive Pulmonary Disease (COPD): No - NEUROLOGICAL Hx Seizures: No - HEENT Hx HEENT Problems: No - RENAL Hx Chronic Kidney Disease: No - ENDOCRINE/METABOLIC Hx Diabetes Mellitus Type 2: Yes Hx Hypothyroidism: No - HEMATOLOGICAL/ONCOLOGICAL Hx Human Immunodeficiency Virus (HIV): No - INTEGUMENTARY Hx Cellulitis: Yes - MUSCULOSKELETAL/RHEUMATOLOGICAL Hx Arthritis: No Hx Rheumatoid Arthritis: No - GASTROINTESTINAL Hx Gastrointestinal Disorders: No - GENITOURINARY/GYNECOLOGICAL Hx Sexually Transmitted Disorders: No - PSYCHIATRIC Hx Psychophysiologic Disorder: No Hx Emotional Abuse: No Hx Physical Abuse: No Hx Substance Use: No - SURGICAL HISTORY Hx Coronary Artery Bypass Graft: No - ANESTHESIA Hx Anesthesia: Yes Hx Anesthesia Reactions: No Hx Malignant Hyperthermia: No Meds Allergies/Adverse Reactions: Allergies Allergy/AdvReac Type Severity Reaction Status Date / Time No Known Allergies Allergy Verified 10/03/17 12:12 - Medications Medications: Current Medications Vancomycin HCl 1,000 mg/ (Sodium Chloride) 250 mls @ 250 mls/hr IVPB ONCE ONE PRN Reason: Protocol Stop: 10/03/17 13:32 Physical Exam - Constitutional Appears: Well, Non-toxic, No Acute Distress - Extremities Exam Additional comments: LE focused exam: Vasc: DP/PT pulses palpable 2/4 b/l. Skin temperature warm to warm from proximal to distal b/l; increase in warmth to right 3rd digit. CFT <3 seconds to all digits b/l. Nonpitting edema noted to right 2nd and 3rd digits. Neuro: Epicritic and protective sensation grossly diminished b/l Derm: Full thickness ulceration measuring approximately 0.7 x 0.5 x 0.2 cm noted to right 3rd digit distal tuft - ulcer noted to have a 100% granular base and hyperkeratotic rim; purulence able to be expressed; undermining present; negative probe to bone; negative malodor. Erythema encompassing entire right 3rd digit extending into MPJ. Healed ulceration noted to dorsum of 4th PIPJ with overlying hyperkeratosis. Healed ulcer noted sub met 3. Well-healed cictrices to dorsum of right 2nd and 3rd MPJ. Ortho: No pain on palpation right 3rd digit. Pain on palpation healed ulceration right 4th PIPJ. Multiple amputations left foot. - Neurological Exam Neurological exam: Alert, Oriented x3 - Psychiatric Exam Psychiatric exam: Normal Affect, Normal Mood Results - Vital Signs Recent Vital Signs: Last Vital Signs Temp 98.0 F 10/03/17 12:12 Pulse 90 10/03/17 12:12 Resp 16 10/03/17 12:12 BP 133/81 10/03/17 12:12 Pulse Ox 100 10/03/17 12:12 - Labs Result Diagrams: 10/03/17 12:46 10/03/17 12:46 Assessment & Plan - Assessment and Plan (Free Text) Assessment: 42M PMHx DM2, HTN, HLD with 1) full thickness ulceration secondary to diabetic neuropathy, infected 2) cellulitis right 3rd digit Plan: Patient seen and evaluated Discussed with attending, Dr. Toro Afebrile, WBC 6.0, ESR pending Right foot XR reviewed: Soft tissue swelling plantar aspect right foot at the level of the 2nd and 3rd metatarsals. No interval change with respect to adjacent osseous structures. WCx, BCx obtained Vancomycin 1g IV x1 dose given in ED Ulceration cleansed with sterile saline, bacitracin applied to ulcer, and dressed with DSD. Advised patient to keep dressing clean/dry/intact until f/u with Dr. Toro Surgical shoe dispensed - to be worn at all times when ambulating Recommend dc home on Bactrim DS 1 tab PO BID Patient to follow up with Dr. Toro in wound care center within 1 week of discharge Stable for d/c per podiatry Thank you for the consult, please reconsult podiatry as needed
--- NOTE | 2017-10-03 12:50 | ED PDOC ---
Lower Extremity Pain/Injury Time Seen by Provider: 10/03/17 12:23 Chief Complaint (Nursing): Lower Extremity Problem/Injury Chief Complaint (Provider): Toe injury History Per: Patient History/Exam Limitations: no limitations Onset/Duration Of Symptoms: Days Current Symptoms Are (Timing): Still Present Additional History Per: Patient Additional Complaint(s): 42yo male with history of diabetes, not on insulin, presents to ED for evaluation of right 3rd toe injury while at work. 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 He also is complaining of an ulcer to the bottom of his right 2nd toe; he reports redness, swelling and feels as if the toe may be infected. He also reports a tactile fever yesterday. Patient states his fasting sugar this morning was 300. He denies any numbness, weakness, decreased ROM, chills or other injuries. He has no other medical complaints. Past Medical History Reviewed: Historical Data, Nursing Documentation, Vital Signs Vital Signs: Last Vital Signs Temp 98.0 F 10/03/17 12:12 Pulse 90 10/03/17 12:12 Resp 16 10/03/17 12:12 BP 133/81 10/03/17 12:12 Pulse Ox 100 10/03/17 12:12 - Medical History PMH: Diabetes (type II, diabetic neuropathy w/in b/l feet, diabetic foot ulcers) , HTN, Hypercholesterolemia Denies: Arthritis, CHF, COPD, CVA, Hepatitis, HIV, Hypothyroidism, Chronic Kidney Disease, Rheumatoid Arthritis, Seizures, Sexually Transmitted Disease - Surgical History Surgical History: No Surg Hx Denies: CABG - Family History Family History: States: Diabetes, Hypertension - Immunization History Hx Tetanus Toxoid Vaccination: Yes - Home Medications Home Medications: Ambulatory Orders Medication Instructions Recorded Atorvastatin [Lipitor] 20 mg PO HS tab 06/06/17 GlipiZIDE [Glucotrol] 5 mg PO DAILY@1130 tab 06/06/17 Insulin Human NPH [Humulin N] 4 units SC HS vial 06/06/17 Lisinopril [Zestril] 20 mg PO BID 30 Days #60 tab 06/06/17 MetFORMIN [glucoPHAGE] 1,000 mg PO BID tab 06/06/17 Sulfamethoxazole/Trimethoprim 1 tab PO BID #28 tab 06/06/17 [Bactrim DS 800 mg-160 mg] amLODIPine [Norvasc] 5 mg PO DAILY tab 06/06/17 Naproxen 1 tab PO Q12 PRN #14 tab 08/31/17 Sulfamethoxazole/Trimethoprim 1 tab PO BID #28 tab 10/03/17 [Bactrim DS 800 mg-160 mg] - Allergies Allergies/Adverse Reactions: Allergies Allergy/AdvReac Type Severity Reaction Status Date / Time No Known Allergies Allergy Verified 10/03/17 12:12 Review of Systems ROS Statement: Except As Marked, All Systems Reviewed And Found Negative Constitutional: Positive for: Fever. Negative for: Chills Musculoskeletal: Positive for: Foot Pain (right 2nd and 3rd toe ) Neurological: Negative for: Weakness, Numbness Physical Exam - Reviewed Nursing Documentation Reviewed: Yes Vital Signs Reviewed: Yes - Physical Exam Comments: GENERAL APPEARANCE: Patient is awake, alert, oriented x 3, in mild painful distress. SKIN: warm and dry, +1cm ulcer to distal tip of right 3rd toe. PULMONARY: lungs clear, no rhonchi, no wheezing. CARDIAC: regular rate and rhythm, no murmur, no gallop. EXTREMITIES: right 2nd toe with erythema, edema. normal capillary refill. normal ROM of all toes on right foot. NEUROVASCULAR: normal distal pulses and sensations of right foot - Laboratory Results Result Diagrams: 10/03/17 12:46 10/03/17 12:46 - ECG O2 Sat by Pulse Oximetry: 100 (RA) Pulse Ox Interpretation: Normal Medical Decision Making Medical Decision Making: Impression: Diabetic foot ulcer Plan: -- Podiatry consult -- XR Right foot, 3rd digit -- Labs -- IV Antibiotics -- Blood & wound cx sent Time: 1415 XR R foot : Soft tissue swelling plantar aspect right foot at the level of the 2nd and 3rd metatarsals. No interval change with respect to adjacent osseous structures, as per radiologist. Patient seen and evaluated by podiatry resident. Labs reviewed : wbc is wnl, glucose is 260, rest of the labs wnl. On re-evaluation, patient is resting comfortably in no acute distress. Based on history, exam and diagnostic results plan will be for discharge home with Bactrim as per directions of podiatry resident Dr. Keith, and instructions to follow up at the podiatry clinic. Patient to be placed in a surgical shoe as well. Patient advised to take medication as prescribed. Return to the emergency room at any time for any new or worsening symptoms. Patient states he fully agrees with and understands discharge instructions. States that he agrees with the plan and disposition. Verbalized and repeated discharge instructions and plan. I have given the patient opportunity to ask any additional questions. Scribe Attestation: Documented by Felicia Coburn acting as a scribe for Cecelia Wilde PA-C. Provider Attestation: All medical record entries made by the Scribe were at my direction and personally dictated by me. I have reviewed the chart and agree that the record accurately reflects my personal performance of the history, physical exam, medical decision making, and the department course for this patient. I have also personally directed, reviewed, and agree with the discharge instructions and disposition. Disposition - Clinical Impression Clinical Impression: Diabetic foot ulcer - Patient ED Disposition Is Patient to be Admitted: No Counseled Patient/Family Regarding: Studies Performed, Diagnosis, Need For Followup, Rx Given - Disposition Disposition: Routine/Home Disposition Time: 14:15 Condition: STABLE Additional Instructions: Thank you for letting us take care of you today. You were treated for diabetic foot ulcer. The emergency medical care you received today was directed at your acute symptoms. If you were prescribed any medication, please fill it and take as directed. It may take several days for your symptoms to resolve. Return to the Emergency Department if your symptoms worsen, do not improve, or if you have any other problems. Please contact your foot doctor in 2 days for re-evaluation and follow up. Bring any paperwork you were given at discharge with you along with any medications you are taking to your follow up visit. Our treatment cannot replace ongoing medical care by a primary care provider (PCP) outside of the emergency department. Thank you for allowing the [facility] team to be part of your care today. If you had an X-Ray : A Radiologist will review the ED reading if any change in treatment is needed we will contact you. If you had a blood, or wound culture: It will take several days for the results , if any change in treatment is needed we will contact you. Prescriptions: Sulfamethoxazole/Trimethoprim [Bactrim DS 800 mg-160 mg] 1 tab PO BID #28 tab Instructions: Diabetic Foot Ulcer (DC) Forms: [employer] (Irish), [facility] ED School/Work Excuse Print Language: EMIRATI - PA / JOINT SEALER / Resident Statement MD/DO has reviewed & agrees with the documentation as recorded.
[2017-10-03 13:17] LABS: BASO % 0.4 % (0.0-2.0); EOS # 0.3 K/uL (0.0-0.7); EOS % 5.7 % (0.0-4.0); HEMOGLOBIN 14.1 g/dL (12.0-18.0); LYMPH # 1.7 K/uL (1.0-4.3); LYMPH % 28.3 % (20.0-40.0); MEAN CELL VOLUME 84.8 fl (80.0-94.0); MEAN CORPUSCULAR HEMOGLOBIN 28.4 pg (27.0-31.0); MEAN CORPUSCULAR HGB CONC 33.5 g/dL (33.0-37.0); MEAN PLATELET VOLUME 9.7 fl (7.2-11.7); MONO # 0.5 K/uL (0.0-0.8); MONO % 8.7 % (0.0-10.0); NEUT # 3.4 K/uL (1.8-7.0); NEUT % 56.9 % (50.0-75.0); NRBC % 0.3 % (0.0-0.0); RBC 4.95 Mil/uL (4.40-5.90); RED CELL DISTRIBUTION WIDTH 13.6 % (11.5-14.5)
[2017-10-03 13:22] LABS: ALB/GLOB RATIO 1.1 (1.0-2.1); ALBUMIN 4.2 g/dL (3.5-5.0); ALT/SGPT 41 U/L (21-72); AST/SGOT 24 U/L (17-59); BLOOD UREA NITROGEN 17 mg/dl (9-20); CALCIUM 9.7 mg/dL (8.4-10.2); GFR AFRICAN-AMERICAN > 60; GFR NON-AFRICAN AMERICAN > 60
--- NOTE | 2017-10-03 13:57 | RAD ---
PROCEDURE: Right foot HISTORY: infection COMPARISON: 06/04/2017 MRI right foot Summary of findings on the comparison examination: Findings suggest osteomyelitis distal phalanges 2nd and 3rd digits and potentially head of the 2nd metatarsal. 06/03/2017 right foot radiographs TECHNIQUE: Send Standard protocol for this study/examination. FINDINGS: Erosive changes right 2nd metatarsal phalangeal joint. These are either related to infection or prior trauma. Similar less pronounced changes 3rd metatarsal phalangeal joint. Adjacent soft tissue swelling. IMPRESSION: Soft tissue swelling plantar aspect right foot at the level of the 2nd and 3rd metatarsals. No interval change with respect to adjacent osseous structures.
== END 2017-10-03 15:39 | disposition home or self-care (01) ==
LOC: H.ER 12:07
DX: E11.621 Type 2 diabetes mellitus with foot ulcer (principal); E11.40 Type 2 diabetes mellitus with diabetic neuropathy, unspecified; I10 Essential (primary) hypertension; L97.519 Non-pressure chronic ulcer of other part of right foot with unspecified severity; L97.529 Non-pressure chronic ulcer of other part of left foot with unspecified severity; Z79.84 Long term (current) use of oral hypoglycemic drugs; E78.00 Pure hypercholesterolemia, unspecified
CPT/HCPCS: 73660; 80053; 85025; 85651; 87040; 87070; 87181; 96365; 99283; J3370

== ENCOUNTER 2018-04-15 21:40 | Emergency (ER) | payer OTHER ==
[2018-04-15 21:40] VITALS: BMI 41.5
--- NOTE | 2018-04-15 22:37 | ED PDOC ---
Addendum entered and electronically signed by Amanda Ramires RPA-C 04/18/18 10:31: Addendum Addendum: 04/18/18 10:31 Wound Culture: (+) staph aureus Patient was treated with Bactrim. Original Note: Lower Extremity Pain/Injury Time Seen by Provider: 04/15/18 22:10 Chief Complaint (Nursing): Lower Extremity Problem/Injury Chief Complaint (Provider): left foot 2nd digit swollen History Per: Patient History/Exam Limitations: no limitations Onset/Duration Of Symptoms: Days (4) Current Symptoms Are (Timing): Still Present Additional Complaint(s): 43 y/o male history of type II diabetes presents for evaluation of redness and swelling to left foot 2nd digit x 4 days. 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 Denies fever, nausea/vomiting, numbness/weakness lower extremities. Past Medical History Reviewed: Historical Data, Nursing Documentation, Vital Signs Vital Signs: Last Vital Signs Temp 98.6 F 04/15/18 21:53 Pulse 72 04/15/18 21:53 Resp 17 04/15/18 21:53 BP 148/76 04/15/18 21:53 Pulse Ox 95 04/15/18 21:53 - Medical History PMH: Diabetes (type II, diabetic neuropathy w/in b/l feet, diabetic foot ulcers), HTN, Hypercholesterolemia Denies: Arthritis, CHF, COPD, CVA, Hepatitis, HIV, Hypothyroidism, Chronic Kidney Disease, Rheumatoid Arthritis, Seizures, Sexually Transmitted Disease - Surgical History Surgical History: No Surg Hx Denies: CABG - Family History Family History: States: Diabetes, Hypertension - Immunization History Hx Tetanus Toxoid Vaccination: Yes - Home Medications Home Medications: Ambulatory Orders Medication Instructions Recorded Atorvastatin [Lipitor] 20 mg PO HS tab 06/06/17 GlipiZIDE [Glucotrol] 5 mg PO DAILY@1130 tab 06/06/17 Insulin Human NPH [Humulin N] 4 units SC HS vial 06/06/17 Lisinopril [Zestril] 20 mg PO BID 30 Days #60 tab 06/06/17 MetFORMIN [glucoPHAGE] 1,000 mg PO BID tab 06/06/17 Sulfamethoxazole/Trimethoprim 1 tab PO BID #28 tab 06/06/17 [Bactrim DS 800 mg-160 mg] amLODIPine [Norvasc] 5 mg PO DAILY tab 06/06/17 Naproxen 1 tab PO Q12 PRN #14 tab 08/31/17 Sulfamethoxazole/Trimethoprim 1 tab PO BID #28 tab 10/03/17 [Bactrim DS 800 mg-160 mg] Sulfamethoxazole/Trimethoprim 1 tab PO BID #20 tab 04/16/18 [Bactrim DS 800 mg-160 mg] - Allergies Allergies/Adverse Reactions: Allergies Allergy/AdvReac Type Severity Reaction Status Date / Time No Known Allergies Allergy Verified 04/15/18 21:53 Review of Systems ROS Statement: Except As Marked, All Systems Reviewed And Found Negative Musculoskeletal: Positive for: Foot Pain Physical Exam - Reviewed Nursing Documentation Reviewed: Yes Vital Signs Reviewed: Yes - Physical Exam Appears: Positive for: Well, Non-toxic, No Acute Distress Head Exam: Positive for: ATRAUMATIC, NORMAL INSPECTION, NORMOCEPHALIC Cardiovascular/Chest: Positive for: Regular Rate, Rhythm Respiratory: Positive for: Normal Breath Sounds Pulses-Dorsalis Pedis (L): 2+ Pulses-Dorsalis Pedis (R): 2+ Pulses-Post. Tibialis (L): 2+ Pulses-Post. Tibialis (R): 2+ Extremity: Positive for: Normal ROM, Swelling (diffuse edema, erythema left foot 2nd digit with open ulcerations distal and plantar surfaces. + bleeding noted from ulcerations) Neurologic/Psych: Positive for: Alert, Oriented (x3). Negative for: Motor/Sensory Deficits - Laboratory Results Result Diagrams: 04/15/18 23:39 04/15/18 23:39 - ECG O2 Sat by Pulse Oximetry: 95 - Other Rad xray left foot 2nd digit X-Ray: Viewed By Pa X-Ray Interpretation: chronic bony deformities. no acute findings - Progress ED Course And Treament: labs, xray, podiatry eval Patient evaluated by Dr. Mustafa, podiatry resident on-call; recommends IV abx dose and d/c with Bactrim DS with plan to f/up with Dr. Gilmore in [place] wound care clinic IV vanco, IV zosyn ordered Patient educated on findings, discharged with rx Bactrim DS Advised follow up at wound care clinic as previously instructed Return precautions given Patient demonstrates full understanding of discharge instructions Patient requires no further intervention in the ED and is stable for discharge at this time Disposition - Clinical Impression Clinical Impression: Ulcer of foot due to diabetes mellitus, Cellulitis of left toe - Patient ED Disposition Is Patient to be Admitted: No Counseled Patient/Family Regarding: Studies Performed, Diagnosis, Need For Followup, Rx Given - Disposition Referrals: [facility] [Outside] Disposition: Routine/Home Disposition Time: 04:20 Condition: STABLE Prescriptions: Sulfamethoxazole/Trimethoprim [Bactrim DS 800 mg-160 mg] 1 tab PO BID #20 tab Instructions: Cellulitis and Erysipelas (Skin Infections), Diabetic Foot Ulcer (DC) Print Language: MALTESE
[2018-04-15] MEDS ORDERED: Sodium Chloride 0.9% 1,000 ML IV STA (23:42)
[2018-04-16] LABS: BASO % 0.4 % (0.0-2.0); EOS # 0.3 K/uL (0.0-0.7); HEMOGLOBIN 12.2 g/dL (12.0-18.0); LYMPH # 2.7 K/uL (1.0-4.3); LYMPH % 40.6 % (20.0-40.0); MEAN CELL VOLUME 85.6 fl (80.0-94.0); MEAN CORPUSCULAR HEMOGLOBIN 28.5 pg (27.0-31.0); MEAN CORPUSCULAR HGB CONC 33.3 g/dL (33.0-37.0); MEAN PLATELET VOLUME 9.5 fl (7.2-11.7); MONO # 0.5 K/uL (0.0-0.8); MONO % 7.6 % (0.0-10.0); NEUT # 3.1 K/uL (1.8-7.0); NEUT % 46.4 % (50.0-75.0); RBC 4.29 Mil/uL (4.40-5.90); WHITE BLOOD COUNT 6.6 K/uL (4.8-10.8)
[2018-04-16 00:16] LABS: ALB/GLOB RATIO 1.1 (1.0-2.1); ALBUMIN 3.6 g/dL (3.5-5.0); ALT/SGPT 33 U/L (21-72); AST/SGOT 25 U/L (17-59); BLOOD UREA NITROGEN 14 mg/dl (9-20); CALCIUM 9.3 mg/dL (8.4-10.2); GFR NON-AFRICAN AMERICAN > 60
--- NOTE | 2018-04-16 00:27 | CP.PCM.CON ---
History of Present Illness - History of Present Illness History of Present Illness: Podiatry Consult Note - Dr. Toro 43 year old male PMHx DM, HTN, HLD seen in ED for left 2nd digit redness and swelling. Patient well known to podiatry service. Patient states he first noticed the changes in his 2nd digit a week ago. Patient has noticed the toe has been getting red. Patien denies N/V/F/D/C/SOB currently. Patient denies any pain to his 2nd digit. Of note, patient was previously admitted for cellulitis, infected ulcerations to bilateral feet, and has hx of osteomyelitis. Denies numbness, burning, or tingling in his feet b/l. Offers no other complaints Past surgical history: multiple amputations of toes on the left foot. allergies: NKFDA Past Patient History - Infectious Disease Hx of Infectious Diseases: None - Tetanus Immunizations Tetanus Immunization: Unknown - Past Medical History & Family History Past Medical History?: Yes - Past Social History Smoking Status: Never Smoked - CARDIAC Hx Congestive Heart Failure: No Hx Hypercholesterolemia: Yes Hx Hypertension: Yes - PULMONARY Hx Chronic Obstructive Pulmonary Disease (COPD): No - NEUROLOGICAL Hx Seizures: No - HEENT Hx HEENT Problems: No - RENAL Hx Chronic Kidney Disease: No - ENDOCRINE/METABOLIC Hx Hypothyroidism: No - HEMATOLOGICAL/ONCOLOGICAL Hx Human Immunodeficiency Virus (HIV): No - INTEGUMENTARY Hx Cellulitis: Yes - MUSCULOSKELETAL/RHEUMATOLOGICAL Hx Arthritis: No Hx Rheumatoid Arthritis: No - GASTROINTESTINAL Hx Gastrointestinal Disorders: No - GENITOURINARY/GYNECOLOGICAL Hx Sexually Transmitted Disorders: No - PSYCHIATRIC Hx Psychophysiologic Disorder: No Hx Emotional Abuse: No Hx Physical Abuse: No Hx Substance Use: No - SURGICAL HISTORY Hx Coronary Artery Bypass Graft: No - ANESTHESIA Hx Anesthesia: Yes Hx Anesthesia Reactions: No Hx Malignant Hyperthermia: No Meds Home Medications: Home Medication List Medication Instructions Recorded Confirmed Type Sulfamethoxazole/Trimethoprim 1 tab PO BID #20 tab 04/16/18 Rx [Bactrim DS 800 mg-160 mg] Allergies/Adverse Reactions: Allergies Allergy/AdvReac Type Severity Reaction Status Date / Time No Known Allergies Allergy Verified 04/15/18 21:53 - Medications Medications: Current Medications Sodium Chloride (Sodium Chloride 0.9%) 1,000 mls @ 1,000 mls/hr IV .Q1H STA Stop: 04/16/18 00:41 Last Admin: 04/16/18 00:06 Dose: 1,000 mls/hr Physical Exam - Constitutional Appears: Well, Non-toxic, No Acute Distress - Head Exam Head Exam: ATRAUMATIC, NORMOCEPHALIC - Extremities Exam Additional comments: Left foot focused exam: Vascular: DP/PT 2/4, CFT <3 secs x4, TG warm to warm, minimally increased temperature at the tip of the second digit, erythema noted distal to the second middle phalanx Derm: Ulcer noted at the tip of the second digit, 100% granular base with hyperkeratotic border, no malodor, active sanguinous drainage, no purulence noted, no tracking or tunneling, measures approximately .5cm x.5cm x 1 cm. Neuro: protective sensation grossly intact Ortho: pain on palpation of the ulcer. no pain with ROM of the ankle or foot joints - Neurological Exam Neurological exam: Alert, Oriented x3 - Psychiatric Exam Psychiatric exam: Normal Affect, Normal Mood - Skin Skin Exam: Normal Color Results - Vital Signs Recent Vital Signs: Last Vital Signs Temp 98.6 F 04/15/18 21:53 Pulse 72 04/15/18 21:53 Resp 17 04/15/18 21:53 BP 148/76 04/15/18 21:53 Pulse Ox 95 04/15/18 22:54 - Labs Result Diagrams: 04/15/18 23:39 04/15/18 23:39 Labs: Laboratory Results - last 24 hr 04/15/18 04/15/18 04/15/18 23:39 23:39 23:39 WBC 6.6 RBC 4.29 L Hgb 12.2 Hct 36.7 MCV 85.6 MCH 28.5 MCHC 33.3 RDW 14.0 Plt Count 236 MPV 9.5 Neut % (Auto) 46.4 L Lymph % (Auto) 40.6 H Barnwell % (Auto) 7.6 Eos % (Auto) 5.0 H Baso % (Auto) 0.4 Neut # (Auto) 3.1 Lymph # (Auto) 2.7 Barnwell # (Auto) 0.5 Eos # (Auto) 0.3 Baso # (Auto) 0.0 Sodium 142 Potassium 4.2 Chloride 104 Carbon Dioxide 30 Anion Gap 12 BUN 14 Creatinine 0.6 L Est GFR ( Amer) > 60 Est GFR (Non-Af Amer) > 60 Random Glucose 310 H Lactic Acid 1.6 Calcium 9.3 Total Bilirubin 0.2 AST 25 ALT 33 Alkaline Phosphatase 66 Total Protein 6.8 Albumin 3.6 Albumin/Globulin Ratio 1.1 Assessment & Plan - Assessment and Plan (Free Text) Assessment: 43 yo male with PMhx of diabetes, htn, hld presents to the ED with an ulcer at the tip of the left second digit with minimal erythema surrounding the wound. Plan: Patient seen and evaluated Chart, labs and vitals reviewed; patient afebrile, absent leukocytosis Patients history and plan discussed in detail with the attending, Dr Gilmore Patients x-rays reviewed; no acute pathology noted Wound cultures taken from the left second digit ulcer Wound cleansed with saline and dressed with betadine soaked gauze and DSD Surgical shoe dispensed Patient advised to wear surgical shoe at all times IV vanc/zosyn x 1 dose given in the ED Patient d/c with bactrim DS Patient to follow up in [facility] with Dr. Gilmore. Thank you for the consult - Date & Time Date: 04/16/18 Time: 09:54
[2018-04-16] MEDS ORDERED: Povidone Iodine Oint 10% Foilpak UD ONE (00:58)
[2018-04-16] MEDS ORDERED: Piperacillin/Tazobact 3.375 GM in Sodium Chloride 0.9% 100 ML IV ONE (01:11)
[2018-04-16] MEDS ORDERED: Piperacillin/Tazobact 3.375 gm Inj IVPB ONE ×2 (02:11→02:17)
[2018-04-16 05:46] VITALS: BP 157/80; PULSE 60; RESP 18; TEMP 98.2
[2018-04-16 05:53] VITALS: O2SAT 95
--- NOTE | 2018-04-16 10:20 | RAD ---
Date of service: 04/15/2018 PROCEDURE: HISTORY: redness/swelling/ulcerations COMPARISON: 03/22/2017 TECHNIQUE: Three views FINDINGS: Partial amputation its 3rd 4th and 5th metatarsals similar appearing well corticated ossific debris regional to the distal amputated ends suggested 4th phalanges amputated. Prior sub cortical subchondral cystic changes 1st metatarsal base now ossified. And hypertrophic. Os tibial externum incidentally noted. Interval ossifications over 2nd distal phalangeal soft tissues here osteomyelitis is a concern. Associated distal 2nd digital soft tissue hyperdensity and swelling here. No gas-forming cellulitis appreciated. No other areas of cortical interruption or destruction to suggest acute osteomyelitis. Areas of chronic osteomyelitis compatible prior appearances as well as Charcot joints at the tarsal metatarsal articulations. IMPRESSION: Findings concerning for interval osteomyelitis 2nd distal phalanx with regional soft tissue swelling in hyperdensity compatible with cellulitis. No gas-forming cellulitis appreciated. Background extensive postsurgical changes. Background Charcot joint arthropathy. Other findings as above.
== END 2018-04-16 05:10 | disposition home or self-care (01) ==
LOC: H.ER 21:40
DX: E11.621 Type 2 diabetes mellitus with foot ulcer (principal); L03.032 Cellulitis of left toe; B95.61 Methicillin susceptible Staphylococcus aureus infection as the cause of diseases classified elsewhere
CPT/HCPCS: 73660; 80053; 82948; 83605; 85025; 87040; 87070; 87181; 99283; J2543; J7030

== ENCOUNTER 2018-10-24 20:59 | Emergency (ER) | payer SELFPAY ==
[2018-10-24 20:59] VITALS: BMI 41.5
[2018-10-24] MEDS ORDERED: Fluorescein 1 mg Ophthalmic Strip OS ONE (21:23)
[2018-10-24] MEDS ORDERED: Tetracaine 0.5% Ophth 2 ML BOTTLE OS ONE (21:23)
[2018-10-24] MEDS ORDERED: Tobramycin 0.3% OPHT SOLN OS ONE (21:32)
--- NOTE | 2018-10-24 22:04 | ED PDOC ---
HPI: Eye Injury/Pain Time Seen by Provider: 10/24/18 21:14 Chief Complaint (Nursing): Eye Problem Chief Complaint (Provider): Eye Problem History Per: Patient History/Exam Limitations: no limitations Onset/Duration Of Symptoms: Hrs (this morning) Current Symptoms Are (Timing): Still Present Wears Contact Lens?: No Additional Complaint(s): 43 year old male with no significant past medical history presents to the ED with left eye discomfort onset this morning. 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 Patient reports irritation, increased tearing and redness to the eye since onset. Patient reported that he does not wear glasses or contacts. Patient states that he took no medication prior to arrival. Patient denies visual changes, and other complaints. PMD: none provided Past Medical History Reviewed: Historical Data, Nursing Documentation, Vital Signs Vital Signs: Last Vital Signs Temp 99.2 F 10/24/18 21:04 Pulse 76 10/24/18 21:04 Resp 14 10/24/18 21:04 BP 183/89 H 10/24/18 21:04 Pulse Ox 96 10/24/18 21:04 CARYN Report Viewed: Yes - Medical History PMH: Diabetes (type II, diabetic neuropathy w/in b/l feet, diabetic foot ulce rs), HTN, Hypercholesterolemia - Surgical History Other surgeries: abdominal surgery to remove metal object as a child - Family History Family History: States: Diabetes, Hypertension - Home Medications Home Medications: Ambulatory Orders Medication Instructions Recorded Atorvastatin [Lipitor] 20 mg PO HS tab 06/06/17 GlipiZIDE [Glucotrol] 5 mg PO DAILY@1130 tab 06/06/17 Insulin Human NPH [Humulin N] 4 units SC HS vial 06/06/17 Lisinopril [Zestril] 20 mg PO BID 30 Days #60 tab 06/06/17 MetFORMIN [glucoPHAGE] 1,000 mg PO BID tab 06/06/17 Sulfamethoxazole/Trimethoprim 1 tab PO BID #28 tab 06/06/17 [Bactrim DS 800 mg-160 mg] amLODIPine [Norvasc] 5 mg PO DAILY tab 06/06/17 Naproxen 1 tab PO Q12 PRN #14 tab 08/31/17 Sulfamethoxazole/Trimethoprim 1 tab PO BID #28 tab 10/03/17 [Bactrim DS 800 mg-160 mg] Sulfamethoxazole/Trimethoprim 1 tab PO BID #20 tab 04/16/18 [Bactrim DS 800 mg-160 mg] Tobramycin 0.3% [Tobrex 0.3% Ophth 1 drop OS Q6 #1 bottle 10/24/18 Soln] - Allergies Allergies/Adverse Reactions: Allergies Allergy/AdvReac Type Severity Reaction Status Date / Time No Known Allergies Allergy Verified 10/24/18 21:04 Review of Systems Eyes: Positive for: Redness, Other ( irritation and increased tearing). Negative for: Vision Change Physical Exam - Reviewed Nursing Documentation Reviewed: Yes Vital Signs Reviewed: Yes - Physical Exam Comments: GENERAL APPEARANCE: Patient is awake, alert, oriented x 3, in no acute distress. Resting comfortably. HEENT: (-) facial swelling and erythema, (-) facial blisters. VISUAL ACUITIES: Left eye: 20/ 70 ; Right eye: 20/ 30. Both: 20/40. LIDS & LASHES: Normal (-) crusting PERIORBITAL: (-) erythema, (-) edema, (-) tenderness PUPILS: Pupils reactive and reactive. EOMI's: Intact and painless. LID EVERSION: (-) foreign body visualized ANTERIOR CHAMBER: (-) foreign body CONJUNCTIVA: (+) faint erythema to left eye FLUORESCEIN: (+) 2mm area uptake 2 o'clock position to iris RESPIRATORY: lungs clear to auscultation bilaterally (-) rales (-) rhonchi (-) wheezing CARDIAC: RRR NECK: Supple, FROM - ECG O2 Sat by Pulse Oximetry: 96 (RA) Pulse Ox Interpretation: Normal Medical Decision Making Medical Decision Making: Clinical Impression: Eye irritation Time: 21:15 Plan: -Fluorescein 1 mg OS ONCE -Tetracaine 0.5% Ophth 1 Drop OS ONCE ONE -Tobramycin 0.3% 1 drop OS ONCE ONE -Nursing communication as ordered - visual acuity -Re-evaluate 2210 Repeat BP: 148/80 On re-evaluation, patient reports improvement of symptoms. On exam, patient rem ains AAOx3, in no acute distress. Vitals stable. Lab/Diagnostic results d/w the patient in great detail. Diagnosis of acute eye irritation, conjunctival abrasion d/w the patient. Based on history, exam and diagnostic results, plan will be for outpatient follow up with ophtho stressed to patient within 48 hours. Patient instructed to follow-up with pmd / referral provided / the clinic in 1- 2 days without fail. Advised to take medication as prescribed. Return to the emergency room at any time for any new or worsening symptoms. Patient states he fully agrees with and understands discharge instructions. States that he agrees with the plan and disposition. Verbalized and repeated discharge instructions and plan. I have given the patient opportunity to ask any additional questions. --------- -------- Scribe Attestation: Documented by Anurag Stone, acting as a scribe for Amanda Ramires PA-C. Provider Scribe Attestation: All medical record entries made by the Scribe were at my direction and personally dictated by me. I have reviewed the chart and agree that the record accurately reflects my personal performance of the history, physical exam, medical decision making, and the department course for this patient. I have also personally directed, reviewed, and agree with the discharge instructions and dis position. Disposition - Clinical Impression Clinical Impression: Eye irritation, Conjunctival abrasion - Patient ED Disposition Is Patient to be Admitted: No Counseled Patient/Family Regarding: Studies Performed, Diagnosis, Need For Followup, Rx Given - Disposition Referrals: Ethan Faith MD [Staff Provider] - Disposition: Routine/Home Disposition Time: 22:10 Condition: STABLE Additional Instructions: La atencin mdica de emergencia que recibi hoy se dirigi a jenna sntomas agudos. Si le recetaron algn medicamento, llnelo y tmelo segn las indicaciones. Los sntomas pueden tardar varios bryant en resolverse. Regrese al Departamento de Emergencias si jenna sntomas empeoran, no mejoran o si tiene otros problemas. Comunquese con woodson mdico dentro de 2 bryant para ryan nueva evaluacin y hoa un seguimiento o llame a kevin de los mdicos / clnicas a los que wiley sido referido y que figuran en el formulario de Informacin de visita al paciente que se incluye en woodson paquete de tamia. Lleve todos los documentos que le entregaron al momento del tamia junto con todos los medicamentos que est tomando para woodson visita de se guimiento. Nuestro tratamiento no puede reemplazar la atencin mdica continua por parte de un proveedor de atencin primaria (PCP) fuera del departamento de emergencias. Prescriptions: Tobramycin 0.3% [Tobrex 0.3% Ophth Soln] 1 drop OS Q6 #1 bottle Instructions: Corneal Abrasion, How to Care for Your Eyes, How to Use Eye Drops Forms: [facility] ([place]) Print Language: SAMMARINESE - POCasey Present On Arrival: None
[2018-10-24 22:38] VITALS: BP 148/80; PULSE 78; RESP 18; TEMP 98.2
[2018-10-26 17:37] VITALS: O2SAT 96
== END 2018-10-24 22:25 | disposition home or self-care (01) ==
LOC: H.ER 20:59
DX: S05.02XA Injury of conjunctiva and corneal abrasion without foreign body, left eye, initial encounter (principal); X58.XXXA Exposure to other specified factors, initial encounter; Y92.89 Other specified places as the place of occurrence of the external cause; E11.40 Type 2 diabetes mellitus with diabetic neuropathy, unspecified; E78.00 Pure hypercholesterolemia, unspecified; I10 Essential (primary) hypertension; Z79.84 Long term (current) use of oral hypoglycemic drugs